=== PATIENT | male | born 1970 | race Caucasian/White ===

== ENCOUNTER 2016-08-18 16:14 | Emergency (ER) | payer OTHER ==
[~2016-08-18] VITALS: Ht 165.1 cm; Wt 107.0 kg
[~2016-08-18 16:14] MED LIST: HYDR-762 PO; ONDA4TAB35 PO
[2016-08-18 16:25] VITALS: Ht 165.1 cm; Wt 107.0 kg
[2016-08-18] MEDS ORDERED: KETOROLAC 30 MG INJ IV STA (16:53)
[2016-08-18] MEDS ORDERED: SOD CHLORIDE 0.9% 1,000 ML IV ONE (17:00)
[2016-08-18 17:02] LABS: URINE BLOOD (Dip) POC 1+ (NEGATIVE)
--- NOTE | 2016-08-18 17:35 | RADRPT ---
PROCEDURE: Renal US. CLINICAL INDICATION: Flank pain. TECHNIQUE: Multiple sonographic images of the kidneys and urinary bladder were obtained. The imag es were reviewed on a PACS workstation. COMPARISON: CT scan of the abdomen and pelvis dated 03/14/2015. FINDINGS: The right kidney measures 12.8 cm. The left kidney measures 13.0 cm. There is no renal mass. There is no hydronephrosis. There is a nonobstructing calculus in the left renal pelvis measuring 1.6 cm. There is no other laura al calculus. Renal parenchymal thickness is normal bilaterally. Echogenicity is normal bilaterally. The perirenal regions are normal with no fluid collection or mass. The urinary bladder is unremarkable. IMPRESSION: 1. Nonobstructing 1.6 cm calculus in the left renal pelvis. 2. Otherwise normal renal ultrasound. RPTAT: QQ .Pete Araujo MD, Date Time Electronically viewed and signed by .Pete Araujo MD, MD on 08/18/2016 17:35 .R/
[2016-08-18 17:40] LABS: ADD UMIC YES; UR ASCORBIC ACID NEGATIVE (NEGATIVE); UR BILIRUBIN (Dip) NEGATIVE (NEGATIVE); UR BLOOD (Dip) 2+ mg/dL (NEGATIVE); UR CLARITY CLEAR (CLEAR); UR COLOR STRAW (YELLOW); UR GLUCOSE (Dip) NEGATIVE (NEGATIVE); UR KETONES (Dip) NEGATIVE (NEGATIVE); UR LEUKOCYTE ESTERASE (Dip) NEGATIVE Leu/ul (NEGATIVE); UR NITRITE (Dip) NEGATIVE (NEGATIVE); UR RBC 0 /HPF (0-5); UR SPECIFIC GRAVITY (Dip) 1.011 (1.003-1.030); UR TOTAL PROTEIN (Dip) NEGATIVE (NEGATIVE); UR UROBILINOGEN (Dip) NEGATIVE (NEGATIVE)
[2016-08-18 17:53] LABS: ADD SCAN DIFF NO
[2016-08-18 17:56] LABS: ABNORMAL IP MESSAGE 1; BASOPHILS % 0.4 % (0.0-2.0); EOSINOPHILS # 0.1 10^3/ul (0.0-0.5); EOSINOPHILS % 1.4 % (0.0-7.0); HEMATOCRIT 41.8 % (42.0-52.0); HEMOGLOBIN 13.2 g/dl (14.0-18.0); LYMPHOCYTES # 1.8 10^3/ul (0.8-2.9); MEAN CORPUSCULAR HEMOGLOBIN 26.8 pg (29.0-33.0); MEAN CORPUSCULAR HGB CONC 31.6 g/dl (32.0-37.0); MEAN PLATELET VOLUME 13.4 fl (7.4-10.4); MONOCYTE # 0.8 10^3/ul (0.3-0.9); MONOCYTES % 7.9 % (0.0-11.0); NEUTROPHIL # 6.7 10^3/ul (1.6-7.5); NEUTROPHILS % 70.6 % (39.0-77.0); PLATELET COUNT 147 10^3/UL (140-415); RED BLOOD COUNT 4.92 10^6/ul (4.70-6.10); RED CELL DISTRIBUTION WIDTH 15.2 % (11.5-14.5); WHITE BLOOD COUNT 9.5 10^3/ul (4.8-10.8)
[2016-08-18 18:19] LABS: ALBUMIN 4.5 g/dl (3.3-4.9); ALBUMIN/GLOBULIN RATIO 1.55; BILIRUBIN,INDIRECT 0.3 mg/dl (0-1.1); BILIRUBIN,TOTAL 0.3 mg/dl (0.2-1.3); CALCIUM 9.6 mg/dl (8.4-10.2); CREATININE 1.12 mg/dl (0.61-1.24); POTASSIUM 3.8 mmol/L (3.5-5.1); TOTAL PROTEIN 7.4 g/dl (6.1-8.1)
[2016-08-18 19:44] LABS: PARTIAL THROMBOPLASTIN TIME 40.6 Sec (25.0-35.0)
[2016-08-18 20:54] LABS: INR 0.96; PROTIME 12.8 Sec (12.2-14.2)
[2016-08-18] MEDS ORDERED: NAPR-260 PO (21:01)
[2016-08-18] MEDS ORDERED: TAMS-14 PO (21:01)
[2016-08-18] MEDS ORDERED: HYDR-906 PO (21:03)
[2016-08-18] MEDS ORDERED: HYDR25SU23 PR (21:16)
[2016-08-18 21:26] VITALS: BP 118/78; PULSE 72; RESP 20; TEMP 98.7
--- NOTE | 2016-08-19 00:08 | ERD ---
ER Documentation Chief Complaint Date/Time DATE: 08/19/16 TIME: 00:05 Chief Complaint Complains of back pain x 4 -5 days HPI 46-year-old male patient with a past medical history of nephrolithiasis presents the ED complaining of left flank pain that started about 4-5 days ago. Patient reports that it is a sharp pain and rates it a 10 out of 10. States that the pain radiates from the left flank region to the left lower quadrant. States that he also may have a history of hemorrhoids and feels like he is having slight rectal bleeding upon wiping on the toilet paper. Patient reports that it is bright red in color. States that this is been going on intermittently for 1 year. Denies having any rectal intercourse. Denies any chest pain, shortness of breath, nausea, vomiting, diarrhea, constipation. Denies any melena or bloody stools. ROS All systems reviewed and are negative except as per history of present illness. Medications Home Meds Active Scripts Oxycodone HCl/Acetaminophen (Percocet 5-325 mg Tablet) 1 Each Tablet, 1 TAB PO Q4 for flank pain, #14 TAB Prov:KAITLINDEIRDRE 08/24/16 Hydrocortisone Acetate (Anusol-Hc) 25 Mg Supp.rect, 1 SUPP [place] BID Y for HEMORROID PAIN/ITCHING, #12 SUPP.RECT Prov:RUFINO RIZZO PA-C 08/18/16 Hydrocodone/Acetaminophen ([place] 5-325 Tablet) 1 Each Tablet, 1 TAB PO Q6H Y for PAIN, #14 TAB Prov:RUFINO RIZZO PA-C 08/18/16 Tamsulosin Hcl* (Flomax*) 0.4 Mg Cap.er.24h, 0.4 MG PO QPM, #20 CAP Prov:RUFINO RIZZO PA-C 08/18/16 Ondansetron Hcl* (Zofran* ODT) 4 mg -ODT Tab.disper, 4 MG PO Q6 Y for NAUSEA AND /OR VOMITING, #30 TAB Prov:TRISH GARCÍA MD 03/14/15 Hydrocodone Bit-Acetaminophen* ([place]*) 10-325 Mg Tablet, 1 TAB PO Q6 Y for PAIN , #7 TAB Prov:TRISH GARCÍA MD 03/14/15 Allergies Allergies: Coded Allergies: No Known Allergy (Unverified , 09/28/13) PMhx/Soc History of Surgery: No Hx Miscellaneous Medical Probl: No (NO MEDICAL OR SURGICAL HISTORY) Hx Alcohol Use: Yes Hx Substance Use: No Hx Tobacco Use: Yes (X1 PACK/DAY) Smoking Status: Never smoker Physical Exam Vitals Vital Signs Date Time Temp Pulse Resp B/P Pulse Ox O2 Delivery O2 Flow Rate FiO2 08/18/16 21:26 98.7 72 20 118/78 97 Room Air 08/18/16 16:25 99.1 113 20 126/84 97 Physical Exam Const: [id number], well-nourished. In no acute distress. Head: Atraumatic, normocephalic Eyes: Normal Conjunctiva without injection. No purulent discharge. ENT: Normal external ear, nose. Moist oropharynx without tonsillar exudates. Non -erythematous pharynx. Uvula midline. No drooling. No trismus. Neck: No cervical midline tenderness. Full range of motion. No meningismus. No cervical lymphadenopathy. No JVD. Resp: Clear to auscultation bilaterally. No wheezing, rhonchi, rales, or crackles. No accessory muscle use. No retractions. Cardio: Regular rate and rhythm. No murmurs, rubs or gallops. Abd: Soft, nontender, non distended. Normal bowel sounds. No palpable masses. No rebound tenderness. No guarding. Negative McBurney's point. Negative psoas sign. Negative obturator sign. Skin: No petechiae or rashes Back: No midline tenderness. No CVA tenderness. Ext: No cyanosis, or edema. Neur: Awake and alert. Normal gait. Normal coordination. Psych: Normal Mood and Affect Results 24 hrs Laboratory Tests Test 08/18/16 17:02 08/18/16 17:06 08/18/16 17:10 08/18/16 17:20 Urine Color STRAW Urine Clarity CLEAR Urine pH 5.0 Urine Specific Loyal 1.011 Urine Ketones NEGATIVEmg/dL Urine Nitrite NEGATIVEmg/dL Urine Bilirubin NEGATIVEmg/dL Urine Urobilinogen NEGATIVEmg/dL Urine Leukocyte Esterase NEGATIVELeu/ul Urine Microscopic RBC 0/HPF Urine Microscopic WBC 2/HPF Urine Hemoglobin 2+mg/dL Urine Glucose NEGATIVEmg/dL Urine Total Protein NEGATIVEmg/dl Bedside Urine pH (LAB) 5.5 Bedside Urine Protein (LAB) Negative Bedside Urine Glucose (UA) Negative Bedside Urine Ketones (LAB) Negative Bedside Urine Blood 1+ Bedside Urine Nitrite (LAB) Negative Bedside Urine Leukocyte Esterase (L Negative White Blood Count 9.510^3/ul Red Blood Count 4.9210^6/ul Hemoglobin 13.2g/dl Hematocrit 41.8% Mean Corpuscular Volume 85.0fl Mean Corpuscular Hemoglobin 26.8pg Mean Corpuscular Hemoglobin Concent 31.6g/dl Red Cell Distribution Width 15.2% Platelet Count 85624^3/UL Mean Platelet Volume 13.4fl Neutrophils % 70.6% Lymphocytes % 19.0% Monocytes % 7.9% Eosinophils % 1.4% Basophils % 0.4% Nucleated Red Blood Cells % 0.0/100WBC Neutrophils # 6.710^3/ul Lymphocytes # 1.810^3/ul Monocytes # 0.810^3/ul Eosinophils # 0.110^3/ul Basophils # 0.010^3/ul Nucleated Red Blood Cells # 0.010^3/ul Prothrombin Time 12.8Sec Prothrombin Time Ratio 1.0 INR International Normalized Ratio 0.96 Activated Partial Thromboplast Time 40.6Sec Sodium Level 145mmol/L Potassium Level 3.8mmol/L Chloride Level 109mmol/L Carbon Dioxide Level 25mmol/L Anion Gap 15 Blood Urea Nitrogen 19mg/dl Creatinine 1.12mg/dl Glucose Level 150mg/dl Calcium Level 9.6mg/dl Total Bilirubin 0.3mg/dl Direct Bilirubin 0.00mg/dl Indirect Bilirubin 0.3mg/dl Aspartate Amino Transf (AST/SGOT) 20IU/L Alanine Aminotransferase (ALT/SGPT) 35IU/L Alkaline Phosphatase 65IU/L Total Protein 7.4g/dl Albumin 4.5g/dl Globulin 2.90g/dl Albumin/Globulin Ratio 1.55 Lipase 61U/L Stool Occult Blood POSITIVE Current Medications Medications (Trade) Dose Ordered Sig/Jaison Route PRN Reason Start Time Stop Time Status Last Admin Dose Admin Ketorolac Tromethamine 30 mg 30 mg ONCE STAT IV 08/18/16 16:53 08/18/16 16:56 DC 08/18/16 17:13 Sodium Chloride (NS) 1,000 ml @ 1,000 mls/hr Q1H ONCE IV 08/18/16 17:00 08/18/16 17:59 DC 08/18/16 17:13 Procedures/MDM This is a 46-year-old male patient with no significant past medical history presents to the ED complaining of back pain that started 5 days ago. Patient is afebrile and nontoxic-appearing. Patient has normal vital signs. Patient was further worked up with CBC, CMP, lipase, UA, renal ultrasound. Positive Hemoccult. Could likely be due to hemorrhoids. However patient was strictly instructed to follow-up with his primary care physician for a referral to plan nurse obtain a colonoscopy. Patient's pain and symptoms have improved after treatment with 30 mg IV ketorolac, 1 L of normal saline. CBC: No leukocytosis. No e/o of systemic infection. No e/o anemia. CMP: No e/o severe acidosis, alkalosis, renal failure, diabetic ketoacidosis, liver disease Lipase within normal limits. Urine: No leukocyte esterase, no nitrites, no hematuria. Pending urine culture. PROCEDURE: Renal US. CLINICAL INDICATION: Flank pain. TECHNIQUE: Multiple sonographic images of the kidneys and urinary bladder were obtained. The images were reviewed on a PACS workstation. COMPARISON: CT scan of the abdomen and pelvis dated 03/14/2015. FINDINGS: The right kidney measures 12.8 cm. The left kidney measures 13.0 cm. There is no renal mass. There is no hydronephrosis. There is a nonobstructing calculus in the left renal pelvis measuring 1.6 cm. There is no other renal calculus. Renal parenchymal thickness is normal bilaterally. Echogenicity is normal bilaterally. The perirenal regions are normal with no fluid collection or mass. The urinary bladder is unremarkable. IMPRESSION: 1. Nonobstructing 1.6 cm calculus in the left renal pelvis. 2. Otherwise normal renal ultrasound. Patient has a nonobstructing 1.6 cm calculus in the left renal pelvis. There is no suspicion for any hydronephrosis or septic renal stone. Low suspicion for GI bleed, gastritis, GERD, peptic ulcer disease, cholecystitis, choledocholithiasis, cholangitis, pancreatitis, appendicitis, bowel obstruction , ileus, volvulus, nephrolithiasis, pyelonephritis, hepatitis, perforated viscus , diverticulitis, abdominal hernia, acute abdomen, mesenteric ischemia or other emergent conditions. Discharge medications: Horse [place], Tamsulosin Follow up with primary care physician in 1-2 days for referral to plan nurse for colonoscopy for urologist for rental stone. Instructed patient to return to the ED sooner for any worsening symptoms. Patient's questions were answered. Patient understood and agreed with discharge plan. Patient discharged stable. Departure Diagnosis: Primary Impression: Flank pain Condition: Stable Patient Instructions: Hemorrhoids, Kidney Stone W/ Colic Referrals: [facility] YOU HAVE RECEIVED A MEDICAL SCREENING EXAM AND THE RESULTS INDICATE THAT YOU DO NOT HAVE A CONDITION THAT REQUIRES URGENT TREATMENT IN THE EMERGENCY DEPARTMENT. FURTHER EVALUATION AND TREATMENT OF YOUR CONDITION CAN WAIT UNTIL YOU ARE SEEN IN YOUR DOCTORS OFFICE WITHIN THE NEXT 1-2 DAYS. IT IS YOUR RESPONSIBILITY TO MAKE AN APPOINTMENT FOR FOLOW-UP CARE. IF YOU HAVE A PRIMARY DOCTOR --you should call your primary doctor and schedule an appointment IF YOU DO NOT HAVE A PRIMARY DOCTOR YOU CAN CALL OUR PHYSICIAN REFERRAL HOTLINE AT IF YOU CAN NOT AFFORD TO SEE A PHYSICIAN YOU CAN CHOSE FROM THE FOLLOWING [facility] [email or web address] [facility]. [facility] [email or web address] [facility]. [facility] [address] [facility] [facility] [address] [facility] [address] [facility]. [facility]. [address] [facility]. [facility] YOU HAVE RECEIVED A MEDICAL SCREENING EXAM AND THE RESULTS INDICATE THAT YOU DO NOT HAVE A CONDITION THAT REQUIRES URGENT TREATMENT IN THE EMERGENCY DEPARTMENT. FURTHER EVALUATION AND TREATMENT OF YOUR CONDITION CAN WAIT UNTIL YOU ARE SEEN IN YOUR DOCTORS OFFICE WITHIN THE NEXT 1-2 DAYS. IT IS YOUR RESPONSIBILITY TO MAKE AN APPOINTMENT FOR FOLOW-UP CARE. IF YOU HAVE A PRIMARY DOCTOR --you should call your primary doctor and schedule and appointment IF YOU DO NOT HAVE A PRIMARY DOCTOR YOU CAN CALL OUR PHYSICIAN REFERRAL HOTLINE AT . IF YOU CAN NOT AFFORD TO SEE A PHYSICIAN YOU CAN CHOSE FROM THE FOLLOWING [facility] INSTITUTIONS: [facility] [address] [place] [address] [facility] [address] [place] [address] [facility] [address] [place] [address] [facility] URGENT CARE/SPECIALTIES Additional Instructions: Call your primary care doctor TOMORROW for an appointment during the next 2-3 days for a referral to see a plan nurse to obtain a colonscopy and also see a urologist for diagnosed kidney stone. See the doctor sooner or return here if your condition worsens before your appointment time. You have been given a medicine which may cause drowsiness.DO NOT DRIVE OR OPERATE DANGEROUS MACHINERY while taking this medicine! RUFINO RIZZO PA-C Aug 19, 2016 00:08 RUFINO RIZZO PA-C Aug 19, 2016 00:08
[2016-08-28] MEDS ORDERED: AMO500 PO (02:05)
[2016-08-28] MEDS ORDERED: IBUP400T22 PO (02:05)
[2016-08-28] MEDS ORDERED: METF500T4 PO (02:05)
[2016-08-28] MEDS ORDERED: CIPR500T4 PO (02:05)
[2016-08-28] MEDS ORDERED: CEPH500C PO (02:05)
[2016-08-28] MEDS ORDERED: OMEP40CA6 PO (02:05)
[2016-08-28] MEDS ORDERED: ACET-141 PO (02:05)
[2016-08-31] MEDS ORDERED: TAMS-14 PO ×2 (10:33→12:15)
== END 2016-08-18 21:29 | disposition home or self-care (01) ==
LOC: FTE 16:14
DX: R10.9 Unspecified abdominal pain (principal); F17.210 Nicotine dependence, cigarettes, uncomplicated
CPT/HCPCS: 36415; 76775; 80053; 81001; 82270; 83690; 85025; 85610; 85730; 87086; 96374; J1885; J7030; Z7502; 81003

== ENCOUNTER 2016-08-23 23:58 | Emergency (ER) | payer OTHER ==
[~2016-08-23] VITALS: Ht 172.7 cm; Wt 100.0 kg
[~2016-08-23 23:58] MED LIST changes: +HYDR-906 PO; +HYDR25SU23 PR; +TAMS-14 PO
[2016-08-24] VITALS: Ht 172.7 cm; Wt 100.0 kg
[2016-08-24] MEDS ORDERED: SOD CHLORIDE 0.9% 1,000 ML IV STA (01:03)
[2016-08-24] MEDS ORDERED: ONDANSETRON 4 MG INJ IV STA (01:03)
[2016-08-24] MEDS ORDERED: HYDROmorphONE 1 MG/ML SYG IV STA (01:03)
--- NOTE | 2016-08-24 01:32 | ERD ---
ER Documentation Chief Complaint Date/Time DATE: 08/24/16 TIME: 01:24 Chief Complaint RIGHT FLANK PAIN TONIGHT HX KIDNEY STONE HPI This 46-year-old male patient brought in by EMT for right flank pain. Patient has history of nephrolithiasis is seen here at [facility] August 20, 2015. Patient currently is taking Elkhorn and Flomax for pain reports that pain has not improved it is described as sharp and rates it at 25 on pain scale. Patient is in room with his family, patient's reports that he was called today by [facility] physician and told he had a urinary tract infection started on cephalexin 1 500 mg 1 tab p.o. twice daily 7 days. Patient's also reports he is being treated by his primary physician for H pylori with clarithromycin 500 mg 1 tab p.o. twice daily 10 days and amoxicillin 500 mg 2 tabs p.o. twice daily. Chart review shows that patient has an E. coli urinary tract infection resistant to ampicillin greater than 32. Tobramycin sensitivity less than 1. Patient will continue all medications as prescribed. Patient had a renal ultrasound on 08/19/2015 documenting a nonobstructing 1.6 cm calculi in the left renal pelvis, otherwise normal renal ultrasound documented. ROS All systems reviewed and are negative except as per history of present illness. Medications Home Meds Active Scripts Hydrocortisone Acetate (Anusol-Hc) 25 Mg Supp.rect, 1 SUPP [place] BID Y for HEMORROID PAIN/ITCHING, #12 SUPP.RECT Prov:RUFINO RIZZO PA-C 08/18/16 Hydrocodone/Acetaminophen (Elkhorn 5-325 Tablet) 1 Each Tablet, 1 TAB PO Q6H Y for PAIN, #14 TAB Prov:RUFINO RIZZO PA-C 08/18/16 Reported Medications Tamsulosin Hcl* (Flomax*) 0.4 Mg Cap.er.24h, 0.4 MG PO BID, CAP 08/31/16 Omeprazole* (Omeprazole*) 40 Mg Capsule.dr, 40 MG PO DAILY, #30 CAP 08/28/16 Metformin* (Glucophage*) 500 Mg Tab, 500 MG PO WITH BREAKFAST DINNE, #30 TAB 08/28/16 Acetaminophen* (Acetaminophen*) 500 MG Extra Strength Tablet, 500 MG PO Q4H Y for PAIN AND OR ELEVATED TEMP, TAB 08/28/16 Discontinued Reported Medications Ciprofloxacin Hcl* (Ciprofloxacin Hcl*) 500 Mg Tablet, 500 MG PO BID, #14 TAB 08/28/16 Cephalexin* (Cephalexin*) Unknown Strength Capsule, PO Q6, #28 CAP 08/28/16 Amoxicillin* (Amoxicillin*) 500 Mg Cap, 500 MG PO BID, #20 CAP 08/28/16 Ibuprofen* (Ibuprofen*) 400 Mg Tablet, 400 MG PO Q6H Y for PAIN, TAB 08/28/16 Discontinued Scripts Oxycodone HCl/Acetaminophen (Percocet 5-325 mg Tablet) 1 Each Tablet, 1 TAB PO Q4 for flank pain, #14 TAB Prov:KAITLINDEIRDRE 08/24/16 Tamsulosin Hcl* (Flomax*) 0.4 Mg Cap.er.24h, 0.4 MG PO QPM, #20 CAP Prov:RUFINO RIZZO PA-C 08/18/16 Allergies Allergies: Coded Allergies: No Known Allergy (Unverified , 08/30/16) PMhx/Soc Medical and Surgical Hx: pt denies Surgical Hx History of Surgery: No Hx Miscellaneous Medical Probl: Yes (DM) Hx Alcohol Use: Yes Hx Substance Use: No Hx Tobacco Use: Yes (X1 PACK/DAY) Smoking Status: Current every day smoker Physical Exam Vitals Vitals stable, triage notes reviewed Physical Exam Const: Obese, in obvious discomfort, no acute distress Head: Atraumatic Eyes: Normal Conjunctiva ENT: Normal External Ears, Nose and Mouth. Neck: Full range of motion..~ No meningismus. Resp: Clear to auscultation bilaterally, no respiratory distress Cardio: Regular rate and rhythm, no murmurs Abd: Soft, distended, right lower quadrant tenderness, right CVA tenderness Skin: No petechiae or rashes Back: Right flank tenderness Ext: Neur: Awake and alert Psych: Normal Mood and Affect Results 24 hrs Laboratory Tests Test 08/24/16 01:41 White Blood Count 11.210^3/ul Red Blood Count 5.0110^6/ul Hemoglobin 13.2g/dl Hematocrit 41.8% Mean Corpuscular Volume 83.4fl Mean Corpuscular Hemoglobin 26.3pg Mean Corpuscular Hemoglobin Concent 31.6g/dl Red Cell Distribution Width 14.9% Platelet Count 04076^3/UL Mean Platelet Volume 13.1fl Neutrophils % 68.4% Lymphocytes % 21.5% Monocytes % 7.7% Eosinophils % 1.2% Basophils % 0.4% Nucleated Red Blood Cells % 0.0/100WBC Neutrophils # 7.710^3/ul Lymphocytes # 2.410^3/ul Monocytes # 0.910^3/ul Eosinophils # 0.110^3/ul Basophils # 0.010^3/ul Nucleated Red Blood Cells # 0.010^3/ul Urine Color STRAW Urine Clarity CLEAR Urine pH 5.0 Urine Specific Roll[place] 1.012 Urine Ketones NEGATIVEmg/dL Urine Nitrite NEGATIVEmg/dL Urine Bilirubin NEGATIVEmg/dL Urine Urobilinogen NEGATIVEmg/dL Urine Leukocyte Esterase 1+Preeti/ul Urine Microscopic RBC 1/HPF Urine Microscopic WBC 4/HPF Urine Mucus FEW/HPF Urine Hemoglobin NEGATIVEmg/dL Urine Glucose NEGATIVEmg/dL Urine Total Protein NEGATIVEmg/dl Sodium Level 143mmol/L Potassium Level 4.0mmol/L Chloride Level 108mmol/L Carbon Dioxide Level 24mmol/L Anion Gap 15 Blood Urea Nitrogen 17mg/dl Creatinine 1.18mg/dl Glucose Level 114mg/dl Calcium Level 9.7mg/dl Total Bilirubin 0.0mg/dl Direct Bilirubin 0.00mg/dl Indirect Bilirubin 0.0mg/dl Aspartate Amino Transf (AST/SGOT) 19IU/L Alanine Aminotransferase (ALT/SGPT) 45IU/L Alkaline Phosphatase 58IU/L Total Protein 7.7g/dl Albumin 4.8g/dl Globulin 2.90g/dl Albumin/Globulin Ratio 1.65 Lipase 76U/L Current Medications Medications (Trade) Dose Ordered Sig/Jaison Route PRN Reason Start Time Stop Time Status Last Admin Dose Admin Sodium Chloride (NS) 1,000 ml @ 1,000 mls/hr Q1H STAT IV 08/24/16 01:03 08/24/16 02:02 DC 08/24/16 01:39 Hydromorphone HCl (Dilaudid) 1 mg ONCE STAT IV 08/24/16 01:03 08/24/16 01:08 DC 08/24/16 01:40 Ondansetron HCl (Zofran Inj) 4 mg ONCE STAT IV 08/24/16 01:03 08/24/16 01:08 DC 08/24/16 01:39 Urinalysis positive for leukocytosis which was not present on urinalysis done August 18, 2016, patient has started on Keflex today was called by emergency room physician has taken 1 dose. Procedures/MDM This 46-year-old with past medical history of nephrolithiasis last seen in emergency department August 18, 2016 treated for a nonobstructing kidney stone 1.6 cm left renal pelvis. Patient prescribed Flomax and Elkhorn. Patient reports pain not controlled with current medication. Patient also has a newly diagnosed urinary tract infection found on culture from urine on August 18, patient was called by emergency room physician today and started on Keflex. Patient is being treated for H pylori on Biaxin and amoxicillin. Patient to continue all medication as prescribed, culture and sensitivity for urine reviewed. Positive for E. coli resistant to ampicillin. Patient treated for pain with Dilaudid effectively will be sent home with Percocet, continue Flomax and follow-up with primary care physician for referral to gastroenterology as previously discussed. I have low suspicion for the GIB, gastritis, GERD, peptic ulcer disease, cholecystitis. I feel the patient is stable for discharge at this time. I have discussed results, examination findings, the treatment plan with the patient and family present prior to discharge. Indications for emergent reevaluation, side effects of medication were also discussed. All questions were answered. Patient verbalizes understanding and agrees with plan of care. Departure Diagnosis: Primary Impression: UTI (urinary tract infection) Urinary tract infection type: site unspecified Hematuria presence: without hematuria Qualified Code: N39.0 - Urinary tract infection without hematuria, site unspecified Additional Impression: Left nephrolithiasis Condition: Fair Patient Instructions: Kidney Stone (Urine), Understanding Urinary Tract Infections (UTIs) Additional Instructions: Thank you for for coming to [facility] for your care today. Please ask your nurse or provider if you have questions about your care today and do not leave until all your questions have been answered. Please use any medications given as directed and follow-up with your doctor (or the doctor you were referred to) in the next 2-3 days. If you do not have a primary care doctor you may follow up at the [facility] (listed below). You may also use motrin and tylenol as needed for fever and/or pain unless instructed otherwise by your provider or nurse. Indications for more urgent follow-up have been discussed, but you may return to the Emergency Department at ANY time for any worrisome or worsening symptoms. If you have abdominal pain, please know that no test or exam you received is perfect and you should follow up within 8 hours for continued pain. If you had any imaging studies today, such as an X-Ray or CT Scan, these studies will be reviewed later by a radiologist. You will be called if there are important findings that were not identified today, so make sure the contact information you provided at registration is correct. If you received any narcotic pain control medicine today, such as Vicodin, Morphine or Dilaudid, your coordination and judgment may be affected for a number of hours. Please do not drive or operate heavy machinery, and you may want someone to assist you at home. If you were given a prescription for narcotic medication, be aware that it is very addictive- use sparingly and only if necessary. DEIRDRE MADRIGAL Aug 24, 2016 01:32
[2016-08-24 02:07] LABS: ABNORMAL IP MESSAGE 1; BASOPHILS % 0.4 % (0.0-2.0); EOSINOPHILS # 0.1 10^3/ul (0.0-0.5); EOSINOPHILS % 1.2 % (0.0-7.0); HEMATOCRIT 41.8 % (42.0-52.0); HEMOGLOBIN 13.2 g/dl (14.0-18.0); LYMPHOCYTES # 2.4 10^3/ul (0.8-2.9); LYMPHOCYTES % 21.5 % (15.0-51.0); MEAN CORPUSCULAR HEMOGLOBIN 26.3 pg (29.0-33.0); MEAN CORPUSCULAR HGB CONC 31.6 g/dl (32.0-37.0); MEAN CORPUSCULAR VOLUME 83.4 fl (82.0-101.0); MEAN PLATELET VOLUME 13.1 fl (7.4-10.4); MONOCYTE # 0.9 10^3/ul (0.3-0.9); MONOCYTES % 7.7 % (0.0-11.0); NEUTROPHIL # 7.7 10^3/ul (1.6-7.5); NEUTROPHILS % 68.4 % (39.0-77.0); PLATELET COUNT 175 10^3/UL (140-415); RED BLOOD COUNT 5.01 10^6/ul (4.70-6.10); RED CELL DISTRIBUTION WIDTH 14.9 % (11.5-14.5); WHITE BLOOD COUNT 11.2 10^3/ul (4.8-10.8)
[2016-08-24 02:14] LABS: ADD UMIC YES; UR ASCORBIC ACID NEGATIVE (NEGATIVE); UR BILIRUBIN (Dip) NEGATIVE (NEGATIVE); UR BLOOD (Dip) NEGATIVE (NEGATIVE); UR CLARITY CLEAR (CLEAR); UR COLOR STRAW (YELLOW); UR GLUCOSE (Dip) NEGATIVE (NEGATIVE); UR KETONES (Dip) NEGATIVE (NEGATIVE); UR LEUKOCYTE ESTERASE (Dip) 1+ Leu/ul (NEGATIVE); UR MUCUS FEW /HPF (NONE SEEN); UR NITRITE (Dip) NEGATIVE (NEGATIVE); UR RBC 1 /HPF (0-5); UR SPECIFIC GRAVITY (Dip) 1.012 (1.003-1.030); UR TOTAL PROTEIN (Dip) NEGATIVE (NEGATIVE); UR UROBILINOGEN (Dip) NEGATIVE (NEGATIVE)
[2016-08-24 02:22] LABS: ALBUMIN 4.8 g/dl (3.3-4.9); ALBUMIN/GLOBULIN RATIO 1.65; CALCIUM 9.7 mg/dl (8.4-10.2); CREATININE 1.18 mg/dl (0.61-1.24); TOTAL PROTEIN 7.7 g/dl (6.1-8.1)
[2016-08-24] MEDS ORDERED: OXYC-279 PO (02:54)
[2016-08-24 03:39] VITALS: BP 121/81; PULSE 64; RESP 20
[2016-08-28] MEDS ORDERED: CIPR500T4 PO (02:05)
[2016-08-28] MEDS ORDERED: IBUP400T22 PO (02:05)
[2016-08-28] MEDS ORDERED: ACET-141 PO (02:05)
[2016-08-28] MEDS ORDERED: CEPH500C PO (02:05)
[2016-08-28] MEDS ORDERED: AMO500 PO (02:05)
[2016-08-28] MEDS ORDERED: OMEP40CA6 PO (02:05)
[2016-08-28] MEDS ORDERED: METF500T4 PO (02:05)
[2016-08-31] MEDS ORDERED: TAMS-14 PO ×2 (10:33→12:15)
== END 2016-08-24 03:40 | disposition home or self-care (01) ==
LOC: FTE 23:58
DX: N39.0 Urinary tract infection, site not specified (principal); N20.0 Calculus of kidney; E11.9 Type 2 diabetes mellitus without complications; F17.210 Nicotine dependence, cigarettes, uncomplicated; Z79.84 Long term (current) use of oral hypoglycemic drugs
CPT/HCPCS: 80053; 81001; 83690; 85025; J1170; J2405; J7030; 36415; 96374; 96375

== ENCOUNTER 2016-09-10 22:02 | Emergency (ER) | payer OTHER ==
[~2016-09-10] VITALS: Ht 182.9 cm; Wt 106.0 kg
[~2016-09-10 22:02] MED LIST changes: +ACET-141 PO; -HYDR-762 PO; +METF500T4 PO; +OMEP40CA6 PO; -ONDA4TAB35 PO
[2016-09-10 22:05] VITALS: Ht 182.9 cm; Wt 106.0 kg
[2016-09-11] MEDS ORDERED: SOD CHLORIDE 0.9% 1,000 ML IV STA (00:50)
[2016-09-11] MEDS ORDERED: ONDANSETRON 4 MG INJ IV STA (00:50)
[2016-09-11] MEDS ORDERED: morphine 4 MG/ML VIAL IV STA (00:50)
[2016-09-11 01:18] LABS: ADD SCAN DIFF NO
[2016-09-11 01:21] LABS: ABNORMAL IP MESSAGE 1; BASOPHIL # 0.1 10^3/ul (0.0-0.1); BASOPHILS % 0.7 % (0.0-2.0); EOSINOPHILS # 0.3 10^3/ul (0.0-0.5); EOSINOPHILS % 2.7 % (0.0-7.0); HEMATOCRIT 41.2 % (42.0-52.0); HEMOGLOBIN 13.3 g/dl (14.0-18.0); LYMPHOCYTES # 3.1 10^3/ul (0.8-2.9); LYMPHOCYTES % 30.3 % (15.0-51.0); MEAN CORPUSCULAR HEMOGLOBIN 26.5 pg (29.0-33.0); MEAN CORPUSCULAR HGB CONC 32.3 g/dl (32.0-37.0); MEAN CORPUSCULAR VOLUME 82.2 fl (82.0-101.0); MONOCYTE # 0.7 10^3/ul (0.3-0.9); MONOCYTES % 6.8 % (0.0-11.0); PLATELET COUNT 185 10^3/UL (140-415); RED BLOOD COUNT 5.01 10^6/ul (4.70-6.10); RED CELL DISTRIBUTION WIDTH 14.8 % (11.5-14.5); WHITE BLOOD COUNT 10.3 10^3/ul (4.8-10.8)
[2016-09-11 01:47] LABS: ADD UMIC YES; UR ASCORBIC ACID NEGATIVE (NEGATIVE); UR BILIRUBIN (Dip) NEGATIVE (NEGATIVE); UR BLOOD (Dip) 3+ mg/dL (NEGATIVE); UR CLARITY SLIGHTLY CLOUDY (CLEAR); UR COLOR YELLOW (YELLOW); UR GLUCOSE (Dip) NEGATIVE (NEGATIVE); UR KETONES (Dip) NEGATIVE (NEGATIVE); UR LEUKOCYTE ESTERASE (Dip) 2+ Leu/ul (NEGATIVE); UR NITRITE (Dip) NEGATIVE (NEGATIVE); UR RBC > 182 /HPF (0-5); UR SPECIFIC GRAVITY (Dip) 1.017 (1.003-1.030); UR TOTAL PROTEIN (Dip) 1+ mg/dl (NEGATIVE); UR UROBILINOGEN (Dip) NEGATIVE (NEGATIVE)
[2016-09-11 01:50] LABS: ALBUMIN 4.3 g/dl (3.3-4.9); ALBUMIN/GLOBULIN RATIO 1.19; BILIRUBIN,INDIRECT 0.1 mg/dl (0-1.1); BILIRUBIN,TOTAL 0.1 mg/dl (0.2-1.3); CALCIUM 10.2 mg/dl (8.4-10.2); CREATININE 1.03 mg/dl (0.61-1.24); POTASSIUM 4.2 mmol/L (3.5-5.1); TOTAL PROTEIN 7.9 g/dl (6.1-8.1)
--- NOTE | 2016-09-11 01:54 | ERD ---
ER Documentation Chief Complaint Date/Time DATE: 09/11/16 TIME: 01:53 Chief Complaint left flank pain, hx- kidney stones w/ stent HPI 46-year-old male presents to emergency department for complaints of left flank pain and dysuria that started today. Patient described the pain as sharp pain, 8 /10 scale, is worse upon urination. Patient denies any hematuria. Patient has history of kidney stones with stent from before. Patient denies any fever or chills. Patient denies any nausea or vomiting. Patient did not take any medications to help with symptoms. ROS All systems reviewed and are negative except as per history of present illness. Medications Home Meds Active Scripts Hydrocodone/Acetaminophen ([place] 5-325 Tablet) 1 Each Tablet, 1 EACH PO Q6 Y for PAIN, #20 TAB Prov:ARACELY SELLERS PA-C 09/18/16 Cephalexin* (Cephalexin*) 500 Mg Capsule, 500 MG PO TID, #42 CAP Prov:ARACELY SELLERS PA-C 09/18/16 Phenazopyridine Hcl* (Pyridium*) 200 Mg Tab, 200 MG PO TID Y for URINARY PAIN, # 6 TAB Prov:ESTEPHANIA WHEELER NP 09/11/16 Ciprofloxacin Hcl* (Ciprofloxacin Hcl*) 500 Mg Tablet, 500 MG PO BID for 10 Days , TAB Prov:ESTEPHANIA WHEELER NP 09/11/16 Hydrocortisone Acetate (Anusol-Hc) 25 Mg Supp.rect, 1 SUPP LA BID Y for HEMORROID PAIN/ITCHING, #12 SUPP.RECT Prov:RUFINO RIZZO PA-C 08/18/16 Hydrocodone/Acetaminophen ([place] 5-325 Tablet) 1 Each Tablet, 1 TAB PO Q6H Y for PAIN, #14 TAB Prov:RUFINO RIZZO PA-C 08/18/16 Reported Medications Tamsulosin Hcl* (Flomax*) 0.4 Mg Cap.er.24h, 0.4 MG PO BID, CAP 08/31/16 Omeprazole* (Omeprazole*) 40 Mg Capsule.dr, 40 MG PO DAILY, #30 CAP 08/28/16 Metformin* (Glucophage*) 500 Mg Tab, 500 MG PO WITH BREAKFAST DINNE, #30 TAB 08/28/16 Acetaminophen* (Acetaminophen*) 500 MG Extra Strength Tablet, 500 MG PO Q4H Y for PAIN AND OR ELEVATED TEMP, TAB 08/28/16 Allergies Allergies: Coded Allergies: No Known Allergy (Unverified , 09/18/16) PMhx/Soc History of Surgery: No Anesthesia Reaction: No Hx Neurological Disorder: No Hx Respiratory Disorders: No Hx Cardiac Disorders: No Hx Psychiatric Problems: No Hx Miscellaneous Medical Probl: Yes (DM, kidney stones) Hx Alcohol Use: Yes Hx Substance Use: No Hx Tobacco Use: Yes (X1 PACK/DAY) Smoking Status: Current every day smoker FmHx Family History: No coronary disease, No diabetes, No other Physical Exam Vitals Physical Exam GENERAL: The patient is well developed and appropriate for usual state of health, in no apparent distress. CHEST: Clear to auscultation bilaterally. There are no rales, wheezes or rhonchi. HEART: Regular rate and rhythm. No murmurs, clicks, rubs or gallops. No S3 or S4. ABDOMEN: Soft, nontender and nondistended. Good bowel sounds. No rebound or guarding. No gross peritonitis. No gross organomegaly or masses. No Mak sign or McBurney point tenderness. BACK: No midline or flank tenderness. EXTREMITIES: Equal pulses bilaterally. There is no peripheral clubbing, cyanosis or edema. No focal swelling or erythema. Full range of motion. Grossly neurovascularly intact. NEURO: Alert and oriented. Cranial nerves 2-12 intact. Motor strength in all 4 extremities with 5/5 strength. Sensation grossly intact. Normal speech and gait. SKIN: There is no apparent rash or petechia. The skin is warm and dry. HEMATOLOGIC AND LYMPHATIC: There is no evidence of excessive bruising or lymphedema. No gross cervical, axillary, or inguinal lymphadenopathy. : No scrotal tenderness, no scrotal redness noted, no penile discharge noted. Results 24 hrs Laboratory Tests Test 09/11/16 01:00 White Blood Count 10.310^3/ul Red Blood Count 5.0110^6/ul Hemoglobin 13.3g/dl Hematocrit 41.2% Mean Corpuscular Volume 82.2fl Mean Corpuscular Hemoglobin 26.5pg Mean Corpuscular Hemoglobin Concent 32.3g/dl Red Cell Distribution Width 14.8% Platelet Count 79347^3/UL Mean Platelet Volume 13.0fl Neutrophils % 58.0% Lymphocytes % 30.3% Monocytes % 6.8% Eosinophils % 2.7% Basophils % 0.7% Nucleated Red Blood Cells % 0.0/100WBC Neutrophils # 6.010^3/ul Lymphocytes # 3.110^3/ul Monocytes # 0.710^3/ul Eosinophils # 0.310^3/ul Basophils # 0.110^3/ul Nucleated Red Blood Cells # 0.010^3/ul Urine Color YELLOW Urine Clarity SLIGHTLY CLOUDY Urine pH 5.0 Urine Specific [place] 1.017 Urine Ketones NEGATIVEmg/dL Urine Nitrite NEGATIVEmg/dL Urine Bilirubin NEGATIVEmg/dL Urine Urobilinogen NEGATIVEmg/dL Urine Leukocyte Esterase 2+Preeti/ul Urine Microscopic RBC > 182/HPF Urine Microscopic WBC 23/HPF Urine Hemoglobin 3+mg/dL Urine Glucose NEGATIVEmg/dL Urine Total Protein 1+mg/dl Sodium Level 144mmol/L Potassium Level 4.2mmol/L Chloride Level 101mmol/L Carbon Dioxide Level 27mmol/L Anion Gap 20 Blood Urea Nitrogen 20mg/dl Creatinine 1.03mg/dl Glucose Level 124mg/dl Calcium Level 10.2mg/dl Total Bilirubin 0.1mg/dl Direct Bilirubin 0.00mg/dl Indirect Bilirubin 0.1mg/dl Aspartate Amino Transf (AST/SGOT) 22IU/L Alanine Aminotransferase (ALT/SGPT) 56IU/L Alkaline Phosphatase 61IU/L Total Protein 7.9g/dl Albumin 4.3g/dl Globulin 3.60g/dl Albumin/Globulin Ratio 1.19 Lipase 74U/L Current Medications Medications (Trade) Dose Ordered Sig/Jaison Route PRN Reason Start Time Stop Time Status Last Admin Dose Admin Sodium Chloride (NS) 1,000 ml @ 1,000 mls/hr Q1H STAT IV 09/11/16 00:50 09/11/16 01:49 DC 09/11/16 01:11 Morphine Sulfate (morphine) 4 mg ONCE STAT IV 09/11/16 00:50 09/11/16 00:52 DC 09/11/16 01:11 Ondansetron HCl 4 mg 4 mg ONCE STAT IV 09/11/16 00:50 09/11/16 00:52 DC 09/11/16 01:11 Ceftriaxone Sodium (Rocephin) 50 ml @ 100 mls/hr ONCE ONCE IVPB 09/11/16 03:00 09/11/16 03:28 DC 09/11/16 03:00 Phenazopyridine HCl (Pyridium) 200 mg ONCE ONCE PO 09/11/16 03:00 09/11/16 03:01 DC 09/11/16 03:00 Ketorolac Tromethamine (Toradol) 30 mg ONCE STAT IV 09/11/16 02:54 09/11/16 02:55 DC 09/11/16 03:01 Patient was given medication for pain here in emergency department, after treatment, patient verbalized feeling much better. Patient's pain is improved.Patient was given Zofran here in the emergency department. After treatment, patient was able to tolerate po fluids here in the emergency department without any vomiting. There is no signs and symptoms of dehydration. Normal saline IV bolus was given here in emergency department for rehydration, patient tolerated IV fluids. PROCEDURE: CT ABDOMEN/PELVIS WITHOUT CONTRAST CLINICAL INDICATION: 46-year-old male with abdominal pain. TECHNIQUE: The study was performed utilizing a [id number] 64-slice CT scanner. Direct axial sections were obtained through the abdomen and pelvis without the use of intravenous contrast material. Sagittal and coronal reformations were obtained. One or more of the following dose reduction techniques were utilized: automated exposure control, adjustment of the mA and/ or kV according to patient's size or use of iterative reconstruction technique. The images were reviewed on a PACS workstation. CTD/vol = 20.5 mGy; Total Exam DLP = 1427.1 mGy-cm. COMPARISON: CT abdomen/pelvis August 28, 2016. FINDINGS: There is minimal bibasilar subsegmental atelectasis.. There is no evidence for significant pleural effusion. The liver has a normal size and contour without focal areas of abnormal density. No intrahepatic nor extrahepatic biliary ductal dilatation is seen. The gallbladder demonstrates no wall thickening nor pericholecystic fluid. No biliary stones are evident. The pancreas is without areas of abnormal attenuation. The spleen is identified and has a normal size without abnormal density. The adrenal glands are unremarkable. There is scarring identified within the mid right kidney without evidence for abnormal density or obstructive uropathy. There is a left ureteral stent present with the upper portion of the stent in the right upper pole renal raymundo and the lower aspect in the bladder. There is a large calculus within the pelvis region measuring approximately 20 x 12 x 24 mm. There is a nonobstructing left lower pole renal calculus measuring approximately 5 x 9 x 7 mm. There is minimal prominence of the left renal collecting system without ken hydronephrosis. There is a left mid renal cyst measuring approximately 12 x 9 x 9 mm. There is a small umbilical hernia with an opening of 10 x 11 mm containing fat. There is mild retained stool throughout the colon without obstruction.. The appendix is visualized and is without abnormal thickening or surrounding inflammatory reaction. The aortoiliac vessels are without aneurysmal dilatation. Mild degenerative changes are seen within the spine. IMPRESSION: 1. Interval placement of left ureteral stent with minimal prominence of the left renal collecting system without ken obstructive uropathy. 2. Large left renal pelvis calculus with smaller left lower pole renal raymundo calculus. 3. Left renal cyst. 4. Retained stool within the colon without obstruction. 5. No CT evidence for appendicitis. .Jayjay Mccurdy MD, MD Date Time Electronically viewed and signed by .Jayjay Mccurdy MD, MD on 09/11/2016 02:14 .M/ CC: ESTEPHANIA WHEELER PROJECT MANAGER/DESIGN MANAGER Procedures/MDM Medical Decision Making: Patient symptoms consistent with urinary tract infection, possible early pyelonephritis. No Symptoms of any septic stone. There is low suspicion for abdominal emergencies at this time. Patients abdominal exam is normal at this time. Patients radiology exam does not show any abdominal emergencies at this time. There is low suspicion for appendicitis , cholecystitis, abdominal aortic aneurysms or peritonitis at this time. There is low suspicion for sepsis. Patient appears well and is hemodynamically stable. Disposition: Home. Condition: Stable Prescription ciprofloxacin, Pyridium Instructions: Patient is advised to take medications as prescribed. Patient is advised to rest, increase fluid intake and do it perineal hygiene. Patient is advised that if symptoms are worse, severe abdominal pain, uncontrolled vomiting , high fever, severe flank pain, worst signs and symptoms, to return to the emergency department immediately. Otherwise, patient can follow up with primary care doctor in 5-7 days. Disclaimer: Inadvertent spelling and grammatical errors are likely due to EHR/ dictation software use and do not reflect on the overall quality of patient care. Also, please note that the electronic time recorded on this note does not necessarily reflect the actual time of the patient encounter. Departure Diagnosis: Primary Impression: Pyelonephritis Condition: Stable Patient Instructions: Pyelonephritis, Male (Adult) Additional Instructions: Patient is advised to take medications as prescribed. Patient is advised to rest , increase fluid intake and do it perineal hygiene. Patient is advised that if symptoms are worse, severe abdominal pain, uncontrolled vomiting, high fever, severe flank pain, worst signs and symptoms, to return to the emergency department immediately. Otherwise, patient can follow up with primary care doctor in 5-7 days. ESTEPHANIA WHEELER NP Sep 11, 2016 01:54
--- NOTE | 2016-09-11 02:14 | RADRPT ---
PROCEDURE: CT ABDOMEN/PELVIS WITHOUT CONTRAST CLINICAL INDICATION: 46-year-old male with abdominal pain. TECHNIQUE: The study was performed utilizing a GE SideSteppeed VCT 64-slice CT scanner. Direct axia l sections were obtained through the abdomen and pelvis without the use of intravenous contrast mate rial. Sagittal and coronal reformations were obtained. One or more of the following dose reduction t echniques were utilized: automated exposure control, adjustment of the mA and/or kV according to pat ient's size or use of iterative reconstruction technique. The images were reviewed on a PACS workst atEncover. CTD/vol = 20.5 mGy; Total Exam DLP = 1427.1 mGy-cm. COMPARISON: CT abdomen/pelvis August 28, 2016. FINDINGS: There is minimal bibasilar subsegmental atelectasis.. There is no evidence for significant pleural effusion. The liver has a normal size and contour without focal areas of abnormal density. No intra hepatic nor extrahepatic biliary ductal dilatation is seen. The gallbladder demonstrates no wall thi ckening nor pericholecystic fluid. No biliary stones are evident. The pancreas is without areas of a bnormal attenuation. The spleen is identified and has a normal size without abnormal density. The a drenal glands are unremarkable. There is scarring identified within the mid right kidney without rodri dence for abnormal density or obstructive uropathy. There is a left ureteral stent present with the upper portion of the stent in the right upper pole renal raymundo and the lower aspect in the bladder. There is a large calculus within the pelvis region measuring approximately 20 x 12 x 24 mm. There is a nonobstructing left lower pole renal calculus measuring approximately 5 x 9 x 7 mm. There is minimal prominence of the left renal collecting system without ken hydronephrosis. There is a lef t mid renal cyst measuring approximately 12 x 9 x 9 mm. There is a small umbilical hernia with an op ening of 10 x 11 mm containing fat. There is mild retained stool throughout the colon without obstr uction.. The appendix is visualized and is without abnormal thickening or surrounding inflammatory reaction. The aortoiliac vessels are without aneurysmal dilatation. Mild degenerative changes are se en within the spine. IMPRESSION: 1. Interval placement of left ureteral stent with minimal prominence of the left renal collecting s ystem without ken obstructive uropathy. 2. Large left renal pelvis calculus with smaller left lower pole renal raymundo calculus. 3. Left renal cyst. 4. Retained stool within the colon without obstruction. 5. No CT evidence for appendicitis. .Jayjay Mccurdy MD, Date Time Electronically viewed and signed by .Jayjay Mccurdy MD, on 09/11/2016 02:14 .M/
[2016-09-11] MEDS ORDERED: PHEN-538 PO (02:50)
[2016-09-11] MEDS ORDERED: CIPR500T4 PO (02:50)
[2016-09-11] MEDS ORDERED: KETOROLAC 30 MG INJ IV STA (02:54)
[2016-09-11] MEDS ORDERED: PHENAZOPYRIDINE 100 MG TAB PO ONE (03:00)
[2016-09-11] MEDS ORDERED: CEFTRIAXONE 1 GM/50 ML (PMX) 50 ML IVPB ONE (03:00)
[2016-09-11 03:27] VITALS: BP 127/89; PULSE 82; RESP 16
== END 2016-09-11 03:28 | disposition home or self-care (01) ==
LOC: FTE 22:02
DX: N12 Tubulo-interstitial nephritis, not specified as acute or chronic (principal); E11.9 Type 2 diabetes mellitus without complications; F17.210 Nicotine dependence, cigarettes, uncomplicated; Z79.84 Long term (current) use of oral hypoglycemic drugs
CPT/HCPCS: 36415; 74176; 80053; 81001; 83690; 85025; 96374; 96375; J0696; J1885; J2270; J2405; J7030; Z7502; Z7610

== ENCOUNTER 2016-09-18 10:51 | Emergency (ER) | payer OTHER ==
[~2016-09-18] VITALS: Ht 177.8 cm; Wt 104.0 kg
[~2016-09-18 10:51] MED LIST changes: +CIPR500T4 PO; +PHEN-538 PO
[2016-09-18 10:54] VITALS: Ht 177.8 cm; Wt 104.0 kg
[2016-09-18] MEDS ORDERED: SOD CHLORIDE 0.9% 1,000 ML IV STA (11:19)
[2016-09-18] MEDS ORDERED: HYDROmorphONE 1 MG/ML SYG IV STA ×2 (11:19→14:20)
[2016-09-18] MEDS ORDERED: ONDANSETRON 4 MG INJ IV STA (11:19)
[2016-09-18] MEDS ORDERED: KETOROLAC 30 MG INJ IV STA (11:19)
[2016-09-18 11:56] LABS: ABNORMAL IP MESSAGE 1; BASOPHIL # 0.1 10^3/ul (0.0-0.1); BASOPHILS % 0.9 % (0.0-2.0); EOSINOPHILS # 0.2 10^3/ul (0.0-0.5); EOSINOPHILS % 2.6 % (0.0-7.0); HEMATOCRIT 40.5 % (42.0-52.0); HEMOGLOBIN 13.2 g/dl (14.0-18.0); LYMPHOCYTES % 25.3 % (15.0-51.0); MEAN CORPUSCULAR HEMOGLOBIN 26.5 pg (29.0-33.0); MEAN CORPUSCULAR HGB CONC 32.6 g/dl (32.0-37.0); MEAN CORPUSCULAR VOLUME 81.2 fl (82.0-101.0); MEAN PLATELET VOLUME 13.3 fl (7.4-10.4); MONOCYTE # 0.7 10^3/ul (0.3-0.9); MONOCYTES % 8.1 % (0.0-11.0); NEUTROPHILS % 61.9 % (39.0-77.0); PLATELET COUNT 168 10^3/UL (140-415); POSITIVE DIFF @See below; RED BLOOD COUNT 4.99 10^6/ul (4.70-6.10); RED CELL DISTRIBUTION WIDTH 14.8 % (11.5-14.5)
[2016-09-18 12:18] LABS: ALBUMIN 4.4 g/dl (3.3-4.9); ALBUMIN/GLOBULIN RATIO 1.33; BILIRUBIN,INDIRECT 0.3 mg/dl (0-1.1); BILIRUBIN,TOTAL 0.3 mg/dl (0.2-1.3); CALCIUM 9.5 mg/dl (8.4-10.2); CREATININE 1.15 mg/dl (0.61-1.24); POTASSIUM 4.3 mmol/L (3.5-5.1); TOTAL PROTEIN 7.7 g/dl (6.1-8.1)
--- NOTE | 2016-09-18 13:07 | ERD ---
ER Documentation Chief Complaint Date/Time DATE: 09/18/16 TIME: 13:07 Chief Complaint LT FLANK PAIN H/O KIDNEY STONE , WAITING ON SURGERY HPI 46 year old male with history of DMII presents with recurrent left flank pain starting this morning due to large renal calculi. Patient has been evaluated numerous times before at this facility and has surgery date set with on September 28. Patient denies fevers, hematuria. He took Pyridium for pain ROS All systems reviewed and are negative except as per history of present illness. Medications Home Meds Active Scripts Hydrocodone/Acetaminophen ([place] 5-325 Tablet) 1 Each Tablet, 1 EACH PO Q6 Y for PAIN, #20 TAB Prov:ARACELY SELLERS PA-C 09/18/16 Cephalexin* (Cephalexin*) 500 Mg Capsule, 500 MG PO TID, #42 CAP Prov:ARACELY SELLERS PA-C 09/18/16 Phenazopyridine Hcl* (Pyridium*) 200 Mg Tab, 200 MG PO TID Y for URINARY PAIN, # 6 TAB Prov:ESTEPHANIA WHEELER NP 09/11/16 Ciprofloxacin Hcl* (Ciprofloxacin Hcl*) 500 Mg Tablet, 500 MG PO BID for 10 Days , TAB Prov:ESTEPHANIA WHEELER NP 09/11/16 Hydrocortisone Acetate (Anusol-Hc) 25 Mg Supp.rect, 1 SUPP PA BID Y for HEMORROID PAIN/ITCHING, #12 SUPP.RECT Prov:RUFINO RIZZO PA-C 08/18/16 Hydrocodone/Acetaminophen ([place] 5-325 Tablet) 1 Each Tablet, 1 TAB PO Q6H Y for PAIN, #14 TAB Prov:RUFINO RIZZO PA-C 08/18/16 Reported Medications Tamsulosin Hcl* (Flomax*) 0.4 Mg Cap.er.24h, 0.4 MG PO BID, CAP 08/31/16 Omeprazole* (Omeprazole*) 40 Mg Capsule.dr, 40 MG PO DAILY, #30 CAP 08/28/16 Metformin* (Glucophage*) 500 Mg Tab, 500 MG PO WITH BREAKFAST DINNE, #30 TAB 08/28/16 Acetaminophen* (Acetaminophen*) 500 MG Extra Strength Tablet, 500 MG PO Q4H Y for PAIN AND OR ELEVATED TEMP, TAB 08/28/16 Allergies Allergies: Coded Allergies: No Known Allergy (Unverified , 09/18/16) PMhx/Soc History of Surgery: No Anesthesia Reaction: No Hx Neurological Disorder: No Hx Respiratory Disorders: No Hx Cardiac Disorders: No Hx Psychiatric Problems: No Hx Miscellaneous Medical Probl: Yes (DM, kidney stones) Hx Alcohol Use: Yes Hx Substance Use: No Hx Tobacco Use: Yes (X1 PACK/DAY) Smoking Status: Current every day smoker Physical Exam Vitals Vital Signs Date Time Temp Pulse Resp B/P Pulse Ox O2 Delivery O2 Flow Rate FiO2 09/18/16 15:37 84 18 113/71 100 Room Air 09/18/16 14:30 98.2 81 18 110/77 99 Room Air 09/18/16 10:54 98.2 100 18 140/100 99 Physical Exam GENERAL: well-developed/well-nourished, in no apparent distress, non-toxic appearing HENT: NC/AT, moist mucous membranes EYES: Conjunctiva normal NECK: Supple, no lymphadenopathy PULM: CTA bilaterally, no rales, rhonchi, or wheezing heard CV: Normal S1S2, RRR, good capillary refill GI: Soft, non-distended, tender to palpation to the pubic region Normal bowel sounds, no masses or organomegaly felt on exam No gross peritonitis, no bruits Negative Rovsing, negative Mak, negative McBurney's point, Tender palpation of the left flank, negative to severe tenderness BACK: No masses EXT: No clubbing, cyanosis, or edema NEURO: Alert and Orientated SKIN: Intact, normal turgor PSYCH: Normal mood and mentation Result Diagram: 09/18/16 1140 09/18/16 1140 Results 24 hrs Laboratory Tests Test 09/18/16 11:40 09/18/16 12:35 White Blood Count 8.010^3/ul Red Blood Count 4.9910^6/ul Hemoglobin 13.2g/dl Hematocrit 40.5% Mean Corpuscular Volume 81.2fl Mean Corpuscular Hemoglobin 26.5pg Mean Corpuscular Hemoglobin Concent 32.6g/dl Red Cell Distribution Width 14.8% Platelet Count 38367^3/UL Mean Platelet Volume 13.3fl Neutrophils % 61.9% Lymphocytes % 25.3% Monocytes % 8.1% Eosinophils % 2.6% Basophils % 0.9% Nucleated Red Blood Cells % 0.0/100WBC Neutrophils # 5.010^3/ul Lymphocytes # 2.010^3/ul Monocytes # 0.710^3/ul Eosinophils # 0.210^3/ul Basophils # 0.110^3/ul Nucleated Red Blood Cells # 0.010^3/ul Sodium Level 146mmol/L Potassium Level 4.3mmol/L Chloride Level 106mmol/L Carbon Dioxide Level 24mmol/L Anion Gap 20 Blood Urea Nitrogen 14mg/dl Creatinine 1.15mg/dl Glucose Level 138mg/dl Calcium Level 9.5mg/dl Total Bilirubin 0.3mg/dl Direct Bilirubin 0.00mg/dl Indirect Bilirubin 0.3mg/dl Aspartate Amino Transf (AST/SGOT) 21IU/L Alanine Aminotransferase (ALT/SGPT) 47IU/L Alkaline Phosphatase 60IU/L Total Protein 7.7g/dl Albumin 4.4g/dl Globulin 3.30g/dl Albumin/Globulin Ratio 1.33 Urine Color [place] Urine Clarity SLIGHTLY CLOUDY Urine pH 5.0 Urine Specific [place] 1.016 Urine Ketones NEGATIVEmg/dL Urine Nitrite POSITIVEmg/dL Urine Bilirubin NEGATIVEmg/dL Urine Urobilinogen 2+mg/dL Urine Leukocyte Esterase TRACELeu/ul Urine Microscopic RBC 103/HPF Urine Microscopic WBC 36/HPF Urine Mucus MANY/HPF Urine Hemoglobin 2+mg/dL Urine Glucose NEGATIVEmg/dL Urine Total Protein 2+mg/dl Current Medications Medications (Trade) Dose Ordered Sig/Jaison Route PRN Reason Start Time Stop Time Status Last Admin Dose Admin Sodium Chloride (NS) 1,000 ml @ 1,000 mls/hr Q1H STAT IV 09/18/16 11:19 09/18/16 12:18 DC 09/18/16 11:32 Hydromorphone HCl (Dilaudid) 1 mg ONCE STAT IV 09/18/16 11:19 09/18/16 11:22 DC 09/18/16 11:32 Ondansetron HCl (Zofran Inj) 4 mg ONCE STAT IV 09/18/16 11:19 09/18/16 11:22 DC 09/18/16 11:32 Ketorolac Tromethamine (Toradol) 30 mg ONCE STAT IV 09/18/16 11:19 09/18/16 11:22 DC 09/18/16 11:32 Hydromorphone HCl (Dilaudid) 1 mg ONCE STAT IV 09/18/16 14:20 09/18/16 14:21 DC 09/18/16 14:37 Procedures/MDM 46-year-old male presents to the emergency department with nephrolithiasis and consistent urinary tract infection presenting with acute persistent left flank pain since this morning. No evidence of sepsis, septic stone, obstruction. Patient has planned surgery with urologist on September 26. Patient was seen here on September 11 and was placed on Cipro, patient states that he is compliant with medications. Urinalysis today is still dirty. There was no urine culture from last visit. I have consulted Dr. Martin, he stated to change the antibiotic from Cipro to Keflex and to discharge the patient. He will see the patient on September 26. In the ED, IV access established. Patient was given 1 L of fluids. Patient pain was controlled with Dilaudid. There was no evidence of leukocytosis in the ED. Patient is afebrile and nontoxic appearing. Patient is appropriate to be discharged home with strict precautions to return to the ED for any worsening signs or symptoms. He understands and agrees plan Departure Diagnosis: Primary Impression: UTI (urinary tract infection) Additional Impression: Nephrolithiasis Condition: Stable ARACELY SELLERS PA-C Sep 18, 2016 13:07
[2016-09-18 13:22] LABS: ADD UMIC YES; UR ASCORBIC ACID NEGATIVE (NEGATIVE); UR BILIRUBIN (Dip) NEGATIVE (NEGATIVE); UR BLOOD (Dip) 2+ mg/dL (NEGATIVE); UR CLARITY SLIGHTLY CLOUDY (CLEAR); UR COLOR AMBER (YELLOW); UR GLUCOSE (Dip) NEGATIVE (NEGATIVE); UR KETONES (Dip) NEGATIVE (NEGATIVE); UR LEUKOCYTE ESTERASE (Dip) TRACE Leu/ul (NEGATIVE); UR MUCUS MANY /HPF (NONE SEEN); UR NITRITE (Dip) POSITIVE (NEGATIVE); UR RBC 103 /HPF (0-5); UR SPECIFIC GRAVITY (Dip) 1.016 (1.003-1.030); UR TOTAL PROTEIN (Dip) 2+ mg/dl (NEGATIVE); UR UROBILINOGEN (Dip) 2+ mg/dL (NEGATIVE)
[2016-09-18 14:30] VITALS: TEMP 98.2
[2016-09-18] MEDS ORDERED: HYDR-906 PO (15:16)
[2016-09-18] MEDS ORDERED: CEPH500C PO (15:16)
[2016-09-18 15:37] VITALS: BP 113/71; PULSE 84; RESP 18
== END 2016-09-18 15:39 | disposition home or self-care (01) ==
LOC: FTE 10:51
DX: N39.0 Urinary tract infection, site not specified (principal); N20.0 Calculus of kidney; E11.9 Type 2 diabetes mellitus without complications; F17.210 Nicotine dependence, cigarettes, uncomplicated
CPT/HCPCS: 36415; 80053; 81001; 85025; 87086; 96374; 96375; 96376; J1170; J1885; J2405; J7030; Z7502

== ENCOUNTER 2016-09-24 23:49 | Emergency (ER) | payer OTHER ==
[~2016-09-24] VITALS: Wt 106.0 kg
[~2016-09-24 23:49] MED LIST changes: +CEPH500C PO
[2016-09-25] MEDS ORDERED: KETOROLAC 60 MG INJ IM STA (01:56)
[2016-09-25 03:07] LABS: ADD UMIC YES; UR ASCORBIC ACID NEGATIVE (NEGATIVE); UR BILIRUBIN (Dip) NEGATIVE (NEGATIVE); UR BLOOD (Dip) 3+ mg/dL (NEGATIVE); UR CLARITY SLIGHTLY CLOUDY (CLEAR); UR COLOR YELLOW (YELLOW); UR GLUCOSE (Dip) NEGATIVE (NEGATIVE); UR KETONES (Dip) NEGATIVE (NEGATIVE); UR LEUKOCYTE ESTERASE (Dip) 1+ Leu/ul (NEGATIVE); UR MUCUS FEW /HPF (NONE SEEN); UR NITRITE (Dip) NEGATIVE (NEGATIVE); UR RBC 80 /HPF (0-5); UR SPECIFIC GRAVITY (Dip) 1.016 (1.003-1.030); UR TOTAL PROTEIN (Dip) 1+ mg/dl (NEGATIVE); UR UROBILINOGEN (Dip) NEGATIVE (NEGATIVE)
--- NOTE | 2016-09-25 03:39 | RADRPT ---
PROCEDURE: ULTRASOUND TESTICULAR CLINICAL INDICATION: 46-year-old male with testicular pain. TECHNIQUE: Multiple sonographic images of the scrotal region were obtained utilizing a linear arra y transducer with grayscale and color-flow and a Doppler imaging. The images were reviewed on a high -resolution PACS workstation. COMPARISON: None. FINDINGS: The right testicle is well visualized and has a normal echotexture. No focal areas of abnormal echog enicity are visualized. The right testicle measures 4.6 x 2.3 x 3.5 cm. There is normal color-flow. The right epididymis is visualized and measures approximately measures 9 x 8 mm. There is normal col or-flow. The left testicle is well visualized and has a normal echotexture. No focal areas abnormal echogenic ity are visualized. The left testicle measures 4.7 x 2.5 x 3.3 cm. There is normal color-flow. The l eft epididymis is visualized and measures approximately measures 12 x 9 mm. There is normal color-fl ow. IMPRESSION: Unremarkable testicular ultrasound. .Jayjay Mccurdy MD, MD Date Time Electronically viewed and signed by .Jayjay Mccurdy MD, on 09/25/2016 03:39 .M/
--- NOTE | 2016-09-25 03:41 | RADRPT ---
PROCEDURE: ULTRASOUND RETROPERITONEUM CLINICAL INDICATION: 46-year-old male with pelvic pain. TECHNIQUE: Multiple sonographic images of the retroperitoneum were obtained. The images were revi ewed on a PACS workstation. COMPARISON: None. FINDINGS: The kidneys are well visualized. The right kidney measures 11.1 cm in maximal length. The left kidne y measures 12.9 cm in maximal length. There are no focal areas of abnormal echogenicity. There is no evidence for obstructive uropathy. The bladder has a small volume of urine. There is a shadowing echogenic focus within the bladder suggestive of a bladder stone. IMPRESSION: 1. No sonographic evidence for obstructive uropathy. 2. Questionable bladder stone. .Jayjay Mccurdy MD, Date Time Electronically viewed and signed by .Jayjay Mccurdy MD, on 09/25/2016 03:41 .M/
[2016-09-25] MEDS ORDERED: IBUP800T25 PO (04:02)
[2016-09-25] MEDS ORDERED: CIPR500T4 PO (04:02)
[2016-09-25 04:12] VITALS: BP 127/78; PULSE 81; RESP 16; TEMP 98.3
--- NOTE | 2016-09-25 04:12 | ERD ---
ER Documentation Chief Complaint Date/Time DATE: 09/25/16 TIME: 04:11 Chief Complaint Left flank pain. Had surgery on Thursday. pain and burning in the palms HPI 46-year-old male with history of left kidney stone is complaining of suprapubic pain 1 day. Patient stated the pain is sharp, comes and goes, lasting about 2- 3 hours each. He is able to produce urine, last urination was several minutes ago. He had a stent placed on 09/01/2016, he has surgery scheduled in 2 days. Patient is given 10 day course of Keflex for prophylactic antibiotic before the surgery. He has been on Keflex for 7 days. He took Fabius at home for pain, had not helped. Denies fever or chills. Denies flank pain. ROS All systems reviewed and are negative except as per history of present illness. Medications Home Meds Active Scripts Ciprofloxacin Hcl* (Ciprofloxacin Hcl*) 500 Mg Tablet, 500 MG PO BID for 10 Days , TAB Prov:SUNITA YAN NP 09/25/16 Ibuprofen* (Motrin*) 800 Mg Tab, 800 MG PO Q6H Y for PAIN AND OR ELEVATED TEMP, #30 TAB Prov:SUNITA YAN NP 09/25/16 Hydrocodone/Acetaminophen (Fabius 5-325 Tablet) 1 Each Tablet, 1 EACH PO Q6 Y for PAIN, #20 TAB Prov:ARACELY SELLERS PA-C 09/18/16 Cephalexin* (Cephalexin*) 500 Mg Capsule, 500 MG PO TID, #42 CAP Prov:ARACELY SELLERS PA-C 09/18/16 Phenazopyridine Hcl* (Pyridium*) 200 Mg Tab, 200 MG PO TID Y for URINARY PAIN, # 6 TAB Prov:ESTEPHANIA WHEELER NP 09/11/16 Ciprofloxacin Hcl* (Ciprofloxacin Hcl*) 500 Mg Tablet, 500 MG PO BID for 10 Days , TAB Prov:ESTEPHANIA WHEELER NP 09/11/16 Hydrocortisone Acetate (Anusol-Hc) 25 Mg Supp.rect, 1 SUPP WI BID Y for HEMORROID PAIN/ITCHING, #12 SUPP.RECT Prov:RUFINO RIZZO PA-C 08/18/16 Hydrocodone/Acetaminophen ([place] 5-325 Tablet) 1 Each Tablet, 1 TAB PO Q6H Y for PAIN, #14 TAB Prov:RUFINO RIZZO Vy CRANDALL 08/18/16 Reported Medications Tamsulosin Hcl* (Flomax*) 0.4 Mg Cap.er.24h, 0.4 MG PO BID, CAP 08/31/16 Omeprazole* (Omeprazole*) 40 Mg Capsule.dr, 40 MG PO DAILY, #30 CAP 08/28/16 Metformin* (Glucophage*) 500 Mg Tab, 500 MG PO WITH BREAKFAST DINNE, #30 TAB 08/28/16 Acetaminophen* (Acetaminophen*) 500 MG Extra Strength Tablet, 500 MG PO Q4H Y for PAIN AND OR ELEVATED TEMP, TAB 08/28/16 Allergies Allergies: Coded Allergies: No Known Allergy (Unverified , 09/18/16) PMhx/Soc History of Surgery: No Anesthesia Reaction: No Hx Neurological Disorder: No Hx Respiratory Disorders: No Hx Cardiac Disorders: No Hx Psychiatric Problems: No Hx Miscellaneous Medical Probl: Yes (DM, kidney stones) Hx Alcohol Use: Yes Hx Substance Use: No Hx Tobacco Use: Yes (X1 PACK/DAY) Smoking Status: Current every day smoker Physical Exam Vitals Vital Signs Date Time Temp Pulse Resp B/P Pulse Ox O2 Delivery O2 Flow Rate FiO2 09/24/16 23:56 97.7 114 24 134/81 95 Physical Exam General: Well-developed, well-nourished, conscious and coherent, in no distress Skin: Warm and dry without rash, good texture and turgor Head: Normocephalic without evidence of trauma Eyes: Sclera and conjunctivae normal; pupils equal, round, and reactive to light; extraocular movements are intact Chest: Normal AP diameter. Good expansion without retractions. Nontender. Lungs are clear to auscultate bilaterally with good tidal volume Heart: Regular rate and rhythm. No murmur, rub, or gallops heard Abdomen: Soft and nontender without masses, guarding, or rebound. Bowel sounds are active. No hepatosplenomegaly Back: Without spinal or CVA tenderness Pelvis: Suprapubic tenderness. : Circumsized male. Penis normal, no penile discharge. Normal scrotum, no mass. Bilateral scrotal tenderness. No inguinal hernia. Extremities: Full range of motion. Good strength bilaterally. No clubbing, cyanosis, or edema. Peripheral pulses are intact. Sensation intact Neuro: Alert and oriented 4, GCS 15. Cranial nerves grossly intact. Motor and sensory exams nonfocal. Moves all extremities. Speech clear. Gait normal Results 24 hrs Laboratory Tests Test 09/25/16 02:00 Urine Color YELLOW Urine Clarity SLIGHTLY CLOUDY Urine pH 5.0 Urine Specific [place] 1.016 Urine Ketones NEGATIVEmg/dL Urine Nitrite NEGATIVEmg/dL Urine Bilirubin NEGATIVEmg/dL Urine Urobilinogen NEGATIVEmg/dL Urine Leukocyte Esterase 1+Preeti/ul Urine Microscopic RBC 80/HPF Urine Microscopic WBC 17/HPF Urine Mucus FEW/HPF Urine Hemoglobin 3+mg/dL Urine Glucose NEGATIVEmg/dL Urine Total Protein 1+mg/dl Current Medications Medications (Trade) Dose Ordered Sig/Jaison Route PRN Reason Start Time Stop Time Status Last Admin Dose Admin Ketorolac Tromethamine (Toradol) 60 mg ONCE STAT IM 09/25/16 01:56 09/25/16 01:58 DC 09/25/16 02:08 PROCEDURE: ULTRASOUND RETROPERITONEUM CLINICAL INDICATION: 46-year-old male with pelvic pain. TECHNIQUE: Multiple sonographic images of the retroperitoneum were obtained. The images were reviewed on a PACS workstation. COMPARISON: None. FINDINGS: The kidneys are well visualized. The right kidney measures 11.1 cm in maximal length. The left kidney measures 12.9 cm in maximal length. There are no focal areas of abnormal echogenicity. There is no evidence for obstructive uropathy. The bladder has a small volume of urine. There is a shadowing echogenic focus within the bladder suggestive of a bladder stone. IMPRESSION: 1. No sonographic evidence for obstructive uropathy. 2. Questionable bladder stone. .Jayjay Mccurdy MD, MD Date Time Electronically viewed and signed by .Jayjay Mccurdy MD, MD on 09/25/2016 03:41 .M/ CC: SUNITA YAN NP PROCEDURE: ULTRASOUND TESTICULAR CLINICAL INDICATION: 46-year-old male with testicular pain. TECHNIQUE: Multiple sonographic images of the scrotal region were obtained utilizing a linear array transducer with grayscale and color-flow and a Doppler imaging. The images were reviewed on a high-resolution PACS workstation. COMPARISON: None. FINDINGS: The right testicle is well visualized and has a normal echotexture. No focal areas of abnormal echogenicity are visualized. The right testicle measures 4.6 x 2.3 x 3.5 cm. There is normal color-flow. The right epididymis is visualized and measures approximately measures 9 x 8 mm. There is normal color-flow. The left testicle is well visualized and has a normal echotexture. No focal areas abnormal echogenicity are visualized. The left testicle measures 4.7 x 2.5 x 3.3 cm. There is normal color-flow. The left epididymis is visualized and measures approximately measures 12 x 9 mm. There is normal color-flow. IMPRESSION: Unremarkable testicular ultrasound. 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 Renal ultrasound showed no hydronephrosis, questionable stone in the bladder. Scrotal ultrasound is negative. I doubt epididymitis or orchitis. Patient had to CT scans in the past 30 days, I do not feel he needs another CT today. UA show 1+ leukocyte, negative nitrite, 3+ blood. Patient has a urinary tract infection in addition to possible stone in the bladder. Patient is given prescription of Cipro for UTI. He has surgery appointment scheduled in 2 days, advised patient to follow-up as scheduled. Patient appears well, stable for discharge and outpatient management. Medical decision making shared with patient and family. Education provided to patient and family. Patient and family expressed understanding of the plan. Medications on discharge: Cipro, ibuprofen. Follow-up: Primary care provider in 2-3 days or return to ED if worse. The case was reviewed and discussed with Dr. Matthews, who agrees with the plan of care including labs, treatment, and advanced imaging as appropriate. Disclaimer: Inadvertent spelling and grammatical errors are likely due to EHR/ dictation software use and do not reflect on the overall quality of patient care. Also, please note that the electronic time recorded on this note does not necessarily reflect the actual time of the patient encounter. Departure Diagnosis: Primary Impression: Urolithiasis Urinary calculus location: bladder Qualified Code: N21.0 - Calculus of urinary bladder Additional Impression: UTI (urinary tract infection) Urinary tract infection type: acute cystitis Hematuria presence: with hematuria Qualified Code: N30.01 - Acute cystitis with hematuria Condition: Stable Patient Instructions: Understanding Urinary Tract Infections (UTIs), Kidney Stone, Passed Referrals: [facility] YOU HAVE RECEIVED A MEDICAL SCREENING EXAM AND THE RESULTS INDICATE THAT YOU DO NOT HAVE A CONDITION THAT REQUIRES URGENT TREATMENT IN THE EMERGENCY DEPARTMENT. FURTHER EVALUATION AND TREATMENT OF YOUR CONDITION CAN WAIT UNTIL YOU ARE SEEN IN YOUR DOCTORS OFFICE WITHIN THE NEXT 1-2 DAYS. IT IS YOUR RESPONSIBILITY TO MAKE AN APPOINTMENT FOR FOLOW-UP CARE. IF YOU HAVE A PRIMARY DOCTOR --you should call your primary doctor and schedule an appointment IF YOU DO NOT HAVE A PRIMARY DOCTOR YOU CAN CALL OUR PHYSICIAN REFERRAL HOTLINE AT IF YOU CAN NOT AFFORD TO SEE A PHYSICIAN YOU CAN CHOSE FROM THE FOLLOWING [facility] [address] [facility]. [facility] [address] [facility]. [facility] [address] [facility] [facility] [address] [facility]. [facility] [address] [facility]. [facility]. [address] Additional Instructions: Call your primary care doctor TOMORROW for an appointment during the next 2-3 days.See the doctor sooner or return here if your condition worsens before your appointment time. SUNITA YAN NP Sep 25, 2016 04:12
== END 2016-09-25 04:15 | disposition home or self-care (01) ==
LOC: FTE 23:49
DX: N21.0 Calculus in bladder (principal); N30.01 Acute cystitis with hematuria; E11.9 Type 2 diabetes mellitus without complications; F17.210 Nicotine dependence, cigarettes, uncomplicated; Z79.84 Long term (current) use of oral hypoglycemic drugs
CPT/HCPCS: 76775; 76870; 81001; 87086; J1885; 96372

== ENCOUNTER 2016-10-15 03:33 | Emergency (ER) | payer OTHER ==
[~2016-10-15] VITALS: Ht 177.8 cm; Wt 105.0 kg
[~2016-10-15 03:33] MED LIST changes: +IBUP800T25 PO
[2016-10-15 03:36] VITALS: Ht 177.8 cm; Wt 105.0 kg
[2016-10-15] MEDS ORDERED: morphine 4 MG/ML VIAL IV ONE (04:28)
[2016-10-15] MEDS ORDERED: SOD CHLORIDE 0.9% 1,000 ML IV ONE (04:28)
[2016-10-15] MEDS ORDERED: ONDANSETRON 4 MG INJ IV ONE (04:29)
--- NOTE | 2016-10-15 05:02 | RADRPT ---
PROCEDURE: CT Abdomen and pelvis without contrast. CLINICAL INDICATION: Abdominal pain. TECHNIQUE: CT scan of the abdomen and pelvis was performed on a multi-detector high-resolution CT scanner. Contiguous axial images were obtained from the lung bases to the ischial tuberosities wit hout intravenous contrast. Coronal and sagittal reformatted images were also obtained. Images were reviewed on the PACS workstation. One or more of the following dose reduction techniques were used: - Automated exposure control. - Adjustment of the mA and/or kV according to patient size. - Use of iterative reconstruction technique. Exam CTD/vol = 19.07 mGy. Total exam DLP = 1313.31 mGy-cm. COMPARISON: 09/11/2016. FINDINGS: Evaluation of the lung bases demonstrates mild bibasilar atelectasis. Abdomen: The liver is normal in size and diffusely low in attenuation consistent with fatty infiltr ation. There is no focal mass or dilatation of the biliary tree. The gallbladder is not distended. The spleen, pancreas and bilateral adrenal glands are within normal limits. Bilateral kidneys are normal in size with no contour deforming mass identified. There are multiple calculi within the lo wer pole of the left kidney measuring up to 3 mm. There is a calculus within the left renal pelvis measuring 25 x 11 mm. There is mild left-sided hydronephrosis with mild perinephric stranding. The re is no retroperitoneal adenopathy. The abdominal aorta is of normal caliber. There is a tiny umbilical hernia containing fat. There is no bowel obstruction or free air. A norm al appendix is identified. There is no diverticulosis or diverticulitis. There is no ascites. Pelvis: The bladder is unremarkable. The prostate and seminal vesicles are within normal limits. There are prominent reactive inguinal lymph nodes bilaterally with the largest on the left measuring 3.8 x 2.0 cm. There is no significant pelvic free fluid. Evaluation of the osseous structures demonstrates no suspicious lytic or blastic lesion. IMPRESSION: Left renal pelvis 25 x 11 mm calculus with mild left-sided hydronephrosis, increased compared with t he prior study. Left renal calculi. Fatty infiltration of the liver. Tiny umbilical hernia containing fat. Mild bibasilar atelectasis. .Fermin Baron MD, MD Date Time Electronically viewed and signed by .Fermin Baron MD, MD on 10/15/2016 05:02 .T/
[2016-10-15 05:43] LABS: ADD UMIC YES; UR ASCORBIC ACID NEGATIVE (NEGATIVE); UR BILIRUBIN (Dip) NEGATIVE (NEGATIVE); UR BLOOD (Dip) 2+ mg/dL (NEGATIVE); UR CLARITY CLEAR (CLEAR); UR COLOR STRAW (YELLOW); UR GLUCOSE (Dip) NEGATIVE (NEGATIVE); UR KETONES (Dip) NEGATIVE (NEGATIVE); UR LEUKOCYTE ESTERASE (Dip) NEGATIVE Leu/ul (NEGATIVE); UR NITRITE (Dip) NEGATIVE (NEGATIVE); UR RBC 1 /HPF (0-5); UR SPECIFIC GRAVITY (Dip) 1.008 (1.003-1.030); UR TOTAL PROTEIN (Dip) NEGATIVE (NEGATIVE); UR UROBILINOGEN (Dip) NEGATIVE (NEGATIVE)
--- NOTE | 2016-10-15 05:47 | ERD ---
ER Documentation Chief Complaint Date/Time DATE: 10/15/16 TIME: 05:45 Chief Complaint left flank pain x 2 days HPI 46-year-old male with left flank pain for 2 days. History of multiple kidney stones. Pain started again yesterday. No fevers no chills. Mild nausea. Nonbilious vomiting. Pain is mild to moderate intensity. No other current complaints. ROS All systems reviewed and are negative except as per history of present illness. Medications Home Meds Active Scripts Ciprofloxacin Hcl* (Ciprofloxacin Hcl*) 500 Mg Tablet, 500 MG PO BID for 10 Days , TAB Prov:SUNITA YAN NP 09/25/16 Ibuprofen* (Motrin*) 800 Mg Tab, 800 MG PO Q6H Y for PAIN AND OR ELEVATED TEMP, #30 TAB Prov:SUNITA YAN NP 09/25/16 Hydrocodone/Acetaminophen ([place] 5-325 Tablet) 1 Each Tablet, 1 EACH PO Q6 Y for PAIN, #20 TAB Prov:ARACELY SELLERS PA-C 09/18/16 Cephalexin* (Cephalexin*) 500 Mg Capsule, 500 MG PO TID, #42 CAP Prov:ARACELY SELLERS PA-C 09/18/16 Phenazopyridine Hcl* (Pyridium*) 200 Mg Tab, 200 MG PO TID Y for URINARY PAIN, # 6 TAB Prov:ESTEPHANIA WHEELER NP 09/11/16 Ciprofloxacin Hcl* (Ciprofloxacin Hcl*) 500 Mg Tablet, 500 MG PO BID for 10 Days , TAB Prov:ESTEPHANIA WHEELER NP 09/11/16 Hydrocortisone Acetate (Anusol-Hc) 25 Mg Supp.rect, 1 SUPP VA BID Y for HEMORROID PAIN/ITCHING, #12 SUPP.RECT Prov:RUFINO RIZZO PA-C 08/18/16 Hydrocodone/Acetaminophen ([place] 5-325 Tablet) 1 Each Tablet, 1 TAB PO Q6H Y for PAIN, #14 TAB Prov:RUFINO RIZZO PA-C 08/18/16 Reported Medications Tamsulosin Hcl* (Flomax*) 0.4 Mg Cap.er.24h, 0.4 MG PO BID, CAP 08/31/16 Omeprazole* (Omeprazole*) 40 Mg Capsule.dr, 40 MG PO DAILY, #30 CAP 08/28/16 Metformin* (Glucophage*) 500 Mg Tab, 500 MG PO WITH BREAKFAST DINNE, #30 TAB 08/28/16 Acetaminophen* (Acetaminophen*) 500 MG Extra Strength Tablet, 500 MG PO Q4H Y for PAIN AND OR ELEVATED TEMP, TAB 08/28/16 Allergies Allergies: Coded Allergies: No Known Allergy (Unverified , 09/18/16) PMhx/Soc History of Surgery: Yes (kidney stents placed 09/19) Anesthesia Reaction: No Hx Neurological Disorder: No Hx Respiratory Disorders: No Hx Cardiac Disorders: No Hx Psychiatric Problems: No Hx Miscellaneous Medical Probl: Yes (DM, kidney stones) Hx Alcohol Use: Yes (occasionally) Hx Substance Use: No Hx Tobacco Use: Yes (X1 PACK/DAY) Physical Exam Vitals Vital Signs Date Time Temp Pulse Resp B/P Pulse Ox O2 Delivery O2 Flow Rate FiO2 10/15/16 03:36 97.8 105 20 151/98 98 Physical Exam Const: [] Head: Atraumatic Eyes: Normal Conjunctiva ENT: Normal External Ears, Nose and Mouth. Neck: Full range of motion..~ No meningismus. Resp: Clear to auscultation bilaterally Cardio: Regular rate and rhythm, no murmurs Abd: Soft, non tender, non distended. Normal bowel sounds Skin: No petechiae or rashes Back: No midline or flank tenderness Ext: No cyanosis, or edema Neur: Awake and alert Psych: Normal Mood and Affect Results 24 hrs Laboratory Tests Test 10/15/16 04:45 Urine Color STRAW Urine Clarity CLEAR Urine pH 5.0 Urine Specific [place] 1.008 Urine Ketones NEGATIVEmg/dL Urine Nitrite NEGATIVEmg/dL Urine Bilirubin NEGATIVEmg/dL Urine Urobilinogen NEGATIVEmg/dL Urine Leukocyte Esterase NEGATIVELeu/ul Urine Microscopic RBC 1/HPF Urine Microscopic WBC 1/HPF Urine Hemoglobin 2+mg/dL Urine Glucose NEGATIVEmg/dL Urine Total Protein NEGATIVEmg/dl Current Medications Medications (Trade) Dose Ordered Sig/Jaison Route PRN Reason Start Time Stop Time Status Last Admin Dose Admin Sodium Chloride (NS) 1,000 ml @ 1,000 mls/hr Q1H ONCE IV 10/15/16 04:28 10/15/16 05:27 DC 10/15/16 04:40 Morphine Sulfate (morphine) 4 mg ONCE ONCE IV 10/15/16 04:28 10/15/16 04:29 DC 10/15/16 04:40 Ondansetron HCl (Zofran Inj) 4 mg ONCE ONCE IV 10/15/16 04:29 10/15/16 04:30 DC 10/15/16 04:40 Procedures/MDM Medical decision-makin-year-old male here with reactivation of struvite stone kidney pain. At this point is stable for outpatient management. Patient given outpatient urology referral. Given [place] and Zofran for pain control. Started on ciprofloxacin Departure Diagnosis: Primary Impression: Flank pain Condition: Stable GREGORY SIMS Oct 15, 2016 05:46
[2016-10-15] MEDS ORDERED: HYDR-902 PO (05:48)
[2016-10-15] MEDS ORDERED: ONDA4TAB14 PO (05:48)
[2016-10-15 05:57] LABS: ABNORMAL IP MESSAGE 1; BASOPHIL # 0.1 10^3/ul (0.0-0.1); BASOPHILS % 0.6 % (0.0-2.0); EOSINOPHILS # 0.1 10^3/ul (0.0-0.5); EOSINOPHILS % 1.5 % (0.0-7.0); HEMATOCRIT 35.3 % (42.0-52.0); LYMPHOCYTES % 23.2 % (15.0-51.0); MEAN CORPUSCULAR HEMOGLOBIN 25.2 pg (29.0-33.0); MEAN CORPUSCULAR HGB CONC 31.2 g/dl (32.0-37.0); MEAN PLATELET VOLUME 13.6 fl (7.4-10.4); MONOCYTE # 0.7 10^3/ul (0.3-0.9); MONOCYTES % 8.2 % (0.0-11.0); NEUTROPHILS % 65.4 % (39.0-77.0); PLATELET COUNT 154 10^3/UL (140-415); POSITIVE DIFF @See below; RED BLOOD COUNT 4.36 10^6/ul (4.70-6.10); RED CELL DISTRIBUTION WIDTH 15.9 % (11.5-14.5); WHITE BLOOD COUNT 8.7 10^3/ul (4.8-10.8)
[2016-10-15 06:28] LABS: ALBUMIN 3.6 g/dl (3.3-4.9); ALBUMIN/GLOBULIN RATIO 1.12; BILIRUBIN,INDIRECT 0.1 mg/dl (0-1.1); BILIRUBIN,TOTAL 0.1 mg/dl (0.2-1.3); CREATININE 1.04 mg/dl (0.61-1.24); POTASSIUM 4.2 mmol/L (3.5-5.1); TOTAL PROTEIN 6.8 g/dl (6.1-8.1)
[2016-10-15 06:35] VITALS: BP 111/75; PULSE 88; RESP 18; TEMP 97.3
== END 2016-10-15 06:50 | disposition home or self-care (01) ==
LOC: E/R 03:33
DX: R10.9 Unspecified abdominal pain (principal); R11.2 Nausea with vomiting, unspecified; E11.9 Type 2 diabetes mellitus without complications; F17.210 Nicotine dependence, cigarettes, uncomplicated; Z79.84 Long term (current) use of oral hypoglycemic drugs
CPT/HCPCS: 36415; 74176; 80053; 81001; 83690; 85025; 96374; 96375; J2270; J2405; J7030; Z7502

== ENCOUNTER 2016-11-14 10:24 | Emergency (ER) | payer OTHER ==
[~2016-11-14] VITALS: Wt 107.0 kg
[~2016-11-14 10:24] MED LIST changes: -CIPR500T4 PO; +HYDR-902 PO; +ONDA4TAB14 PO; -PHEN-538 PO; -TAMS-14 PO
[2016-11-14] MEDS ORDERED: KETOROLAC 30 MG INJ IV STA (10:46)
[2016-11-14] MEDS ORDERED: ONDANSETRON 4 MG INJ IV STA (10:46)
[2016-11-14] MEDS ORDERED: SOD CHLORIDE 0.9% 1,000 ML IV STA (10:46)
[2016-11-14] MEDS ORDERED: HYDROmorphONE 2 MG/ML SYG IV STA (11:17)
[2016-11-14] MEDS ORDERED: HYDROmorphONE 1 MG/ML SYG IV STA (11:19)
[2016-11-14 11:26] LABS: BASOPHIL # 0.1 10^3/ul (0.0-0.1); BASOPHILS % 0.7 % (0.0-2.0); EOSINOPHILS # 0.1 10^3/ul (0.0-0.5); EOSINOPHILS % 1.7 % (0.0-7.0); HEMATOCRIT 37.9 % (42.0-52.0); HEMOGLOBIN 11.7 g/dl (14.0-18.0); LYMPHOCYTES # 1.7 10^3/ul (0.8-2.9); LYMPHOCYTES % 20.6 % (15.0-51.0); MEAN CORPUSCULAR HEMOGLOBIN 24.2 pg (29.0-33.0); MEAN CORPUSCULAR HGB CONC 30.9 g/dl (32.0-37.0); MEAN CORPUSCULAR VOLUME 78.3 fl (82.0-101.0); MEAN PLATELET VOLUME 12.7 fl (7.4-10.4); MONOCYTE # 0.7 10^3/ul (0.3-0.9); MONOCYTES % 8.2 % (0.0-11.0); NEUTROPHIL # 5.4 10^3/ul (1.6-7.5); NEUTROPHILS % 67.7 % (39.0-77.0); PLATELET COUNT 178 10^3/UL (140-415); RED BLOOD COUNT 4.84 10^6/ul (4.70-6.10); RED CELL DISTRIBUTION WIDTH 15.9 % (11.5-14.5)
[2016-11-14 11:31] LABS: ADD UMIC YES; UR ASCORBIC ACID NEGATIVE (NEGATIVE); UR BILIRUBIN (Dip) NEGATIVE (NEGATIVE); UR BLOOD (Dip) 2+ mg/dL (NEGATIVE); UR CLARITY CLEAR (CLEAR); UR COLOR YELLOW (YELLOW); UR GLUCOSE (Dip) NEGATIVE (NEGATIVE); UR KETONES (Dip) NEGATIVE (NEGATIVE); UR LEUKOCYTE ESTERASE (Dip) 1+ Leu/ul (NEGATIVE); UR NITRITE (Dip) NEGATIVE (NEGATIVE); UR RBC 1 /HPF (0-5); UR SPECIFIC GRAVITY (Dip) 1.014 (1.003-1.030); UR TOTAL PROTEIN (Dip) NEGATIVE (NEGATIVE); UR UROBILINOGEN (Dip) NEGATIVE (NEGATIVE)
[2016-11-14 11:52] LABS: ALBUMIN/GLOBULIN RATIO 1.29; BILIRUBIN,INDIRECT 0.1 mg/dl (0-1.1); BILIRUBIN,TOTAL 0.1 mg/dl (0.2-1.3); CALCIUM 9.4 mg/dl (8.4-10.2); CREATININE 1.13 mg/dl (0.61-1.24); POTASSIUM 4.2 mmol/L (3.5-5.1); TOTAL PROTEIN 7.1 g/dl (6.1-8.1)
[2016-11-14 13:06] VITALS: BP 111/80; PULSE 81; RESP 18; TEMP 98
[2016-11-14] MEDS ORDERED: CIPR500T4 PO (13:58)
[2016-11-14] MEDS ORDERED: OXYC-279 PO (13:58)
[2016-11-14] MEDS ORDERED: TAMS-14 PO (13:58)
--- NOTE | 2016-11-14 14:18 | ERD ---
ER Documentation Chief Complaint Date/Time DATE: 11/14/16 TIME: 14:13 Chief Complaint L FLANK PAIN X 1MONTH HPI 46-year-old male complaining of left flank pain. Patient states he has had a long history of kidney pain. He has been seen by Dr. Martin and had stent placement and lithotripsy on September 26. Patient states he is taking pain medication but pain has continued. He has been been unable to follow-up with Dr. Martin as there is a complication with insurance. Patient has continued pain. Denies fever. Denies vomiting. Normal bowel movements. Medical problems: Kidney stones, diabetes mellitus NKDA Surgical history: Denies ROS All systems reviewed and are negative except as per history of present illness. Medications Home Meds Active Scripts Tamsulosin Hcl* (Flomax*) 0.4 Mg Cap.er.24h, 0.4 MG PO BID, #30 CAP Prov:DOUGIE KATE PA-C 11/14/16 Oxycodone HCl/Acetaminophen (Percocet 5-325 mg Tablet) 1 Each Tablet, 1 EACH PO BID, #15 TAB Prov:DOUGIE KATE PA-C 11/14/16 Ciprofloxacin Hcl* (Ciprofloxacin Hcl*) 500 Mg Tablet, 500 MG PO BID for 7 Days , TAB Prov:DOUGIE KATE PA-C 11/14/16 Ondansetron (Ondansetron Odt) 4 Mg Tab.rapdis, 4 MG PO Q6H Y for NAUSEA AND/OR VOMITING, #10 TAB Prov:GREGORY SIMS 10/15/16 Hydrocodone/Acetaminophen ([place] 10-325 Tablet) 1 Each Tablet, 1 TAB PO Q6H Y for PAIN, #20 TAB Prov:GREGORY SIMS S. 10/15/16 Ibuprofen* (Motrin*) 800 Mg Tab, 800 MG PO Q6H Y for PAIN AND OR ELEVATED TEMP, #30 TAB Prov:SUNITA YAN NP 09/25/16 Hydrocodone/Acetaminophen ([place] 5-325 Tablet) 1 Each Tablet, 1 EACH PO Q6 Y for PAIN, #20 TAB Prov:ARACELY SELLERS PA-C 09/18/16 Cephalexin* (Cephalexin*) 500 Mg Capsule, 500 MG PO TID, #42 CAP Prov:ANUSHKAARACELY RANDOLPH Timbo CRANDALL 09/18/16 Hydrocortisone Acetate (Anusol-Hc) 25 Mg Supp.rect, 1 SUPP [place] BID Y for HEMORROID PAIN/ITCHING, #12 SUPP.RECT Prov:RUFINO RIZZO PA-C 08/18/16 Hydrocodone/Acetaminophen ([place] 5-325 Tablet) 1 Each Tablet, 1 TAB PO Q6H Y for PAIN, #14 TAB Prov:RUFINO RIZZO PA-C 08/18/16 Reported Medications Omeprazole* (Omeprazole*) 40 Mg Capsule.dr, 40 MG PO DAILY, #30 CAP 08/28/16 Metformin* (Glucophage*) 500 Mg Tab, 500 MG PO WITH BREAKFAST DINNE, #30 TAB 08/28/16 Acetaminophen* (Acetaminophen*) 500 MG Extra Strength Tablet, 500 MG PO Q4H Y for PAIN AND OR ELEVATED TEMP, TAB 08/28/16 Allergies Allergies: Coded Allergies: No Known Allergy (Unverified , 10/15/16) PMhx/Soc History of Surgery: Yes (Kidney Stents Placed/Removal) Anesthesia Reaction: No Hx Neurological Disorder: No Hx Respiratory Disorders: No Hx Cardiac Disorders: No Hx Psychiatric Problems: No Hx Miscellaneous Medical Probl: Yes (DM,Nephrolithiasis) Hx Alcohol Use: No Hx Substance Use: No Hx Tobacco Use: Yes (1 pack/day) Smoking Status: Current some day smoker Physical Exam Vitals Vital Signs Date Time Temp Pulse Resp B/P Pulse Ox O2 Delivery O2 Flow Rate FiO2 11/14/16 13:06 98.0 81 18 111/80 96 Room Air 11/14/16 10:29 99.0 108 18 141/70 99 Physical Exam GENERAL: The patient is well-appearing, well-nourished, in no acute distress CHEST: Clear to auscultation bilaterally. There are no rales, wheezes or rhonchi. HEART: Regular rate and rhythm. No murmurs, clicks, rubs or gallops. No S3 or S4. ABDOMEN: Soft nondistended. Normal bowel sounds. Tender to palpation over the left flank. No organomegaly. BACK: No midline or flank tenderness. Result Diagram: 11/14/16 1100 11/14/16 1100 Results 24 hrs Laboratory Tests Test 11/14/16 10:55 11/14/16 11:00 Urine Color YELLOW Urine Clarity CLEAR Urine pH 5.0 Urine Specific [place] 1.014 Urine Ketones NEGATIVEmg/dL Urine Nitrite NEGATIVEmg/dL Urine Bilirubin NEGATIVEmg/dL Urine Urobilinogen NEGATIVEmg/dL Urine Leukocyte Esterase 1+Preeti/ul Urine Microscopic RBC 1/HPF Urine Microscopic WBC 8/HPF Urine Hemoglobin 2+mg/dL Urine Glucose NEGATIVEmg/dL Urine Total Protein NEGATIVEmg/dl White Blood Count 8.010^3/ul Red Blood Count 4.8410^6/ul Hemoglobin 11.7g/dl Hematocrit 37.9% Mean Corpuscular Volume 78.3fl Mean Corpuscular Hemoglobin 24.2pg Mean Corpuscular Hemoglobin Concent 30.9g/dl Red Cell Distribution Width 15.9% Platelet Count 82212^3/UL Mean Platelet Volume 12.7fl Neutrophils % 67.7% Lymphocytes % 20.6% Monocytes % 8.2% Eosinophils % 1.7% Basophils % 0.7% Nucleated Red Blood Cells % 0.0/100WBC Neutrophils # 5.410^3/ul Lymphocytes # 1.710^3/ul Monocytes # 0.710^3/ul Eosinophils # 0.110^3/ul Basophils # 0.110^3/ul Nucleated Red Blood Cells # 0.010^3/ul Sodium Level 141mmol/L Potassium Level 4.2mmol/L Chloride Level 107mmol/L Carbon Dioxide Level 26mmol/L Anion Gap 12 Blood Urea Nitrogen 17mg/dl Creatinine 1.13mg/dl Glucose Level 139mg/dl Calcium Level 9.4mg/dl Total Bilirubin 0.1mg/dl Direct Bilirubin 0.00mg/dl Indirect Bilirubin 0.1mg/dl Aspartate Amino Transf (AST/SGOT) 19IU/L Alanine Aminotransferase (ALT/SGPT) 32IU/L Alkaline Phosphatase 61IU/L Total Protein 7.1g/dl Albumin 4.0g/dl Globulin 3.10g/dl Albumin/Globulin Ratio 1.29 Lipase 64U/L Current Medications Medications (Trade) Dose Ordered Sig/Jaison Route PRN Reason Start Time Stop Time Status Last Admin Dose Admin Sodium Chloride (NS) 1,000 ml @ 1,000 mls/hr Q1H STAT IV 11/14/16 10:46 11/14/16 11:45 DC 11/14/16 11:15 Ondansetron HCl (Zofran Inj) 4 mg ONCE STAT IV 11/14/16 10:46 11/14/16 10:47 DC 11/14/16 11:09 Ketorolac Tromethamine (Toradol) 30 mg ONCE STAT IV 11/14/16 10:46 11/14/16 10:47 DC 11/14/16 11:09 Hydromorphone HCl (Dilaudid) 2 mg ONCE STAT IV 11/14/16 11:17 11/14/16 11:20 DC Hydromorphone HCl (Dilaudid) 1 mg ONCE STAT IV 11/14/16 11:19 11/14/16 11:20 DC 11/14/16 11:23 Procedures/MDM PROCEDURE: Renal Ultrasound CLINICAL INDICATION: Left flank pain TECHNIQUE: Evaluation of the kidneys and bladder was performed as well with gaming scale and color and Doppler evaluation using a curved array transducer. The images were reviewed on a high-resolution PACS workstation. COMPARISON: No prior studies are available for comparison. FINDINGS: The kidneys are well visualized. There is persistent moderate to severe left hydronephrosis. There is hyperechoic shadowing in the proximal ureter / distal renal pelvis consistent with large stone seen on prior study. The right kidney measures 12.5 cm in length. The left kidney measures 12.9 cm in length. No perinephric fluid collection is seen. The bladder is within normal limits. IMPRESSION: 1. Large left proximal ureteral/distal pelvic stone with moderate to severe left hydronephrosis. Recommend correlation with CT abdomen pelvis 10/15/2016. ER Course: Dilaudid and Toradol given in ED. Pain controlled. Case was discussed with Dr. Walker based on the necessity for admission. Given patient does not have acute kidney failure or sepsis patient does not require admission at this time. Patient's pain is controlled in the emergency room. Patient will be discharged. MDM: I have low suspicion for acute kidney failure. I have low suspicion for septic nephrolithiasis or pyelonephritis. Patient does have 1+ leuk seen on urine dip I will treat for possible urinary tract infection. Patient is producing urine and BUN/creatinine are within normal limits. Patient is stable for outpatient management. Patient's pain is controlled in the emergency room. I will discharge with strong pain medication and recommended follow-up with urologist within 1-2 days for close evaluation. All questions answered at discharge. I have low suspicion for other abdominal emergency at this time. Patient is having normal bowel movements and vital signs are stable. I do not feel there is indication for an additional CT as patient has had 4 CTs within the last year. Departure Diagnosis: Primary Impression: Flank pain Condition: Stable Patient Instructions: Kidney Stone W/ Colic Referrals: JOSE DELA CRUZ MD Additional Instructions: FOLLOW UP WITH YOUR PRIMARY CARE PHYSICIAN TOMORROW.Return to this facility if you are not improving as expected. DOUGIE KATE PA-C Nov 14, 2016 14:18
[2016-11-14] MEDS ORDERED: OXYCODONE/ACETAMINOPHEN (10/325) TAB PO ONE (14:30)
--- NOTE | 2016-11-17 07:50 | RADRPT ---
PROCEDURE: Renal Ultrasound CLINICAL INDICATION: Left flank pain TECHNIQUE: Evaluation of the kidneys and bladder was performed as well with gaming scale and color and Doppler evaluation using a curved array transducer. The images were reviewed on a high-resoluti on PACS workstation. COMPARISON: No prior studies are available for comparison. FINDINGS: The kidneys are well visualized. There is persistent moderate to severe left hydronephrosis. There i s hyperechoic shadowing in the proximal ureter / distal renal pelvis consistent with large stone see n on prior study. The right kidney measures 12.5 cm in length. The left kidney measures 12.9 cm in length. No perinephric fluid collection is seen. The bladder is within normal limits. IMPRESSION: 1. Large left proximal ureteral/distal pelvic stone with moderate to severe left hydronephrosis. Re commend correlation with CT abdomen pelvis 10/15/2016. RPTAT: KK .Prashant Bradley MD, MD Date Time Electronically viewed and signed by .Prashant Bradley MD, MD on 11/14/2016 13:48 .B/
== END 2016-11-14 14:35 | disposition home or self-care (01) ==
LOC: FTE 10:24
DX: R10.9 Unspecified abdominal pain (principal); E11.9 Type 2 diabetes mellitus without complications; F17.210 Nicotine dependence, cigarettes, uncomplicated; Z79.84 Long term (current) use of oral hypoglycemic drugs
CPT/HCPCS: 36415; 76775; 80053; 81001; 83690; 85025; 96361; 96374; 96375; J1170; J1885; J2405; J7030; Z7502; Z7610

== ENCOUNTER 2016-11-17 21:45 | Emergency (ER) | payer OTHER ==
[~2016-11-17] VITALS: Ht 180.3 cm; Wt 109.0 kg
[~2016-11-17 21:45] MED LIST changes: +CIPR500T4 PO; +OXYC-279 PO; +TAMS-14 PO
[2016-11-17 21:52] VITALS: Ht 180.3 cm; Wt 109.0 kg
[2016-11-18] MEDS ORDERED: KETOROLAC 60 MG INJ IM STA (00:07)
[2016-11-18 01:40] LABS: ADD UMIC YES; UR ASCORBIC ACID NEGATIVE (NEGATIVE); UR BILIRUBIN (Dip) NEGATIVE (NEGATIVE); UR BLOOD (Dip) NEGATIVE (NEGATIVE); UR CLARITY CLEAR (CLEAR); UR COLOR STRAW (YELLOW); UR GLUCOSE (Dip) NEGATIVE (NEGATIVE); UR KETONES (Dip) NEGATIVE (NEGATIVE); UR LEUKOCYTE ESTERASE (Dip) TRACE Leu/ul (NEGATIVE); UR NITRITE (Dip) NEGATIVE (NEGATIVE); UR RBC 0 /HPF (0-5); UR SPECIFIC GRAVITY (Dip) 1.013 (1.003-1.030); UR TOTAL PROTEIN (Dip) NEGATIVE (NEGATIVE); UR UROBILINOGEN (Dip) NEGATIVE (NEGATIVE)
[2016-11-18 01:54] LABS: CALCIUM 9.4 mg/dl (8.4-10.2); CREATININE 1.51 mg/dl (0.61-1.24); POTASSIUM 3.7 mmol/L (3.5-5.1)
[2016-11-18] MEDS ORDERED: IBUP800T25 PO (02:22)
--- NOTE | 2016-11-18 02:32 | RADRPT ---
PROCEDURE: Renal US. CLINICAL INDICATION: flank pain, hx urolithiasis TECHNIQUE: Multiple sonographic images of the kidneys were obtained. The images were reviewed on a PACS workstation. COMPARISON: 11/14/2016 FINDINGS: The kidneys are normal in size, contour and echogenicity. The right kidney measures 13 cm in length. The left kidney measures 11.8 cm in length. There is moderate hydronephrosis. There are no focal ar eas of abnormal echogenicity. The bladder is partially distended. IMPRESSION: Moderate left hydronephrosis. No significant change Physician Maria Luisa Date Time Electronically viewed and signed by Physician Maria Luisa on 11/18/2016 02:32 CS/
--- NOTE | 2016-11-18 03:23 | ERD ---
ER Documentation Chief Complaint Date/Time DATE: 11/18/16 TIME: 03:04 Chief Complaint left flank pain,n/v x 4 mos has kidney stones HPI 46-year-old male with history of kidney stone is complaining of left flank pain for month. Patient stated the pain has gotten worse in the last few days. Pain is intermittent, radiates from the left flank down across the front towards his left groin. Patient stated that he was told that he has a large kidney stone in his left kidney. Patient has seen a urologist, and obtain a authorization from his insurance for lithotripsy. However his urologist was just will not proceed perform the procedure. 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 He came here today wanting us to call his PCP to be admitted. That is fever or chills. Denies dysuria. Denies vomiting or diarrhea. ROS All systems reviewed and are negative except as per history of present illness. Medications Home Meds Active Scripts Ibuprofen* (Motrin*) 800 Mg Tab, 800 MG PO Q6H Y for PAIN AND OR ELEVATED TEMP, #30 TAB Prov:SUNITA YAN [employer] 11/18/16 Tamsulosin Hcl* (Flomax*) 0.4 Mg Cap.er.24h, 0.4 MG PO BID, #30 CAP Prov:DOUGIE KATE PA-C 11/14/16 Oxycodone HCl/Acetaminophen (Percocet 5-325 mg Tablet) 1 Each Tablet, 1 EACH PO BID, #15 TAB Prov:DOUGIE KATE PA-C 11/14/16 Ciprofloxacin Hcl* (Ciprofloxacin Hcl*) 500 Mg Tablet, 500 MG PO BID for 7 Days , TAB Prov:DOUGIE KATE PA-C 11/14/16 Ondansetron (Ondansetron Odt) 4 Mg Tab.rapdis, 4 MG PO Q6H Y for NAUSEA AND/OR VOMITING, #10 TAB Prov:GREGORY SIMS 10/15/16 Hydrocodone/Acetaminophen ([place] 10-325 Tablet) 1 Each Tablet, 1 TAB PO Q6H Y for PAIN, #20 TAB Prov:GREGORY SIMS 10/15/16 Ibuprofen* (Motrin*) 800 Mg Tab, 800 MG PO Q6H Y for PAIN AND OR ELEVATED TEMP, #30 TAB Prov:SUNITA YAN [employer] 09/25/16 Hydrocodone/Acetaminophen ([place] 5-325 Tablet) 1 Each Tablet, 1 EACH PO Q6 Y for PAIN, #20 TAB Prov:ARACELY SELLERS PA-C 09/18/16 Cephalexin* (Cephalexin*) 500 Mg Capsule, 500 MG PO TID, #42 CAP Prov:ARACELY SELLERS PA-C 09/18/16 Hydrocortisone Acetate (Anusol-Hc) 25 Mg Supp.rect, 1 SUPP [place] BID Y for HEMORROID PAIN/ITCHING, #12 SUPP.RECT Prov:RUFINO RIZZO PA-C 08/18/16 Hydrocodone/Acetaminophen ([place] 5-325 Tablet) 1 Each Tablet, 1 TAB PO Q6H Y for PAIN, #14 TAB Prov:RUFINO RIZZO PA-C 08/18/16 Reported Medications Omeprazole* (Omeprazole*) 40 Mg Capsule.dr, 40 MG PO DAILY, #30 CAP 08/28/16 Metformin* (Glucophage*) 500 Mg Tab, 500 MG PO WITH BREAKFAST DINNE, #30 TAB 08/28/16 Acetaminophen* (Acetaminophen*) 500 MG Extra Strength Tablet, 500 MG PO Q4H Y for PAIN AND OR ELEVATED TEMP, TAB 08/28/16 Allergies Allergies: Coded Allergies: No Known Allergy (Unverified , 10/15/16) PMhx/Soc History of Surgery: Yes (Kidney Stents Placed/Removal) Anesthesia Reaction: No Hx Neurological Disorder: No Hx Respiratory Disorders: No Hx Cardiac Disorders: No Hx Psychiatric Problems: No Hx Miscellaneous Medical Probl: Yes (DM,Nephrolithiasis) Hx Alcohol Use: No Hx Substance Use: No Hx Tobacco Use: Yes (1 pack/day) Smoking Status: Current some day smoker Physical Exam Vitals Vital Signs Date Time Temp Pulse Resp B/P Pulse Ox O2 Delivery O2 Flow Rate FiO2 11/17/16 21:52 99.4 103 20 139/85 98 Physical Exam General: Well-developed, well-nourished, conscious and coherent, in no distress Skin: Warm and dry without rash, good texture and turgor Head: Normocephalic without evidence of trauma Eyes: Sclera and conjunctivae normal; pupils equal, round, and reactive to light; extraocular movements are intact Chest: Normal AP diameter. Good expansion without retractions. Nontender. Lungs are clear to auscultate bilaterally with good tidal volume Heart: Regular rate and rhythm. No murmur, rub, or gallops heard Abdomen: Soft, left lower quadrant tenderness without masses, guarding, or rebound. Bowel sounds are active. No hepatosplenomegaly Back: Left CVA tenderness without spinal tenderness Extremities: Full range of motion. Good strength bilaterally. No clubbing, cyanosis, or edema. Peripheral pulses are intact. Sensation intact Neuro: Alert and oriented 4, GCS 15. Cranial nerves grossly intact. Motor and sensory exams nonfocal. Moves all extremities. Speech clear. Gait normal Result Diagram: 11/18/16 0125 Results 24 hrs Laboratory Tests Test 11/18/16 01:25 Urine Color STRAW Urine Clarity CLEAR Urine pH 6.0 Urine Specific [place] 1.013 Urine Ketones NEGATIVEmg/dL Urine Nitrite NEGATIVEmg/dL Urine Bilirubin NEGATIVEmg/dL Urine Urobilinogen NEGATIVEmg/dL Urine Leukocyte Esterase TRACELeu/ul Urine Microscopic RBC 0/HPF Urine Microscopic WBC 5/HPF Urine Hemoglobin NEGATIVEmg/dL Urine Glucose NEGATIVEmg/dL Urine Total Protein NEGATIVEmg/dl Sodium Level 140mmol/L Potassium Level 3.7mmol/L Chloride Level 106mmol/L Carbon Dioxide Level 26mmol/L Anion Gap 12 Blood Urea Nitrogen 19mg/dl Creatinine 1.51mg/dl Glucose Level 175mg/dl Calcium Level 9.4mg/dl Current Medications Medications (Trade) Dose Ordered Sig/Jaison Route PRN Reason Start Time Stop Time Status Last Admin Dose Admin Ketorolac Tromethamine (Toradol) 60 mg ONCE STAT IM 11/18/16 00:07 11/18/16 00:09 DC 11/18/16 00:18 PROCEDURE: Renal US. CLINICAL INDICATION: flank pain, hx urolithiasis TECHNIQUE: Multiple sonographic images of the kidneys were obtained. The images were reviewed on a PACS workstation. COMPARISON: 11/14/2016 FINDINGS: The kidneys are normal in size, contour and echogenicity. The right kidney measures 13 cm in length. The left kidney measures 11.8 cm in length. There is moderate hydronephrosis. There are no focal areas of abnormal echogenicity. The bladder is partially distended. IMPRESSION: Moderate left hydronephrosis. No significant change Physician Maria Luisa Date Time Electronically viewed and signed by Khurram Driscoll Physician on 11/18/2016 02: 32 CS/ CC: SUNITA YAN [employer]ER Procedures/MDM 46-year-old male with history of renal urolithiasis presented to ED with left flank pain that radiates towards the left groin. Patient symptoms and exam findings are consistent with passing of the stone. Review of patient's medical records show the CT scan done about 2 months ago indicated a 2 cm x 1 cm stone in the left kidney. She was seen here 3 days ago for the same complaints. He received Flomax, Percocet, and Cipro at that time. Patient requests us to call his PCP and get him admitted. I advised patient that can only admit him if there is indication for acute kidney injury. Patient is given Toradol 60 mg IM in the ED for pain. Patient reports resolution of pain after Toradol. Renal ultrasound and BMP was obtained. Moderate hydronephrosis is seen the left kidney, no change from 3 days ago. His creatinine today is 1.5, slightly increased from 1.1 3 days ago. I consulted my supervising MD, Dr. Sims, who stated the patient can be discharged home with urology follow-up. Patient appears well, stable for discharge and outpatient management. Medical decision making shared with patient and family. Education provided to patient and family. Patient and family expressed understanding of the plan. Medications on discharge: Ibuprofen. Follow-up: Urologist Disclaimer: Inadvertent spelling and grammatical errors are likely due to EHR/ dictation software use and do not reflect on the overall quality of patient care. Also, please note that the electronic time recorded on this note does not necessarily reflect the actual time of the patient encounter. Departure Diagnosis: Primary Impression: Urolithiasis Condition: Stable Patient Instructions: Kidney Stone W/ Colic Referrals: [facility] YOU HAVE RECEIVED A MEDICAL SCREENING EXAM AND THE RESULTS INDICATE THAT YOU DO NOT HAVE A CONDITION THAT REQUIRES URGENT TREATMENT IN THE EMERGENCY DEPARTMENT. FURTHER EVALUATION AND TREATMENT OF YOUR CONDITION CAN WAIT UNTIL YOU ARE SEEN IN YOUR DOCTORS OFFICE WITHIN THE NEXT 1-2 DAYS. IT IS YOUR RESPONSIBILITY TO MAKE AN APPOINTMENT FOR FOLOW-UP CARE. IF YOU HAVE A PRIMARY DOCTOR --you should call your primary doctor and schedule an appointment IF YOU DO NOT HAVE A PRIMARY DOCTOR YOU CAN CALL OUR PHYSICIAN REFERRAL HOTLINE AT IF YOU CAN NOT AFFORD TO SEE A PHYSICIAN YOU CAN CHOSE FROM THE FOLLOWING [facility] [address] [facility] [facility] [address] [facility] [address] [facility] [address] [facility]. [facility] [address] [facility]. [facility]. [address] Additional Instructions: Follow up with your urologist for kidney stone management. SUNITA YAN NP Nov 18, 2016 03:21
== END 2016-11-18 02:32 | disposition home or self-care (01) ==
LOC: FTE 21:45
DX: N20.9 Urinary calculus, unspecified (principal); E11.9 Type 2 diabetes mellitus without complications; F17.210 Nicotine dependence, cigarettes, uncomplicated; Z79.84 Long term (current) use of oral hypoglycemic drugs
CPT/HCPCS: 76775; 80048; 81001; 96372; J1885; Z7502

== ENCOUNTER 2016-11-24 23:27 | Emergency (ER) | payer OTHER ==
[~2016-11-24] VITALS: Ht 165.1 cm; Wt 110.0 kg
[2016-11-24 23:35] VITALS: Ht 165.1 cm; Wt 110.0 kg
[2016-11-25] MEDS ORDERED: SOD CHLORIDE 0.9% 1,000 ML IV STA (02:17)
[2016-11-25] MEDS ORDERED: morphine 4 MG/ML VIAL IV STA (02:17)
[2016-11-25] MEDS ORDERED: ONDANSETRON 4 MG INJ IV STA (02:17)
[2016-11-25] MEDS ORDERED: KETOROLAC 30 MG INJ IV STA (02:17)
--- NOTE | 2016-11-25 02:42 | ERD ---
ER Documentation Chief Complaint Date/Time DATE: 11/25/16 TIME: 02:40 Chief Complaint flank pain ; hx of kidney stones sixe 22mm per pt HPI 46-year-old male presents to emergency department for complaints of left flank pain that been going on for a week now, patient was diagnosed to have kidney stones, patient started to have severe pain today. Patient describes the pain as sharp pain, 9/10 scale, not better or worse with anything. Patient denies any fever or chills. Patient denies any nausea or vomiting. ROS All systems reviewed and are negative except as per history of present illness. Medications Home Meds Active Scripts Ibuprofen* (Motrin*) 800 Mg Tab, 800 MG PO Q6H Y for PAIN AND OR ELEVATED TEMP, #30 TAB Prov:SUNITA YAN NP 11/18/16 Tamsulosin Hcl* (Flomax*) 0.4 Mg Cap.er.24h, 0.4 MG PO BID, #30 CAP Prov:DOUGIE KATE PA-C 11/14/16 Oxycodone HCl/Acetaminophen (Percocet 5-325 mg Tablet) 1 Each Tablet, 1 EACH PO BID, #15 TAB Prov:DOUGIE KATE PA-C 11/14/16 Ciprofloxacin Hcl* (Ciprofloxacin Hcl*) 500 Mg Tablet, 500 MG PO BID for 7 Days , TAB Prov:DOUGIE KATE PA-C 11/14/16 Ondansetron (Ondansetron Odt) 4 Mg Tab.rapdis, 4 MG PO Q6H Y for NAUSEA AND/OR VOMITING, #10 TAB Prov:GREGORY SIMS 10/15/16 Hydrocodone/Acetaminophen ([place] 10-325 Tablet) 1 Each Tablet, 1 TAB PO Q6H Y for PAIN, #20 TAB Prov:GREGORY SIMS S. 10/15/16 Ibuprofen* (Motrin*) 800 Mg Tab, 800 MG PO Q6H Y for PAIN AND OR ELEVATED TEMP, #30 TAB Prov:SUNITA YAN NP 09/25/16 Hydrocodone/Acetaminophen ([place] 5-325 Tablet) 1 Each Tablet, 1 EACH PO Q6 Y for PAIN, #20 TAB Prov:ARACELY SELLERS PA-C 09/18/16 Cephalexin* (Cephalexin*) 500 Mg Capsule, 500 MG PO TID, #42 CAP Prov:ARACELY SELLERS PA-C 09/18/16 Hydrocortisone Acetate (Anusol-Hc) 25 Mg Supp.rect, 1 SUPP SD BID Y for HEMORROID PAIN/ITCHING, #12 SUPP.RECT Prov:RUFINO RIZZO PA-C 08/18/16 Hydrocodone/Acetaminophen ([place] 5-325 Tablet) 1 Each Tablet, 1 TAB PO Q6H Y for PAIN, #14 TAB Prov:RUFINO RIZZO PA-C 08/18/16 Reported Medications Omeprazole* (Omeprazole*) 40 Mg Capsule.dr, 40 MG PO DAILY, #30 CAP 08/28/16 Metformin* (Glucophage*) 500 Mg Tab, 500 MG PO WITH BREAKFAST DINNE, #30 TAB 08/28/16 Acetaminophen* (Acetaminophen*) 500 MG Extra Strength Tablet, 500 MG PO Q4H Y for PAIN AND OR ELEVATED TEMP, TAB 08/28/16 Allergies Allergies: Coded Allergies: No Known Allergy (Unverified , 10/15/16) PMhx/Soc History of Surgery: Yes (Kidney Stents Placed/Removal) Anesthesia Reaction: No Hx Neurological Disorder: No Hx Respiratory Disorders: No Hx Cardiac Disorders: No Hx Psychiatric Problems: No Hx Miscellaneous Medical Probl: Yes (DM,Nephrolithiasis) Hx Alcohol Use: No Hx Substance Use: No Hx Tobacco Use: Yes (1 pack/day) Smoking Status: Heavy tobacco smoker FmHx Family History: No coronary disease, No diabetes, No other Physical Exam Vitals Vital Signs Date Time Temp Pulse Resp B/P Pulse Ox O2 Delivery O2 Flow Rate FiO2 11/24/16 23:35 98.5 95 20 138/89 99 Physical Exam GENERAL: The patient is well developed and appropriate for usual state of health, in no apparent distress. CHEST: Clear to auscultation bilaterally. There are no rales, wheezes or rhonchi. HEART: Regular rate and rhythm. No murmurs, clicks, rubs or gallops. No S3 or S4. ABDOMEN: Soft, nontender and nondistended. Good bowel sounds. No rebound or guarding. No gross peritonitis. No gross organomegaly or masses. No Mak sign or McBurney point tenderness. BACK: No midline or flank tenderness. EXTREMITIES: Equal pulses bilaterally. There is no peripheral clubbing, cyanosis or edema. No focal swelling or erythema. Full range of motion. Grossly neurovascularly intact. NEURO: Alert and oriented. Cranial nerves 2-12 intact. Motor strength in all 4 extremities with 5/5 strength. Sensation grossly intact. Normal speech and gait. SKIN: There is no apparent rash or petechia. The skin is warm and dry. HEMATOLOGIC AND LYMPHATIC: There is no evidence of excessive bruising or lymphedema. No gross cervical, axillary, or inguinal lymphadenopathy. Result Diagram: 11/25/16 0245 11/25/16 0245 Results 24 hrs Laboratory Tests Test 11/25/16 02:15 11/25/16 02:45 Urine Color YELLOW Urine Clarity CLOUDY Urine pH 5.0 Urine Specific [place] 1.024 Urine Ketones NEGATIVEmg/dL Urine Nitrite NEGATIVEmg/dL Urine Bilirubin NEGATIVEmg/dL Urine Urobilinogen NEGATIVEmg/dL Urine Leukocyte Esterase 1+Preeti/ul Urine Microscopic RBC 1/HPF Urine Microscopic WBC 13/HPF Urine Calcium Oxalate Crystals FEW/HPF Urine Bacteria FEW/HPF Urine Mucus FEW/HPF Urine Hemoglobin NEGATIVEmg/dL Urine Glucose NEGATIVEmg/dL Urine Total Protein NEGATIVEmg/dl White Blood Count 8.510^3/ul Red Blood Count 4.5610^6/ul Hemoglobin 10.7g/dl Hematocrit 35.3% Mean Corpuscular Volume 77.4fl Mean Corpuscular Hemoglobin 23.5pg Mean Corpuscular Hemoglobin Concent 30.3g/dl Red Cell Distribution Width 15.9% Platelet Count 13291^3/UL Mean Platelet Volume 12.3fl Neutrophils % 61.1% Lymphocytes % 27.7% Monocytes % 7.3% Eosinophils % 2.0% Basophils % 0.8% Nucleated Red Blood Cells % 0.0/100WBC Neutrophils # 5.210^3/ul Lymphocytes # 2.410^3/ul Monocytes # 0.610^3/ul Eosinophils # 0.210^3/ul Basophils # 0.110^3/ul Nucleated Red Blood Cells # 0.010^3/ul Sodium Level 144mmol/L Potassium Level 4.1mmol/L Chloride Level 111mmol/L Carbon Dioxide Level 25mmol/L Anion Gap 12 Blood Urea Nitrogen 20mg/dl Creatinine 1.60mg/dl Glucose Level 191mg/dl Calcium Level 8.7mg/dl Total Bilirubin 0.0mg/dl Direct Bilirubin 0.00mg/dl Indirect Bilirubin 0.0mg/dl Aspartate Amino Transf (AST/SGOT) 14IU/L Alanine Aminotransferase (ALT/SGPT) 34IU/L Alkaline Phosphatase 58IU/L Total Protein 7.2g/dl Albumin 3.9g/dl Globulin 3.30g/dl Albumin/Globulin Ratio 1.18 Lipase 111U/L Current Medications Medications (Trade) Dose Ordered Sig/Jaison Route PRN Reason Start Time Stop Time Status Last Admin Dose Admin Sodium Chloride (NS) 1,000 ml @ 1,000 mls/hr Q1H STAT IV 11/25/16 02:17 11/25/16 03:16 DC 11/25/16 02:38 Morphine Sulfate (morphine) 4 mg ONCE STAT IV 11/25/16 02:17 11/25/16 02:18 DC 11/25/16 02:39 Ondansetron HCl (Zofran Inj) 4 mg ONCE STAT IV 11/25/16 02:17 11/25/16 02:18 DC 11/25/16 02:38 Ketorolac Tromethamine (Toradol) 30 mg ONCE STAT IV 11/25/16 02:17 11/25/16 02:18 DC 11/25/16 02:38 Patient was given medication for pain here in emergency department, after treatment, patient verbalized feeling much better. Patient's pain is improved. Patient was given Zofran here in the emergency department. After treatment, patient was able to tolerate po fluids here in the emergency department without any vomiting. There is no signs and symptoms of dehydration. Normal saline IV bolus was given here in emergency department for rehydration, patient tolerated IV fluids. PROCEDURE: CT Abdomen and pelvis without contrast. CLINICAL INDICATION: Abdominal pain. TECHNIQUE: CT scan of the abdomen and pelvis was performed on a multi- detector high-resolution CT scanner. Contiguous axial images were obtained from the lung bases to the ischial tuberosities without intravenous contrast. Coronal and sagittal reformatted images were also obtained. Images were reviewed on the PACS workstation. One or more of the following dose reduction techniques were used: - Automated exposure control. - Adjustment of the mA and/or kV according to patient size. - Use of iterative reconstruction technique. Exam CTD/vol = 21.28 mGy. Total exam DLP = 1421.77 mGy-cm. COMPARISON: 10/15/2016. FINDINGS: Evaluation of the lung bases demonstrates mild bibasilar atelectasis. Abdomen: The liver is normal in size and diffusely low in attenuation consistent with fatty infiltration. There is no focal mass or dilatation of the biliary tree. The gallbladder is not distended. The spleen, pancreas and bilateral adrenal glands are within normal limits. Bilateral kidneys are normal in size with no contour deforming mass identified. There are multiple calculi within the lower pole of the left kidney measuring up to 3 mm. There is a calculus within the left renal pelvis measuring 25 x 11 mm. There is mild left- sided hydronephrosis with mild perinephric stranding. There is no retroperitoneal adenopathy. The abdominal aorta is of normal caliber. There is a tiny umbilical hernia containing fat. There is no bowel obstruction or free air. A normal appendix is identified. There is no diverticulosis or diverticulitis. There is no ascites. Pelvis: The bladder is unremarkable. The prostate and seminal vesicles are within normal limits. There are prominent reactive inguinal lymph nodes bilaterally with the largest on the left measuring 3.8 x 2.0 cm. There is no significant pelvic free fluid. Evaluation of the osseous structures demonstrates no suspicious lytic or blastic lesion. IMPRESSION: Left renal pelvis 25 x 11 mm calculus with mild left-sided hydronephrosis, unchanged compared with 10/15/2016. Left renal calculi. Fatty infiltration of the liver. Tiny umbilical hernia containing fat. Mild bibasilar atelectasis. .Fermin Baron MD, MD Date Time Electronically viewed and signed by .Fermin Baron MD, MD on 11/25/2016 03:22 .T/ CC: ESTEPH[employer]IA WHE[employer]ER [employer]ATOR Procedures/MDM Medical Decision Making: Patient's symptoms most likely is consistent with obstructed stone, elevated creatinine, also has some infection in the urine. Patient has been here 3 times in the last 2 weeks, pain is uncontrolled by outpatient management, I discussed this case with my attending physician, Dr. Mccormick, most likely patient needs urology evaluation, patient has history of stent placement before and has history of moderate hydronephrosis from the obstructed stone. Patient will be admitted to the hospital for further evaluation and treatment. Disclaimer: Inadvertent spelling and grammatical errors are likely due to EHR/ dictation software use and do not reflect on the overall quality of patient care. Also, please note that the electronic time recorded on this note does not necessarily reflect the actual time of the patient encounter. Departure Diagnosis: Primary Impression: Obstructive uropathy Condition: Stable ESTEPHANIA WHEELER NP Nov 25, 2016 02:42
[2016-11-25 02:56] LABS: ABNORMAL IP MESSAGE 1; BASOPHIL # 0.1 10^3/ul (0.0-0.1); BASOPHILS % 0.8 % (0.0-2.0); EOSINOPHILS # 0.2 10^3/ul (0.0-0.5); HEMATOCRIT 35.3 % (42.0-52.0); HEMOGLOBIN 10.7 g/dl (14.0-18.0); LYMPHOCYTES # 2.4 10^3/ul (0.8-2.9); LYMPHOCYTES % 27.7 % (15.0-51.0); MEAN CORPUSCULAR HEMOGLOBIN 23.5 pg (29.0-33.0); MEAN CORPUSCULAR HGB CONC 30.3 g/dl (32.0-37.0); MEAN CORPUSCULAR VOLUME 77.4 fl (82.0-101.0); MEAN PLATELET VOLUME 12.3 fl (7.4-10.4); MONOCYTE # 0.6 10^3/ul (0.3-0.9); MONOCYTES % 7.3 % (0.0-11.0); NEUTROPHIL # 5.2 10^3/ul (1.6-7.5); NEUTROPHILS % 61.1 % (39.0-77.0); PLATELET COUNT 166 10^3/UL (140-415); POSITIVE DIFF @See below; RED BLOOD COUNT 4.56 10^6/ul (4.70-6.10); RED CELL DISTRIBUTION WIDTH 15.9 % (11.5-14.5); WHITE BLOOD COUNT 8.5 10^3/ul (4.8-10.8)
[2016-11-25 03:21] LABS: ALBUMIN 3.9 g/dl (3.3-4.9); ALBUMIN/GLOBULIN RATIO 1.18; CALCIUM 8.7 mg/dl (8.4-10.2); CREATININE 1.6 mg/dl (0.61-1.24); POTASSIUM 4.1 mmol/L (3.5-5.1); TOTAL PROTEIN 7.2 g/dl (6.1-8.1)
--- NOTE | 2016-11-25 03:22 | RADRPT ---
PROCEDURE: CT Abdomen and pelvis without contrast. CLINICAL INDICATION: Abdominal pain. TECHNIQUE: CT scan of the abdomen and pelvis was performed on a multi-detector high-resolution CT scanner. Contiguous axial images were obtained from the lung bases to the ischial tuberosities wit hout intravenous contrast. Coronal and sagittal reformatted images were also obtained. Images were reviewed on the PACS workstation. One or more of the following dose reduction techniques were used: - Automated exposure control. - Adjustment of the mA and/or kV according to patient size. - Use of iterative reconstruction technique. Exam CTD/vol = 21.28 mGy. Total exam DLP = 1421.77 mGy-cm. COMPARISON: 10/15/2016. FINDINGS: Evaluation of the lung bases demonstrates mild bibasilar atelectasis. Abdomen: The liver is normal in size and diffusely low in attenuation consistent with fatty infiltra tion. There is no focal mass or dilatation of the biliary tree. The gallbladder is not distended. Th e spleen, pancreas and bilateral adrenal glands are within normal limits. Bilateral kidneys are norm al in size with no contour deforming mass identified. There are multiple calculi within the lower po le of the left kidney measuring up to 3 mm. There is a calculus within the left renal pelvis measuri ng 25 x 11 mm. There is mild left-sided hydronephrosis with mild perinephric stranding. There is no retroperitoneal adenopathy. The abdominal aorta is of normal caliber. There is a tiny umbilical hernia containing fat. There is no bowel obstruction or free air. A normal appendix is identified. There is no diverticulosis or diverticulitis. There is no ascites. Pelvis: The bladder is unremarkable. The prostate and seminal vesicles are within normal limits. The re are prominent reactive inguinal lymph nodes bilaterally with the largest on the left measuring 3. 8 x 2.0 cm. There is no significant pelvic free fluid. Evaluation of the osseous structures demonstrates no suspicious lytic or blastic lesion. IMPRESSION: Left renal pelvis 25 x 11 mm calculus with mild left-sided hydronephrosis, unchanged compared with 0 10/15/2016. Left renal calculi. Fatty infiltration of the liver. Tiny umbilical hernia containing fat. Mild bibasilar atelectasis. .Fermin Baron MD, MD Date Time Electronically viewed and signed by .Fermin Baron MD, MD on 11/25/2016 03:22 .T/
[2016-11-25 03:24] LABS: ADD UMIC YES; UR ASCORBIC ACID NEGATIVE (NEGATIVE); UR BACTERIA FEW /HPF (NONE SEEN); UR BILIRUBIN (Dip) NEGATIVE (NEGATIVE); UR BLOOD (Dip) NEGATIVE (NEGATIVE); UR CLARITY CLOUDY (CLEAR); UR COLOR YELLOW (YELLOW); UR GLUCOSE (Dip) NEGATIVE (NEGATIVE); UR KETONES (Dip) NEGATIVE (NEGATIVE); UR LEUKOCYTE ESTERASE (Dip) 1+ Leu/ul (NEGATIVE); UR MUCUS FEW /HPF (NONE SEEN); UR NITRITE (Dip) NEGATIVE (NEGATIVE); UR RBC 1 /HPF (0-5); UR SPECIFIC GRAVITY (Dip) 1.024 (1.003-1.030); UR TOTAL PROTEIN (Dip) NEGATIVE (NEGATIVE); UR UROBILINOGEN (Dip) NEGATIVE (NEGATIVE)
[2016-11-25 05:48] VITALS: BP 123/75; PULSE 69; RESP 16; TEMP 97.2
[2016-11-25] MEDS ORDERED: CEFTRIAXONE 1 GM/50 ML (PMX) 50 ML IVPB ONE (06:30)
[2016-11-25] MEDS ORDERED: IBUP-1542 PO (07:28)
[2016-11-25] MEDS ORDERED: HYDR-902 PO (07:28)
--- NOTE | 2016-11-25 07:29 | QN ---
Documentation Comment My independent concise history is left-sided flank pain. My pertinent physical exam findings are left-sided flank pain but no acute distress. The plan is I spoke with Dr. Rhodes for possible admission. Dr. Rhodes does not feel that inpatient admission is necessary at this time as the patient would benefit from lithotripsy which is not done in the hospital. Dr. Rhodes will arrange for outpatient urology follow-up and IV ceftriaxone as an outpatient. The patient will be given a prescription for ibuprofen and [place] for pain. His vital signs are normal and he is otherwise well-appearing. I doubt sepsis at this time. Urine culture is pending. TRISH GARCÍA MD Nov 25, 2016 07:29
[2016-11-25] MEDS ORDERED: HYDROmorphONE 1 MG/ML SYG IV STA (09:11)
== END 2016-11-25 07:26 | disposition home or self-care (01) ==
LOC: FTE 23:27
DX: N13.9 Obstructive and reflux uropathy, unspecified (principal); E11.9 Type 2 diabetes mellitus without complications; F17.210 Nicotine dependence, cigarettes, uncomplicated; Z79.84 Long term (current) use of oral hypoglycemic drugs
CPT/HCPCS: 36415; 74176; 80053; 81001; 83690; 85025; 87086; 96374; 96375; J0696; J1170; J1885; J2270; J2405; J7030; Z7502

== ENCOUNTER 2016-11-30 12:34 | Emergency (ER) | payer OTHER ==
[~2016-11-30] VITALS: Ht 157.5 cm; Wt 105.5 kg
[~2016-11-30 12:34] MED LIST changes: +IBUP-1542 PO
[2016-11-30 12:37] VITALS: Ht 157.5 cm; Wt 105.5 kg
[2016-11-30] MEDS ORDERED: HYDROmorphONE 1 MG/ML SYG IV STA (13:17)
[2016-11-30] MEDS ORDERED: ONDANSETRON 4 MG INJ IV STA (13:17)
--- NOTE | 2016-11-30 13:44 | ERD ---
ER Documentation Chief Complaint Date/Time DATE: 11/30/16 TIME: 13:43 Chief Complaint Problems with picc line needs a picc line replacement HPI Patient has a left upper extremity peripheral IV placed getting antibiotics for his kidney stone and stent. At home they are trying to flush it and the flushes is leaking out down the arms that into the vein. There is no swelling or pain or redness ROS All systems reviewed and are negative except as per history of present illness. Medications Home Meds Active Scripts Hydrocodone/Acetaminophen ([place] 10-325 Tablet) 1 Each Tablet, 1 TAB PO Q6H Y for PAIN, #12 TAB Prov:TRISH GARCÍA MD 11/25/16 Ibuprofen* (Motrin*) 600 Mg Tab, 600 MG PO Q6H Y for PAIN AND OR ELEVATED TEMP, #30 TAB Prov:TRISH GARCÍA MD 11/25/16 Ibuprofen* (Motrin*) 800 Mg Tab, 800 MG PO Q6H Y for PAIN AND OR ELEVATED TEMP, #30 TAB Prov:SUNITA YAN NP 11/18/16 Tamsulosin Hcl* (Flomax*) 0.4 Mg Cap.er.24h, 0.4 MG PO BID, #30 CAP Prov:DOUGIE KATE PA-C 11/14/16 Oxycodone HCl/Acetaminophen (Percocet 5-325 mg Tablet) 1 Each Tablet, 1 EACH PO BID, #15 TAB Prov:DOUGIE KATE PA-C 11/14/16 Ciprofloxacin Hcl* (Ciprofloxacin Hcl*) 500 Mg Tablet, 500 MG PO BID for 7 Days , TAB Prov:DOUGIE KATE PA-C 11/14/16 Ondansetron (Ondansetron Odt) 4 Mg Tab.rapdis, 4 MG PO Q6H Y for NAUSEA AND/OR VOMITING, #10 TAB Prov:GREGORY SIMS 10/15/16 Hydrocodone/Acetaminophen ([place] 10-325 Tablet) 1 Each Tablet, 1 TAB PO Q6H Y for PAIN, #20 TAB Prov:GREGORY SIMS 10/15/16 Ibuprofen* (Motrin*) 800 Mg Tab, 800 MG PO Q6H Y for PAIN AND OR ELEVATED TEMP, #30 TAB Prov:SUNITA YAN NP 09/25/16 Hydrocodone/Acetaminophen ([place] 5-325 Tablet) 1 Each Tablet, 1 EACH PO Q6 Y for PAIN, #20 TAB Prov:ARACELY SELLERS PA-C 09/18/16 Cephalexin* (Cephalexin*) 500 Mg Capsule, 500 MG PO TID, #42 CAP Prov:ARACELY SELLERS PA-C 09/18/16 Hydrocortisone Acetate (Anusol-Hc) 25 Mg Supp.rect, 1 SUPP NM BID Y for HEMORROID PAIN/ITCHING, #12 SUPP.RECT Prov:RUFINO RIZZO PA-C 08/18/16 Hydrocodone/Acetaminophen ([place] 5-325 Tablet) 1 Each Tablet, 1 TAB PO Q6H Y for PAIN, #14 TAB Prov:RUFINO RIZZO PA-C 08/18/16 Reported Medications Omeprazole* (Omeprazole*) 40 Mg Capsule.dr, 40 MG PO DAILY, #30 CAP 08/28/16 Metformin* (Glucophage*) 500 Mg Tab, 500 MG PO WITH BREAKFAST DINNE, #30 TAB 08/28/16 Acetaminophen* (Acetaminophen*) 500 MG Extra Strength Tablet, 500 MG PO Q4H Y for PAIN AND OR ELEVATED TEMP, TAB 08/28/16 Allergies Allergies: Coded Allergies: No Known Allergy (Unverified , 10/15/16) PMhx/Soc History of Surgery: Yes (Kidney Stents Placed/Removal) Anesthesia Reaction: No Hx Neurological Disorder: No Hx Respiratory Disorders: No Hx Cardiac Disorders: No Hx Psychiatric Problems: No Hx Miscellaneous Medical Probl: Yes (DM,Nephrolithiasis) Hx Alcohol Use: No Hx Substance Use: No Hx Tobacco Use: Yes (1 pack/day) FmHx Family History: No coronary disease Physical Exam Vitals Vital Signs Date Time Temp Pulse Resp B/P Pulse Ox O2 Delivery O2 Flow Rate FiO2 11/30/16 12:37 97.8 118 20 139/84 97 Physical Exam Const: Well-developed, well-nourished Head: Atraumatic, normocephalic Eyes: Normal Conjunctiva, PERRLA, EOMI, normal sclera, no nystagmus ENT: Normal External Ears, Nose and Mouth, moist mucus membranes. Neck: Full range of motion. No meningismus, no lymphadenopathy. Resp: Clear to auscultation bilaterally, no wheezing, rhonchi, rales Cardio: Regular rate and rhythm, no murmurs, S1 S2 present Abd: Soft, non tender x 4, non distended. Normal bowel sounds, no guarding or rebound, no pulsitile abdominal masses or bruits Skin: No petechiae or rashes, no ecchymosis , no maculopapular rash Back: No midline or flank tenderness Ext: [No cyanosis, or edema, FROM x 4, normal inspection, neurovascularly intact x 4, the left bicep has a what appears to be a peripheral IV and not a PICC line the IV Psych: Normal Mood and Affect Results 24 hrs Current Medications Medications (Trade) Dose Ordered Sig/Jaison Route PRN Reason Start Time Stop Time Status Last Admin Dose Admin Hydromorphone HCl (Dilaudid) 1 mg ONCE STAT IV 11/30/16 13:17 11/30/16 13:18 DC 11/30/16 13:26 Ondansetron HCl (Zofran Inj) 4 mg ONCE STAT IV 11/30/16 13:17 11/30/16 13:18 DC 11/30/16 13:26 Procedures/MDM IV was pulled out therefore flush was coming out. I repositioned the IV into its correct spot and the IV was easily flushable. A new Tegaderm was placed] Departure Diagnosis: Primary Impression: Poor intravenous access Additional Impression: Malfunction of peripheral inserted central catheter Encounter type: initial encounter Qualified Code: T82.598A - Malfunction of peripheral inserted central catheter, initial encounter Condition: Stable Patient Instructions: IV Catheter Site Care JEREMIAH BAILON DO Nov 30, 2016 13:44
== END 2016-11-30 17:25 | disposition home or self-care (01) ==
LOC: E/R 12:34
DX: T82.598A Other mechanical complication of other cardiac and vascular devices and implants, initial encounter (principal); E11.9 Type 2 diabetes mellitus without complications; F17.210 Nicotine dependence, cigarettes, uncomplicated; Y71.3 Surgical instruments, materials and cardiovascular devices (including sutures) associated with adverse incidents; Z79.84 Long term (current) use of oral hypoglycemic drugs
CPT/HCPCS: 96374; 96375; J1170; J2405; Z7502

== ENCOUNTER 2016-12-12 16:49 | Inpatient (IN) | payer OTHER ==
[~2016-12-12] VITALS: Ht 172.7 cm; Wt 91.0 kg
[2016-12-12] MEDS ORDERED: morphine 4 MG/ML VIAL IV STA (17:53)
[2016-12-12] MEDS ORDERED: ONDANSETRON 4 MG INJ IV STA (17:53)
[2016-12-12] MEDS ORDERED: KETOROLAC 30 MG INJ IV STA (17:53)
[2016-12-12] MEDS ORDERED: SOD CHLORIDE 0.9% 1,000 ML IV STA (17:53)
[2016-12-12 18:19] LABS: ABNORMAL IP MESSAGE 1; BASOPHIL # 0.1 10^3/ul (0.0-0.1); BASOPHILS % 0.8 % (0.0-2.0); EOSINOPHILS # 0.2 10^3/ul (0.0-0.5); EOSINOPHILS % 1.5 % (0.0-7.0); HEMATOCRIT 34.9 % (42.0-52.0); LYMPHOCYTES # 2.9 10^3/ul (0.8-2.9); LYMPHOCYTES % 24.1 % (15.0-51.0); MEAN CORPUSCULAR HEMOGLOBIN 23.1 pg (29.0-33.0); MEAN CORPUSCULAR HGB CONC 31.5 g/dl (32.0-37.0); MEAN CORPUSCULAR VOLUME 73.2 fl (82.0-101.0); MONOCYTES % 7.9 % (0.0-11.0); NEUTROPHIL # 7.8 10^3/ul (1.6-7.5); NEUTROPHILS % 64.4 % (39.0-77.0); PLATELET COUNT 182 10^3/UL (140-415); POSITIVE DIFF @See below; RED BLOOD COUNT 4.77 10^6/ul (4.70-6.10); RED CELL DISTRIBUTION WIDTH 16.6 % (11.5-14.5); WHITE BLOOD COUNT 12.2 10^3/ul (4.8-10.8)
[2016-12-12 18:33] LABS: ALBUMIN 3.7 g/dl (3.3-4.9); ALBUMIN/GLOBULIN RATIO 1.27; CALCIUM 8.7 mg/dl (8.4-10.2); CREATININE 1.14 mg/dl (0.61-1.24); POTASSIUM 3.4 mmol/L (3.5-5.1); TOTAL PROTEIN 6.6 g/dl (6.1-8.1)
--- NOTE | 2016-12-12 18:40 | RADRPT ---
PROCEDURE: Renal US. CLINICAL INDICATION: Flank pain. History of renal calculi. TECHNIQUE: Multiple sonographic images of the kidneys and urinary bladder were obtained. The imag es were reviewed on a PACS workstation. COMPARISON: Renal ultrasound dated 11/18/2016 which demonstrated moderate left hydronephrosis. FINDINGS: The right kidney measures 12.1 x 6.4 x 4.7 cm. The left kidney measures 11.0 x 5.3 x 5.5 cm. There is no renal mass. There is no hydronephrosis. Previously noted left hydronephrosis is no longer present. There is a nonobstructing calculus in the lower left kidney measuring 1.1 x 1.8 cm. Renal parenchymal thickness is normal bilaterally. Echogenicity is normal bilaterally. The perirenal regions are normal with no fluid collection or mass. There is a calculus posteriorly in the bladder measuring 2.0 cm. IMPRESSION: 1. No hydronephrosis. 2. Nonobstructing calculus in the lower left kidney measuring 1.1 x 1.8 cm. 3. Calculus posteriorly in the bladder measuring 2.0 cm. 4. Otherwise unremarkable renal ultrasound. RPTAT: QQ .Pete Araujo MD, Date Time Electronically viewed and signed by .Pete Araujo MD, on 12/12/2016 18:40 .R/
[2016-12-12 19:20] LABS: ADD UMIC YES; UR ASCORBIC ACID 20 mg/dL (NEGATIVE); UR BACTERIA FEW /HPF (NONE SEEN); UR BILIRUBIN (Dip) NEGATIVE (NEGATIVE); UR BLOOD (Dip) 2+ mg/dL (NEGATIVE); UR CLARITY SLIGHTLY CLOUDY (CLEAR); UR COLOR YELLOW (YELLOW); UR GLUCOSE (Dip) 1+ mg/dL (NEGATIVE); UR KETONES (Dip) NEGATIVE (NEGATIVE); UR LEUKOCYTE ESTERASE (Dip) 2+ Leu/ul (NEGATIVE); UR NITRITE (Dip) NEGATIVE (NEGATIVE); UR RBC 35 /HPF (0-5); UR SPECIFIC GRAVITY (Dip) 1.016 (1.003-1.030); UR TOTAL PROTEIN (Dip) 2+ mg/dl (NEGATIVE); UR UROBILINOGEN (Dip) NEGATIVE (NEGATIVE)
[2016-12-12] MEDS ORDERED: HYDR-906 PO (23:57)
[2016-12-12] MEDS ORDERED: ONDA4TAB11 PO (23:57)
[2016-12-12] MEDS ORDERED: LEVO500T72 PO (23:57)
[2016-12-12] MEDS ORDERED: NITR-58 PO (23:57)
[2016-12-12] MEDS ORDERED: NAPR-688 PO (23:57)
[2016-12-13] MEDS ORDERED: LEVOFLOXACIN 750MG/D5W (PMX) 150 ML IVPB ONE
--- NOTE | 2016-12-13 00:11 | ERD ---
ER Documentation Chief Complaint Chief Complaint R FLANK PAIN SUDDEN ONSET WITH N/V. 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 Approximately a few hours ago. He has had pain like this before. He has had multiple renal stones and visited the emergency room many times for them. He has seen a urologist for evaluations for lithotripsy. Denies any fevers or chills, is been on ciprofloxacin at home for 2 weeks. Family states this was IV of the patient did not come in with an IV line. Also stent was placed 2 weeks ago that was supposed to remove the large renal stone. bedside [place] atv mechanic was used. ROS All systems reviewed and are negative except as per history of present illness. Medications Home Meds Active Scripts Tamsulosin Hcl* (Flomax*) 0.4 Mg Cap.er.24h, 0.4 MG PO BID, #30 CAP Prov:DOUGIE KATE PA-C 11/14/16 Ondansetron (Ondansetron Odt) 4 Mg Tab.rapdis, 4 MG PO Q6H Y for NAUSEA AND/OR VOMITING, #10 TAB Prov:GREGORY SIMS 10/15/16 Hydrocortisone Acetate (Anusol-Hc) 25 Mg Supp.rect, 1 SUPP [place] BID Y for HEMORROID PAIN/ITCHING, #12 SUPP.RECT Prov:RUFINO RIZZO PA-C 08/18/16 Reported Medications Omeprazole* (Omeprazole*) 40 Mg Capsule.dr, 40 MG PO DAILY, #30 CAP 08/28/16 Metformin* (Glucophage*) 500 Mg Tab, 500 MG PO WITH BREAKFAST DINNE, #30 TAB 08/28/16 Acetaminophen* (Acetaminophen*) 500 MG Extra Strength Tablet, 500 MG PO Q4H Y for PAIN AND OR ELEVATED TEMP, TAB 08/28/16 Discontinued Scripts Ondansetron (Zofran Odt) 4 Mg Tab.rapdis, 4 MG PO Q6, #10 Prov:ONEL HECTOR DO 12/12/16 Naproxen* (Naproxen*) 500 Mg Tablet, 500 MG PO BID Y for PAIN, #14 TAB Prov:ONEL HECTOR DO 12/12/16 Hydrocodone/Acetaminophen ([place]run[place] 5-325 Tablet) 1 Each Tablet, 1 EACH PO Q6, #20 TAB Prov:ONEL HECTOR DO 12/12/16 Nitrofurantoin Monohyd Macrocr* (Macrobid*) 100 Mg Capsr, 100 MG PO HS for 7 Days, CAP Prov:ONEL HECTOR DO 12/12/16 Levofloxacin* (Levaquin*) 500 Mg Tablet, 500 MG PO DAILY for 7 Days, TAB Prov:ONEL HECTOR DO 12/12/16 Hydrocodone/Acetaminophen ([place] 10-325 Tablet) 1 Each Tablet, 1 TAB PO Q6H Y for PAIN, #12 TAB Prov:TRISH GARCÍA MD 11/25/16 Ibuprofen* (Motrin*) 600 Mg Tab, 600 MG PO Q6H Y for PAIN AND OR ELEVATED TEMP, #30 TAB Prov:TRISH GRACÍA MD 11/25/16 Ibuprofen* (Motrin*) 800 Mg Tab, 800 MG PO Q6H Y for PAIN AND OR ELEVATED TEMP, #30 TAB Prov:SUNITA YAN NP 11/18/16 Oxycodone HCl/Acetaminophen (Percocet 5-325 mg Tablet) 1 Each Tablet, 1 EACH PO BID, #15 TAB Prov:DOUGIE KATE PA-C 11/14/16 Ciprofloxacin Hcl* (Ciprofloxacin Hcl*) 500 Mg Tablet, 500 MG PO BID for 7 Days , TAB Prov:DOUGIE KATE PA-C 11/14/16 Hydrocodone/Acetaminophen ([place] 10-325 Tablet) 1 Each Tablet, 1 TAB PO Q6H Y for PAIN, #20 TAB Prov:GREGORY SIMS 10/15/16 Ibuprofen* (Motrin*) 800 Mg Tab, 800 MG PO Q6H Y for PAIN AND OR ELEVATED TEMP, #30 TAB Prov:SUNITA YAN NP 09/25/16 Hydrocodone/Acetaminophen ([place] 5-325 Tablet) 1 Each Tablet, 1 EACH PO Q6 Y for PAIN, #20 TAB Prov:ARACELY SELLERS PA-C 09/18/16 Cephalexin* (Cephalexin*) 500 Mg Capsule, 500 MG PO TID, #42 CAP Prov:ARACELY SELLERSC 09/18/16 Hydrocodone/Acetaminophen ([place] 5-325 Tablet) 1 Each Tablet, 1 TAB PO Q6H Y for PAIN, #14 TAB Prov:RUFINO RIZZO PA-C 08/18/16 Allergies Allergies: Coded Allergies: No Known Allergy (Unverified , 10/15/16) PMhx/Soc History of Surgery: Yes (Kidney Stents Placed/Removal) Anesthesia Reaction: No Hx Neurological Disorder: No Hx Respiratory Disorders: No Hx Cardiac Disorders: No Hx Psychiatric Problems: No Hx Miscellaneous Medical Probl: Yes (DM,Nephrolithiasis) Hx Alcohol Use: No Hx Substance Use: No Hx Tobacco Use: Yes (1 pack/day) Smoking Status: Current every day smoker Physical Exam Vitals Vital Signs Date Time Temp Pulse Resp B/P Pulse Ox O2 Delivery O2 Flow Rate FiO2 12/12/16 20:23 98.4 91 16 119/72 99 Room Air 12/12/16 16:57 98.9 96 21 136/84 98 Physical Exam Const: [] Distress, appears very uncomfortable., Head: Atraumatic Eyes: Normal Conjunctiva ENT: Normal External Ears, Nose and Mouth. Neck: Full range of motion..~ No meningismus. Resp: Clear to auscultation bilaterally Cardio: Regular rate and rhythm, no murmurs Abd: Soft, non tender, non distended. Normal bowel sounds Skin: No petechiae or rashes Back: No midline or flank tenderness Ext: No cyanosis, or edema Neur: Awake and alert and oriented 3, no focal deficits Psych: Normal Mood and Affect Result Diagram: 12/12/16 1750 12/12/16 1750 Results 24 hrs Laboratory Tests Test 12/12/16 17:50 12/12/16 18:20 White Blood Count 12.210^3/ul Red Blood Count 4.7710^6/ul Hemoglobin 11.0g/dl Hematocrit 34.9% Mean Corpuscular Volume 73.2fl Mean Corpuscular Hemoglobin 23.1pg Mean Corpuscular Hemoglobin Concent 31.5g/dl Red Cell Distribution Width 16.6% Platelet Count 67454^3/UL Mean Platelet Volume fl Neutrophils % 64.4% Lymphocytes % 24.1% Monocytes % 7.9% Eosinophils % 1.5% Basophils % 0.8% Nucleated Red Blood Cells % 0.0/100WBC Neutrophils # 7.810^3/ul Lymphocytes # 2.910^3/ul Monocytes # 1.010^3/ul Eosinophils # 0.210^3/ul Basophils # 0.110^3/ul Nucleated Red Blood Cells # 0.010^3/ul Sodium Level 146mmol/L Potassium Level 3.4mmol/L Chloride Level 112mmol/L Carbon Dioxide Level 20mmol/L Anion Gap 17 Blood Urea Nitrogen 16mg/dl Creatinine 1.14mg/dl Glucose Level 151mg/dl Calcium Level 8.7mg/dl Total Bilirubin 0.0mg/dl Direct Bilirubin 0.00mg/dl Indirect Bilirubin 0.0mg/dl Aspartate Amino Transf (AST/SGOT) 17IU/L Alanine Aminotransferase (ALT/SGPT) 37IU/L Alkaline Phosphatase 53IU/L Total Protein 6.6g/dl Albumin 3.7g/dl Globulin 2.90g/dl Albumin/Globulin Ratio 1.27 Lipase 81U/L Urine Color YELLOW Urine Clarity SLIGHTLY CLOUDY Urine pH 5.0 Urine Specific [place] 1.016 Urine Ketones NEGATIVEmg/dL Urine Nitrite NEGATIVEmg/dL Urine Bilirubin NEGATIVEmg/dL Urine Urobilinogen NEGATIVEmg/dL Urine Leukocyte Esterase 2+Preeti/ul Urine Microscopic RBC 35/HPF Urine Microscopic WBC 25/HPF Urine Bacteria FEW/HPF Urine Hemoglobin 2+mg/dL Urine Glucose 1+mg/dL Urine Total Protein 2+mg/dl Current Medications Medications (Trade) Dose Ordered Sig/Jaison Route PRN Reason Start Time Stop Time Status Last Admin Dose Admin Sodium Chloride (NS) 1,000 ml @ 1,000 mls/hr Q1H STAT IV 12/12/16 17:53 12/12/16 18:52 DC 12/12/16 17:59 Morphine Sulfate (morphine) 4 mg ONCE STAT IV 12/12/16 17:53 12/12/16 17:56 DC 12/12/16 17:59 Ondansetron HCl (Zofran Inj) 4 mg ONCE STAT IV 12/12/16 17:53 12/12/16 17:56 DC 12/12/16 17:59 Ketorolac Tromethamine 30 mg 30 mg ONCE STAT IV 12/12/16 17:53 12/12/16 17:56 DC 12/12/16 17:59 Levofloxacin/ Dextrose (Levaquin 750 Mg/ D5W 150 ml (Pmx)) 150 ml @ 100 mls/hr ONCE ONCE IVPB 12/13/16 00:00 12/13/16 01:29 12/13/16 00:24 Morphine Sulfate (morphine) 8 mg ONCE ONCE IV 12/13/16 00:30 12/13/16 00:31 DC 12/13/16 00:25 Procedures/MDM Pyelonephritis failed outpatient treatment with current large renal stone. Unknown if this stone is the source of infection however also has significant pain. He was given normal saline as well as multiple doses of morphine order to control his pain. Is also given Toradol. No signs of acute renal failure hydronephrosis. Patient does have leukocytosis. Vital signs stable. Spoke with Dr. Felix who will be admitting the patient. I gave him 150 mg of Levaquin. Cultures are pending. Spoke with Dr. Mcneal will be admitting to the medical surgical floor Renal ultrasound interpretation: Large renal calculus with no signs of hydronephrosis on either side. Departure Diagnosis: Primary Impression: Left flank pain Additional Impressions: Pyelonephritis Renal stone Condition: Stable Patient Instructions: Pyelonephritis, Male (Adult) Additional Instructions: Call your primary care doctor TOMORROW for an appointment during the next 1-2 days.See the doctor sooner or return here if your condition worsens before your appointment time. ONEL HECTOR DO Dec 13, 2016 00:10
[2016-12-13] MEDS ORDERED: morphine 10 MG INJ IV ONE (00:30)
[2016-12-13] MEDS ORDERED: DEXTROSE 5%-0.45% NACL 1,000 ML IV SCH (01:24)
[2016-12-13] MEDS ORDERED: NACL 0.9% 3 ML SYG IV SCH (01:30)
[2016-12-13] MEDS ORDERED: ACETAMINOPHEN 325 MG TAB PO PRN (01:30)
[2016-12-13] MEDS ORDERED: DOCUSATE SODIUM 100 MG CAP PO PRN (01:30)
[2016-12-13] MEDS ORDERED: ONDANSETRON (ODT) 4 MG TAB ODT PRN (01:30)
[2016-12-13] MEDS ORDERED: ONDANSETRON 4 MG INJ IV PRN (01:30)
[2016-12-13] MEDS ORDERED: HYDROCORTISONE 25 MG SUPP PR PRN (01:30)
[2016-12-13] MEDS ORDERED: FAMOTIDINE 20 MG TAB PO ONE (01:30)
[2016-12-13] MEDS ORDERED: ACETAMINOPHEN 500 MG TAB PO PRN (01:30)
[2016-12-13 01:51] VITALS: PULSE 72; TEMP 97.8
[2016-12-13 02:15] VITALS: Ht 172.7 cm; Wt 91.0 kg
[2016-12-13] MEDS ORDERED: morphine 10 MG INJ IV PRN (03:00)
[2016-12-13] MEDS ORDERED: morphine 2 MG INJ IV PRN (03:00)
[2016-12-13] MEDS ORDERED: morphine 4 MG/ML VIAL IV PRN (03:00)
[2016-12-13] MEDS: NS + KCL 20 MEQ 1,000 ML IV SCH ×2 (03:18→14:44)
[2016-12-13 07:23] VITALS: BP 119/72; RESP 18
[2016-12-13] MEDS: metFORMIN 500 MG TAB PO SCH ×2 (08:03→17:50)
[2016-12-13] MEDS ORDERED: FAMOTIDINE 20 MG TAB PO SCH (09:00)
[2016-12-13] MEDS ORDERED: ENOXAPARIN 40 MG/0.4 ML SYG SC SCH (09:00)
[2016-12-13] MEDS ORDERED: TAMSULOSIN (SR) 0.4 MG CAP PO SCH (09:00)
--- NOTE | 2016-12-13 10:29 | HP ---
Date/Time of Note Date/Time of Note DATE: 12/13/16 TIME: 10:27 Assessment/Plan VTE Prophylaxis VTE Prophylaxis Intervention: LMWH Lines/Catheters IV Catheter Type (from [facility]): Peripheral IV Urinary Cath still in place: No Assessment/Plan Assessment/Plan [facility] 46yo man treated as an outpatient with ciprofloxacin for urinary tract infection , now presenting with possible pyelonephritis. Borderline WBC elevation, with no fever here. Feeling great today. CT scan has repeatedly shown a 2.5cm stone in the left renal pelvis. But the current symptoms are emanating from the right kidney and ureter. No residual hydronephrosis on ultrasound last night. * Place under med/surg observation * Continue levofloxacin * Full-Code * Lovenox for DVT prophylaxis * Famotidine PO for GI protection. John Tejeda MD PhD [phone] HPI/ROS Admit Date/Time Admit Date/Time Dec 13, 2016 at 01:14 Hx of Present Illness 46-year-old patient of Dr. Haim Pearce with a history of 2.5cm left renal stone treated unsuccessfully with lithotripsy. He is Tajik-speaking, and his assisted with translation at his bedside. He developed severe right-sided flank pain last night, with nausea and emesis. The pain progressed to the right lower abdomen and supra-pubic area, and he complained about mild discomfort with urination. His called 911, and he was transported by ambulance last night to the [facility] ER. He has had numerous ER visits over a four-month period. He was admitted to [facility] in early August and underwent JJ stent placement to help relieve obstruction and mild to moderate hydronephrosis. Followed by Dr. Shah as an outpatient, with unsuccessful lithotripsy. He was evaluated in the [facility] ER on 11/25/16, and then in the [facility] ER on 11/26/16. He also underwent stent placement and laser stone pulverization procedure earlier this month at [facility], according to the patient. He was receiving daily IV antibiotics at home for the past week to treat possible pyelonephritis. ROS Feeling well now, with no pain. No headache, chest discomfort, dyspnea, or nausea now. PMH/Family/Social Past Medical History Medical History: diabetes (Diagnosed 18 months ago, according to his .), renal disease Past Surgical History Past Surgical Hx: no surgical history (other than the current kidney stone- related procedures) Social History Moved here from [facility], with his and four children four years ago. 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 Smoking Status: Current every day smoker Exam/Review of Systems Vital Signs Vitals Vital Signs Date Time Temp Pulse Resp B/P Pulse Ox O2 Delivery O2 Flow Rate FiO2 12/13/16 07:23 98.1 85 18 119/72 95 12/13/16 01:51 Room Air Intake and Output 12/12/16 12/12/16 12/13/16 15:00 23:00 07:00 Intake Total 170 ml Balance 170 ml Exam Constitutional: alert, oriented, well developed Psych: nl mood/affect, no complaints, No anxiety, No confusion, No depression Head: atraumatic, normocephalic Eyes: EOMI, PERRL, nl conjunctiva, nl sclera ENMT: mucosa pink and moist Neck: non-tender, supple, No bruits, No jvd, No masses, No nuchal rigidity, No thyromegaly Respiratory: clear to auscultation, normal air movement, No congested cough, No crackles/rales, No diminished breath sounds, No intercostal retraction, No labored breathing, No respirations, No wheezing Cardiovascular: nl pulses, regular rate and rhythm, No bruits, No diastolic murmur, No edema, No gallop, No irregular rhythm, No jugular venous distention (JVD), No murmurs/extra sounds, No rub, No systolic murmur Gastrointestinal: bowel sounds, nl liver, spleen, non-tender, soft, No ascites, No distended, No firm, No hepatomegaly, No mass, No rebound or guarding, No splenomegaly, No surgical scars, No tender Genitourinary - Male: No CVA tenderness Musculoskeletal: nl extremities to inspection, nl gait and stance, No joint tenderness, No muscle tone, No muscle weakness, No range of motion, No spine non-tender, No swelling Extremities: calf tenderness (mild left proximal calf tenderness, but no nodularity), normal pulses, No clubbing, No cyanosis, No edema, No palpable cord, No pitting pedal edema 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, nl mental status, nl speech, nl strength, reflexes (normal, with downgoing toes) Lymph: nl lymph nodes Labs Result Diagram: 12/12/16174912/12/161749 Medications Medications Current Medications Acetaminophen (Tylenol Tab) 500 mg Q4H PRN PO PAIN AND OR ELEVATED TEMP; Start 12/13/16 at 01:30 Hydrocortisone (Anusol-Hc Supp) 10 mg BID PRN KY HEMORROID PAIN/ITCHING; Start 12/13/16 at 01:30 Ondansetron HCl (Zofran Odt) 4 mg Q6H PRN ODT NAUSEA AND/OR VOMITING; Start at 01:30 Tamsulosin HCl 0.4 mg 0.4 mg BID PO Last administered on 12/13/16 08:03; Admin Dose 0.4 MG; Start 12/13/16 at 09:00 Potassium Chloride/Sodium Chloride (NS-KCl 20 Meq) 1,000 ml @ 75 mls/hr [id number] IV Last administered on 12/13/16 03:18; Admin Dose 75 MLS/HR; Start 12/13/16 at 01:24 Docusate Sodium (Colace) 100 mg Q12H PRN PO CONSTIPATION; Start 12/13/16 at 01 :30 Famotidine (Pepcid) 20 mg Q12 PO Last administered on 12/13/16 08:03; Admin Dose 20 MG; Start 12/13/16 at 09:00 Enoxaparin Sodium (Lovenox) 40 mg DAILY SC Last administered on 12/13/16 08: 19; Admin Dose 40 MG; Start 12/13/16 at 09:00 Morphine Sulfate (morphine) 2 mg Q6H PRN IV pain level 1-3; Start 12/13/16 at 03:00 Morphine Sulfate (morphine) 4 mg Q6H PRN IV pain level 4-6; Start 12/13/16 at 03:00 Morphine Sulfate (morphine) 6 mg Q6H PRN IV pain level 7-10; Start 12/13/16 at 03:00 NAI TEJEDA M.D. Dec 13, 2016 10:28
[2016-12-13 14:15] VITALS: BP 125/72; RESP 18
--- NOTE | 2016-12-13 16:56 | PDOCDIS ---
Discharge Instructions DIAGNOSIS Discharge Diagnosis Nephrolithiasis (right) CONDITION Patient Condition: Good HOME CARE INSTRUCTIONS: Diet Instructions: RegularSpecial Diet: REGULAR ACTIVITY: Activity Restrictions: Slowly Increase Activity FOLLOW UP/APPOINTMENTS Follow-up Plan With Krystal Duong MD (urology); appointment on 12/15/16 NAI SELLERS M.D. Dec 13, 2016 16:56
[2016-12-13] MEDS ORDERED: LEVO500S PO (16:58)
[2016-12-13] MEDS ORDERED: BACI1TAB3 PO (16:58)
--- NOTE | 2016-12-13 17:03 | DS ---
Date/Time of Note Date/Time of Note DATE: 12/13/16 TIME: 16:59 Discharge Summary Admission/Discharge Info Admit Date/Time Dec 13, 2016 at 01:14 Discharge Date/Time Dec 13, 2016 Discharge Diagnosis Nephrolithiasis (right) Patient Condition: Good Procedures Abdominal ultrasound Hx of Present Illness 46-year-old patient of Dr. Haim Pearce with a history of 2.5cm left renal stone treated unsuccessfully with lithotripsy. He is Croatian-speaking, and his assisted with translation at his bedside. He developed severe right-sided flank pain last night, with nausea and emesis. The pain progressed to the right lower abdomen and supra-pubic area, and he complained about mild discomfort with urination. His called 911, and he was transported by ambulance last night to the [facility] ER. He has had numerous ER visits over a four-month period. He was admitted to [facility] in early August and underwent JJ stent placement to help relieve obstruction and mild to moderate hydronephrosis. Followed by Dr. Shah as an outpatient, with unsuccessful lithotripsy. He was evaluated in the [facility] ER on 11/25/16, and then in the [facility] ER on 11/26/16. He also underwent stent placement and laser stone pulverization procedure earlier this month at [facility], according to the patient. He was receiving daily IV antibiotics at home for the past week to treat possible pyelonephritis. Hospital Course He received IV hydration, and felt dramatically better today. He was afebrile while in the hospital, and eating well with no nausea. He had a borderline hypochromic microcytic anemia, and borderline elevated sodium (146). But his labs were otherwise normal, with normal renal function. He was being treated as an outpatient with IV antibiotics for refractory urinary tract infection. I suggested taking seven days of levofloxacin and stopping the IV cipro, with a twice daily probiotic supplement. He has an appointment Thursday (12/15/16) with a new urologist. Home Meds Active Scripts Bacillus Coagulans (Probiotic) 1 Each Tab.chew, 1 EACH PO BID for 30 Days, TAB.CHEW Prov:NAI SELLERS M.D. 12/13/16 Levofloxacin (Levofloxacin) 500 Mg/20 Ml Solution, 500 MG PO DAILY for 7 Days, ML Prov:NAI SELLERS M.D. 12/13/16 Tamsulosin Hcl* (Flomax*) 0.4 Mg Cap.er.24h, 0.4 MG PO BID, #30 CAP Prov:DOUGIE KATE PA-C 11/14/16 Ondansetron (Ondansetron Odt) 4 Mg Tab.rapdis, 4 MG PO Q6H Y for NAUSEA AND/OR VOMITING, #10 TAB Prov:GREGORY SIMS 10/15/16 Hydrocortisone Acetate (Anusol-Hc) 25 Mg Supp.rect, 1 SUPP [place] BID Y for HEMORROID PAIN/ITCHING, #12 SUPP.RECT Prov:RUFINO RIZZO PA-C 08/18/16 Reported Medications Omeprazole* (Omeprazole*) 40 Mg Capsule.dr, 40 MG PO DAILY, #30 CAP 08/28/16 Metformin* (Glucophage*) 500 Mg Tab, 500 MG PO WITH BREAKFAST DINNE, #30 TAB 08/28/16 Acetaminophen* (Acetaminophen*) 500 MG Extra Strength Tablet, 500 MG PO Q4H Y for PAIN AND OR ELEVATED TEMP, TAB 08/28/16 Discontinued Scripts Ondansetron (Zofran Odt) 4 Mg Tab.rapdis, 4 MG PO Q6, #10 Prov:ONEL HECTOR DO 12/12/16 Naproxen* (Naproxen*) 500 Mg Tablet, 500 MG PO BID Y for PAIN, #14 TAB Prov:ONEL HECTOR DO 12/12/16 Hydrocodone/Acetaminophen ([place] 5-325 Tablet) 1 Each Tablet, 1 EACH PO Q6, #20 TAB Prov:ONEL HECTOR DO 12/12/16 Nitrofurantoin Monohyd Macrocr* (Macrobid*) 100 Mg Capsr, 100 MG PO HS for 7 Days, CAP Prov:ONEL HECTOR DO 12/12/16 Levofloxacin* (Levaquin*) 500 Mg Tablet, 500 MG PO DAILY for 7 Days, TAB Prov:ONEL HECTOR DO 12/12/16 Hydrocodone/Acetaminophen ([place] 10-325 Tablet) 1 Each Tablet, 1 TAB PO Q6H Y for PAIN, #12 TAB Prov:TRISH GARCÍA MD 11/25/16 Ibuprofen* (Motrin*) 600 Mg Tab, 600 MG PO Q6H Y for PAIN AND OR ELEVATED TEMP, #30 TAB Prov:TRISH GARCÍA MD 11/25/16 Ibuprofen* (Motrin*) 800 Mg Tab, 800 MG PO Q6H Y for PAIN AND OR ELEVATED TEMP, #30 TAB Prov:SUNITA YAN NP 11/18/16 Oxycodone HCl/Acetaminophen (Percocet 5-325 mg Tablet) 1 Each Tablet, 1 EACH PO BID, #15 TAB Prov:DOUGIE KATE PA-C 11/14/16 Ciprofloxacin Hcl* (Ciprofloxacin Hcl*) 500 Mg Tablet, 500 MG PO BID for 7 Days , TAB Prov:DOUGIE KATE PA-C 11/14/16 Hydrocodone/Acetaminophen ([place] 10-325 Tablet) 1 Each Tablet, 1 TAB PO Q6H Y for PAIN, #20 TAB Prov:GREGORY SIMS 10/15/16 Ibuprofen* (Motrin*) 800 Mg Tab, 800 MG PO Q6H Y for PAIN AND OR ELEVATED TEMP, #30 TAB Prov:SUNITA YAN NP 09/25/16 Hydrocodone/Acetaminophen ([place] 5-325 Tablet) 1 Each Tablet, 1 EACH PO Q6 Y for PAIN, #20 TAB Prov:ARACELY SELLERS PA-C 09/18/16 Cephalexin* (Cephalexin*) 500 Mg Capsule, 500 MG PO TID, #42 CAP Prov:ARACELY SELLERS PA-C 09/18/16 Hydrocodone/Acetaminophen ([place] 5-325 Tablet) 1 Each Tablet, 1 TAB PO Q6H Y for PAIN, #14 TAB Prov:RUFINO RIZZO PA-C 08/18/16 Follow-up Plan With Krystal Duong MD (urology); appointment on 12/15/16 Primary Care Provider Yessi Pearce Time spent on discharge: > 30 minutes Pending Labs Laboratory Tests Test 12/12/16 17:50 12/12/16 18:20 12/13/16 07:54 12/13/16 11:52 White Blood Count 12.210^3/ul (4.8-10.8) Red Blood Count 4.7710^6/ul (4.70-6.10) Hemoglobin 11.0g/dl (14.0-18.0) Hematocrit 34.9% (42.0-52.0) Mean Corpuscular Volume 73.2fl (82.0-101.0) Mean Corpuscular Hemoglobin 23.1pg (29.0-33.0) Mean Corpuscular Hemoglobin Concent 31.5g/dl (32.0-37.0) Red Cell Distribution Width 16.6% (11.5-14.5) Platelet Count 70507^3/UL (140-415) Mean Platelet Volume fl (7.4-10.4) Neutrophils % 64.4% (39.0-77.0) Lymphocytes % 24.1% (15.0-51.0) Monocytes % 7.9% (0.0-11.0) Eosinophils % 1.5% (0.0-7.0) Basophils % 0.8% (0.0-2.0) Nucleated Red Blood Cells % 0.0/100WBC (0.0-0.0) Neutrophils # 7.810^3/ul (1.6-7.5) Lymphocytes # 2.910^3/ul (0.8-2.9) Monocytes # 1.010^3/ul (0.3-0.9) Eosinophils # 0.210^3/ul (0.0-0.5) Basophils # 0.110^3/ul (0.0-0.1) Nucleated Red Blood Cells # 0.010^3/ul (0.0-0.0) Sodium Level 146mmol/L (135-144) Potassium Level 3.4mmol/L (3.5-5.1) Chloride Level 112mmol/L (97-110) Carbon Dioxide Level 20mmol/L (21-31) Anion Gap 17 (8-16) Blood Urea Nitrogen 16mg/dl (7-20) Creatinine 1.14mg/dl (0.61-1.24) Glucose Level 151mg/dl (70-220) Calcium Level 8.7mg/dl (8.4-10.2) Total Bilirubin 0.0mg/dl (0.2-1.3) Direct Bilirubin 0.00mg/dl (0.00-0.20) Indirect Bilirubin 0.0mg/dl (0-1.1) Aspartate Amino Transf (AST/SGOT) 17IU/L (15-46) Alanine Aminotransferase (ALT/SGPT) 37IU/L (13-69) Alkaline Phosphatase 53IU/L (42-121) Total Protein 6.6g/dl (6.1-8.1) Albumin 3.7g/dl (3.3-4.9) Globulin 2.90g/dl (1.3-3.2) Albumin/Globulin Ratio 1.27 Lipase 81U/L (23-300) Urine Color YELLOW (YELLOW) Urine Clarity SLIGHTLY CLOUDY (CLEAR) Urine pH 5.0 (5.0-9.0) Urine Specific [place] 1.016 (1.003-1.030) Urine Ketones NEGATIVEmg/dL (NEGATIVE) Urine Nitrite NEGATIVEmg/dL (NEGATIVE) Urine Bilirubin NEGATIVEmg/dL (NEGATIVE) Urine Urobilinogen NEGATIVEmg/dL (NEGATIVE) Urine Leukocyte Esterase 2+Preeti/ul (NEGATIVE) Urine Microscopic RBC 35/HPF (0-5) Urine Microscopic WBC 25/HPF (0-5) Urine Bacteria FEW/HPF (NONE SEEN) Urine Hemoglobin 2+mg/dL (NEGATIVE) Urine Glucose 1+mg/dL (NEGATIVE) Urine Total Protein 2+mg/dl (NEGATIVE) Bedside Glucose 210mg/dL (70-220) 163mg/dL (70-220) NAI SELLERS M.D. Dec 13, 2016 17:03
== END 2016-12-13 19:05 | disposition home or self-care (01) | DRG 694 ==
LOC: E/R 16:49 → MS2 12-13 01:14
PROVIDERS: ADMIT Internal Medicine; ATTEND Internal Medicine
DX: N20.0 Calculus of kidney (principal); E11.9 Type 2 diabetes mellitus without complications; D64.9 Anemia, unspecified; F17.210 Nicotine dependence, cigarettes, uncomplicated; Z79.84 Long term (current) use of oral hypoglycemic drugs
CPT/HCPCS: 36415; 76775; 80053; 81001; 82962; 83690; 85025; 87086; 96365; 96375; 96376; J1650; J3480; J7030; J7042

== ENCOUNTER → 2017-02-19 | Emergency (ER) | END | disposition home or self-care (01) ==

== ENCOUNTER 2017-10-05 01:10 | Emergency (ER) | END 2017-10-05 02:28 | disposition home or self-care (01) ==

== ENCOUNTER 2018-04-09 23:27 | Emergency (ER) | payer OTHER ==
[~2018-04-09] VITALS: Ht 172.7 cm; Wt 110.3 kg
[~2018-04-09 23:27] MED LIST changes: +ACET500C5 PO; +BACI1TAB3 PO; -CEPH500C PO; -CIPR500T4 PO; +HYDR-4011 PO; -HYDR-902 PO; -HYDR-906 PO; -IBUP-1542 PO; -IBUP800T25 PO; +LEVO500S PO; +METF-849 PO; -METF500T4 PO; -OXYC-279 PO
[2018-04-09 23:36] VITALS: Ht 172.7 cm; Wt 110.3 kg
[2018-04-10] MEDS ORDERED: morphine 4 MG/ML VIAL IV STA (01:31)
[2018-04-10] MEDS ORDERED: ONDANSETRON 4 MG INJ IV STA (01:31)
--- NOTE | 2018-04-10 01:31 | ERD ---
ER Documentation Chief Complaint Chief Complaint low back/sera knee pains since this AM,no injury HPI This is a 48-year-old male who presents here in emergency department with complaints of lower back pain that started today. Pain was described as sharp and nonradiating. Stated that he has history of left-sided kidney stone with s tent placement and lithotripsy history. Also complains of left knee pain that is on and off for about a month but got worse today and his swelling has increased today. Denies injury. Past medical history: Diabetes, left-sided kidney stone. Surgical history: Lithotripsy and stent placement. Medication: Metformin. ROS All systems reviewed and are negative except as per history of present illness. Medications Home Meds Active Scripts Metaxalone* (Skelaxin*) 800 Mg Tablet, 800 MG PO TID PRN for MUSCLE SPASMS, #20 TAB Prov:PASILABANSORAYAAR F 04/10/18 Ibuprofen* (Motrin*) 800 Mg Tab, 800 MG PO Q6H PRN for PAIN AND OR ELEVATED TEMP, #30 TAB Prov:SORAYA MARTINEZAR F 04/10/18 Acetaminophen* (Tylophen*) 500 Mg Capsule, 1 CAP PO Q6H PRN for PAIN AND OR ELEVATED TEMP, #20 CAP Prov:ESTEPHANIA WHEELER NP 10/05/17 Hydrocodone/Acetaminophen ([place] 5-325 Tablet) 1 Each Tablet, 1 EACH PO Q8 for 5 Days, #15 TAB Prov:POLY TRIVEDI DO 02/19/17 Bacillus Coagulans (Probiotic) 1 Each Tab.chew, 1 EACH PO BID for 30 Days, TAB.CHEW Prov:NAI SELLERS M.D. 12/13/16 Levofloxacin (Levofloxacin) 500 Mg/20 Ml Solution, 500 MG PO DAILY for 7 Days, ML Prov:NAI SELLERS M.D. 12/13/16 Tamsulosin Hcl* (Flomax*) 0.4 Mg Cap.er.24h, 0.4 MG PO BID, #30 CAP Prov:DOUGIE KATE PA-C 11/14/16 Ondansetron (Ondansetron Odt) 4 Mg Tab.rapdis, 4 MG PO Q6H PRN for NAUSEA AND/OR VOMITING, #10 TAB Prov:GREGORY SIMS 10/15/16 Hydrocortisone Acetate (Anusol-Hc) 25 Mg Supp.rect, 1 SUPP WI BID PRN for HEMORROID PAIN/ITCHING, #12 SUPP.RECT Prov:RUFINO RIZZO PA-C 08/18/16 Reported Medications Omeprazole* (Omeprazole*) 40 Mg Capsule.dr, 40 MG PO DAILY, #30 CAP 08/28/16 Metformin* (Glucophage*) 500 Mg Tab, 500 MG PO WITH BREAKFAST DINNE, #30 TAB 08/28/16 Acetaminophen* (Acetaminophen*) 500 MG Extra Strength Tablet, 500 MG PO Q4H PRN for PAIN AND OR ELEVATED TEMP, TAB 08/28/16 Allergies Allergies: Coded Allergies: No Known Allergy (Unverified , 10/15/16) PMhx/Soc History of Surgery: Yes (kidney stone removal) Anesthesia Reaction: No Hx Neurological Disorder: No Hx Respiratory Disorders: No Hx Cardiac Disorders: No Hx Psychiatric Problems: No Hx Miscellaneous Medical Probl: Yes (kidney stones) Hx Alcohol Use: Yes (SOMETIMES) Hx Substance Use: No Hx Tobacco Use: Yes Physical Exam Vitals Vital Signs Date Temp Pulse Resp B/P (MAP) Pulse Ox O2 O2 Flow FiO2 Time Delivery Rate 04/10/18 97.7 79 18 110/64 100 Room Air 05:50 (79) 04/09/18 98.9 110 18 147/77 96 23:36 (100) Physical Exam Const: No acute distress Head: Atraumatic Eyes: Normal Conjunctiva ENT: Normal External Ears, Nose and Mouth. Neck: Full range of motion. No meningismus. Resp: Clear to auscultation bilaterally Cardio: Regular rate and rhythm, no murmurs Abd: Soft, non tender, non distended. Normal bowel sounds Skin: No petechiae or rashes Back: No midline or flank tenderness. Bilateral CVA tenderness. Ext: No cyanosis. Left knee has swelling and tenderness to palpation with no obvious deformity. Left calf tenderness noted. Left pedal pulses within normal limits. Neur: Awake and alert. No neurological deficits.. Psych: Normal Mood and Affect Result Diagram: 04/10/18 0250 04/10/18 0240 Results 24 hrs Laboratory Tests Test 04/10/18 02:40 04/10/18 02:50 04/10/18 03:38 Prothrombin Time 12.4 Sec Prothrombin Time Ratio 1.0 INR International 0.91 Normalized Ratio Activated Partial Thromboplast 30.4 Sec Time Sodium Level 137 mmol/L Potassium Level 4.3 mmol/L Chloride Level 105 mmol/L Carbon Dioxide Level 20 mmol/L Anion Gap 12 Blood Urea Nitrogen 19 mg/dl Creatinine 1.00 mg/dl Est Glomerular Filtrat > 60 mL/min Rate mL/min Glucose Level 164 mg/dl Calcium Level 9.5 mg/dl Total Bilirubin 0.1 mg/dl Direct Bilirubin 0.00 mg/dl Indirect Bilirubin 0.1 mg/dl Aspartate Amino 32 IU/L Transf (AST/SGOT) Alanine 32 IU/L Aminotransferase (ALT/SGPT) Alkaline Phosphatase 53 IU/L Troponin I < 0.012 ng/ml Total Protein 7.7 g/dl Albumin 4.0 g/dl Globulin 3.70 g/dl Albumin/Globulin Ratio 1.08 Amylase Level 88 U/L Lipase 101 U/L White Blood Count 8.3 10^3/ul Red Blood Count 5.59 10^6/ul Hemoglobin 13.0 g/dl Hematocrit 42.4 % Mean Corpuscular Volume 75.8 fl Mean Corpuscular Hemoglobin 23.3 pg Mean Corpuscular 30.7 g/dl Hemoglobin Concent Red Cell Distribution Width 20.0 % Platelet Count 147 10^3/UL Mean Platelet Volume fl Immature Granulocytes % 1.200 % Neutrophils % 53.8 % Lymphocytes % 33.6 % Monocytes % 8.9 % Eosinophils % 1.8 % Basophils % 0.7 % Nucleated Red Blood Cells % 0.0 /100WBC Immature Granulocytes # 0.100 10^3/ul Neutrophils # 4.5 10^3/ul Lymphocytes # 2.8 10^3/ul Monocytes # 0.7 10^3/ul Eosinophils # 0.2 10^3/ul Basophils # 0.1 10^3/ul Nucleated Red Blood Cells # 0.0 10^3/ul Urine Color YELLOW Urine Clarity CLEAR Urine pH 5.0 Urine Specific [place] 1.024 Urine Ketones NEGATIVE mg/dL Urine Nitrite NEGATIVE mg/dL Urine Bilirubin NEGATIVE mg/dL Urine Urobilinogen NEGATIVE mg/dL Urine Leukocyte Esterase NEGATIVE Preeti/ul Urine Hemoglobin NEGATIVE mg/dL Urine Glucose 1+ mg/dL Urine Total Protein NEGATIVE mg/dl Current Medications Medications Dose Sig/Jaison Start Time Status Last (Trade) Ordered Route PRN Stop Time Admin Dose Reason Admin Morphine 4 mg ONCE STAT 04/10/18 DC 04/10/18 Sulfate IV 01:31 03:00 (morphine) 04/10/18 01:41 Ondansetron 4 mg ONCE STAT 04/10/18 DC 04/10/18 HCl (Zofran IV 01:31 03:00 Inj) 04/10/18 01:41 Ketorolac 30 mg ONCE STAT 04/10/18 DC 04/10/18 Tromethamine IV 02:42 03:02 (Toradol) 04/10/18 02:43 Procedures/MDM Diagnostic tests: EKG: Normal sinus rhythm with a ventricular rate of 82 bpm. No STEMI. Read by supervising physician. CT of the abdomen and pelvis without contrast: 1. No obstructive uropathy. 2. Interval resolution of previously seen left obstructive uropathy. 3. Fatty infiltration of the liver is again seen, without significant acid changer interval. 4. No mass, lymphadenopathy, or focal acute inflammatory process is i dentified. X-ray of the left knee: No definite acute or aggressive appearing osseous abnormality. There appears to be a small left knee joint effusion that is nonspecific, the differential for which could include the possibility of infection in the appropriate clinical setting, which clinical correlation is recommended to guide further workup. Treatment: Toradol. Morphine. Zofran. Re-evaluation: Denies pain. Differential diagnosis I have low suspicion for AMI, AAA, obstructing kidney stone, DVT, septic stone, appendicitis, pancreatitis, cholecystitis. Final diagnosis: Back pain. Arthritis. Prescription: Motrin. Skelaxin. Follow-up with PCP in the next 24-48 hours. Come back here in the emergency department for any new symptoms or any worsening symptoms. All questions and concerns were answered. Patient and family members verbalized understanding and agreed with plan of care. Hemodynamically stable on discharge. Departure Diagnosis: Primary Impression: Back pain Additional Impressions: Injury of back Chest wall pain Arthritis Condition: Stable Additional Instructions: Follow-up with PCP in the next 24-48 hours. Come back here in the emergency department for any new symptoms or any worsening symptoms. CHAITANYA MARTINEZ Apr 10, 2018 01:31
[2018-04-10] MEDS ORDERED: KETOROLAC 30 MG INJ IV STA (02:42)
[2018-04-10] MEDS ORDERED: IBUP800T48 PO (05:38)
[2018-04-10] MEDS ORDERED: META-121 PO (05:39)
[2018-04-10 05:50] VITALS: BP 110/64; PULSE 79; RESP 18
== END 2018-04-10 05:50 | disposition home or self-care (01) ==
LOC: FTE 23:27
DX: S39.92XA Unspecified injury of lower back, initial encounter (principal); S29.001A Unspecified injury of muscle and tendon of front wall of thorax, initial encounter; M19.90 Unspecified osteoarthritis, unspecified site; E11.9 Type 2 diabetes mellitus without complications; R07.9 Chest pain, unspecified; X58.XXXA Exposure to other specified factors, initial encounter; Y92.9 Unspecified place or not applicable; Z79.84 Long term (current) use of oral hypoglycemic drugs; Z87.891 Personal history of nicotine dependence
CPT/HCPCS: 71046; 73562; 74176; 80053; 81003; 82150; 83690; 84484; 85025; 85610; 85730; 93005; 93971; 96374; 96375; J1885; J2270; J2405; Z7502

== ENCOUNTER 2018-06-08 23:57 | Emergency (ER) | payer OTHER ==
[~2018-06-08] VITALS: Ht 172.7 cm; Wt 108.2 kg
[~2018-06-08 23:57] MED LIST changes: +IBUP800T48 PO; +META-121 PO
[2018-06-09 00:05] VITALS: Ht 172.7 cm; Wt 108.2 kg
[2018-06-09] MEDS ORDERED: ONDANSETRON 4 MG INJ IV STA (00:08)
[2018-06-09] MEDS ORDERED: SOD CHLORIDE 0.9% 1,000 ML IV STA (00:08)
[2018-06-09] MEDS ORDERED: morphine 4 MG/ML VIAL IV STA (00:08)
[2018-06-09] MEDS ORDERED: ONDA4TAB14 PO (02:01)
[2018-06-09] MEDS ORDERED: TRAM50TA2 PO (02:01)
[2018-06-09 02:07] VITALS: BP 105/73; PULSE 77; RESP 18
--- NOTE | 2018-07-05 21:01 | ERD ---
ER Documentation Chief Complaint Chief Complaint RUQ sharp pain started this morning,nausea HPI This a 48-year-old comes in with right upper quadrant abdominal pain started this morning. Associated mild nausea. No fevers no chills. Pain is mild to moderate intensity no exacerbating relieving factors. No other current complaints. ROS All systems reviewed and are negative except as per history of present illness. Medications Home Meds Active Scripts Ondansetron (Ondansetron Odt) 4 Mg Tab.rapdis, 4 MG PO Q6H PRN for NAUSEA AND/OR VOMITING, #10 TAB Prov:GREGORY SIMS 06/09/18 Tramadol HCl (Tramadol HCl) 50 Mg Tablet, 50 MG PO Q4 PRN for PAIN, #20 TAB Prov:GREGORY SIMS. 06/09/18 Ibuprofen* (Motrin*) 800 Mg Tab, 800 MG PO Q6H PRN for PAIN AND OR ELEVATED TEMP, #30 TAB Prov:CHAITANYA MARTINEZ 04/10/18 Acetaminophen* (Tylophen*) 500 Mg Capsule, 1 CAP PO Q6H PRN for PAIN AND OR ELEVATED TEMP, #20 CAP Prov:ESTEPHANIA WHEELER NP 10/05/17 Reported Medications Omeprazole* (Omeprazole*) 40 Mg Capsule.dr, 40 MG PO DAILY, #30 CAP 08/28/16 Metformin* (Glucophage*) 500 Mg Tab, 500 MG PO WITH BREAKFAST DINNE, #30 TAB 08/28/16 Allergies Allergies: Coded Allergies: No Known Allergy (Unverified , 06/09/18) PMhx/Soc History of Surgery: Yes (Lithotripsy) Anesthesia Reaction: No Hx Neurological Disorder: No Hx Respiratory Disorders: No Hx Cardiac Disorders: No Hx Psychiatric Problems: No Hx Miscellaneous Medical Probl: Yes (Nephrolithiasis,DM) Hx Alcohol Use: Yes (Occasional) Hx Substance Use: No Hx Tobacco Use: Yes (1 pack/day) Smoking Status: Current every day smoker Physical Exam Physical Exam Const: No acute distress Head: Atraumatic Eyes: Normal Conjunctiva ENT: Normal External Ears, Nose and Mouth. Neck: Full range of motion. No meningismus. Resp: Clear to auscultation bilaterally Cardio: Regular rate and rhythm, no murmurs Abd: Soft, non tender, non distended. Normal bowel sounds Skin: No petechiae or rashes Back: No midline or flank tenderness Ext: No cyanosis, or edema Neur: Awake and alert Psych: Normal Mood and Affect Results 24 hrs Laboratory Tests Test 06/09/18 00:18 White Blood Count 8.9 10^3/ul Red Blood Count 5.68 10^6/ul Hemoglobin 14.0 g/dl Hematocrit 44.8 % Mean Corpuscular Volume 78.9 fl Mean Corpuscular Hemoglobin 24.6 pg Mean Corpuscular Hemoglobin Concent 31.3 g/dl Red Cell Distribution Width 19.1 % Platelet Count 156 10^3/UL Mean Platelet Volume fl Immature Granulocytes % 1.000 % Neutrophils % 62.8 % Lymphocytes % 26.3 % Monocytes % 8.0 % Eosinophils % 1.1 % Basophils % 0.8 % Nucleated Red Blood Cells % 0.0 /100WBC Immature Granulocytes # 0.090 10^3/ul Neutrophils # 5.6 10^3/ul Lymphocytes # 2.4 10^3/ul Monocytes # 0.7 10^3/ul Eosinophils # 0.1 10^3/ul Basophils # 0.1 10^3/ul Nucleated Red Blood Cells # 0.0 10^3/ul Urine Color YELLOW Urine Clarity CLEAR Urine pH 6.0 Urine Specific [place] 1.019 Urine Ketones NEGATIVE mg/dL Urine Nitrite NEGATIVE mg/dL Urine Bilirubin NEGATIVE mg/dL Urine Urobilinogen 1+ mg/dL Urine Leukocyte Esterase NEGATIVE Preeti/ul Urine Hemoglobin NEGATIVE mg/dL Urine Glucose NEGATIVE mg/dL Urine Total Protein NEGATIVE mg/dl Sodium Level 142 mmol/L Potassium Level 4.2 mmol/L Chloride Level 105 mmol/L Carbon Dioxide Level 24 mmol/L Anion Gap 13 Blood Urea Nitrogen 15 mg/dl Creatinine 1.01 mg/dl Est Glomerular Filtrat Rate mL/min > 60 mL/min Glucose Level 159 mg/dl Calcium Level 9.9 mg/dl Total Bilirubin 0.3 mg/dl Direct Bilirubin 0.00 mg/dl Indirect Bilirubin 0.3 mg/dl Aspartate Amino Transf (AST/SGOT) 21 IU/L Alanine Aminotransferase (ALT/SGPT) 27 IU/L Alkaline Phosphatase 58 IU/L Total Protein 7.6 g/dl Albumin 4.2 g/dl Globulin 3.40 g/dl Albumin/Globulin Ratio 1.23 Lipase 87 U/L Current Medications Medications Dose Sig/Jaison Start Time Status Last (Trade) Ordered Route PRN Stop Time Admin Dose Reason Admin Sodium 1,000 ml @ Q1H STAT 06/09/18 DC 06/09/18 Chloride 1,000 mls/hr IV 00:08 00:24 06/09/18 01:07 Morphine 4 mg ONCE STAT 06/09/18 DC 06/09/18 Sulfate IV 00:08 00:22 (morphine) 06/09/18 00:09 Ondansetron 4 mg ONCE STAT 06/09/18 DC 06/09/18 HCl (Zofran IV 00:08 00:22 Inj) 06/09/18 00:09 Procedures/MDM Medical decision making: Patient's gastrointestinal symptoms have stabilized while in the department. No evidence of severe dehydration, sepsis, or surgical abdomen. Extensive discussion with family and patient that occult disease cannot be ruled out. 8 hour recheck for repeat abdominal exam is planned. Departure Diagnosis: Primary Impression: Abdominal pain Abdominal location: unspecified location Qualified Codes: R10.9 - Unspecified abdominal pain Condition: Stable Patient Instructions: Abdominal Pain GREGORY SIMS July 05, 2018 21:01
== END 2018-06-09 02:08 | disposition home or self-care (01) ==
LOC: E/R 23:57
DX: R10.11 Right upper quadrant pain (principal); E11.9 Type 2 diabetes mellitus without complications; F17.210 Nicotine dependence, cigarettes, uncomplicated; R11.0 Nausea; Z79.84 Long term (current) use of oral hypoglycemic drugs
CPT/HCPCS: 76705; 80053; 81003; 83690; 85025; J2270; J2405; J7030; 36415; 96374; 96375

== ENCOUNTER 2018-09-04 22:13 | Emergency (ER) | payer OTHER ==
[~2018-09-04] VITALS: Ht 180.3 cm; Wt 108.9 kg
[~2018-09-04 22:13] MED LIST changes: -ACET-141 PO; -BACI1TAB3 PO; -HYDR-4011 PO; -HYDR25SU23 PR; -LEVO500S PO; -META-121 PO; -TAMS-14 PO; +TRAM50TA2 PO
[2018-09-04 22:15] VITALS: BP 122/81; PULSE 118; RESP 20; Ht 180.3 cm; Wt 108.9 kg
[2018-09-04] MEDS ORDERED: PSEUDOEPHEDRINE 30 MG TAB PO ONE (23:00)
[2018-09-04] MEDS ORDERED: HYDROCODONE/APAP (10/325) TAB PO ONE (23:00)
[2018-09-04] MEDS ORDERED: LORA1TAB54 PO (23:01)
[2018-09-04] MEDS ORDERED: IBUP-1542 PO (23:01)
[2018-09-04] MEDS ORDERED: HYDR-3980 PO (23:01)
[2018-09-04] MEDS ORDERED: AZIT250T PO (23:01)
--- NOTE | 2018-09-04 23:04 | ERD ---
ER Documentation Chief Complaint Chief Complaint R SIDE EAR PAIN FROM ALTITUDE HPI This is a 48-year-old male who has pressure in his right ear [place] he was getting some pressure buildup in his right ear. This is been several hours now started and is getting worse. No loss of hearing or jaw pain or chest pain shortness of breath or blood or discharge from the ear ROS All systems reviewed and are negative except as per history of present illness. Medications Home Meds Active Scripts Ibuprofen* (Motrin*) 600 Mg Tab, 600 MG PO Q8, #30 TAB Prov:JEREMIAH BAILON DO 09/04/18 Hydrocodone/Acetaminophen ([place] 10-325 Tablet) 1 Each Tablet, 1 TAB PO Q6H PRN for PAIN, #8 TAB Prov:JEREMIAH BAILON DO 09/04/18 Azithromycin* (Zithromax*) 250 Mg Tablet, 250 MG PO .ZPACK DIRECTED, #6 TAB TAKE 500 MG (2 TABS) THE FIRST DAY THEN 250 MG (1 TAB) DAYS 2-5 Prov:JEREMIAH BAILON DO 09/04/18 Loratadine/Pseudoephedrine* (Claritin-D* 12 Hr) 5-120 Mg Tab.er.12h, 1 TAB PO Q12, #8 TAB.SA Prov:JEREMIAH BAILON DO 09/04/18 Ondansetron (Ondansetron Odt) 4 Mg Tab.rapdis, 4 MG PO Q6H PRN for NAUSEA AND/OR VOMITING, #10 TAB Prov:GREGORY SIMS 06/09/18 Tramadol HCl (Tramadol HCl) 50 Mg Tablet, 50 MG PO Q4 PRN for PAIN, #20 TAB Prov:GREGORY SIMS 06/09/18 Ibuprofen* (Motrin*) 800 Mg Tab, 800 MG PO Q6H PRN for PAIN AND OR ELEVATED TEMP, #30 TAB Prov:CHAITANYA MARTINEZ 04/10/18 Acetaminophen* (Tylophen*) 500 Mg Capsule, 1 CAP PO Q6H PRN for PAIN AND OR ELEVATED TEMP, #20 CAP Prov:ESTEPHANIA WHEELER NP 10/05/17 Reported Medications Omeprazole* (Omeprazole*) 40 Mg Capsule.dr, 40 MG PO DAILY, #30 CAP 08/28/16 Metformin* (Glucophage*) 500 Mg Tab, 500 MG PO WITH BREAKFAST DINNE, #30 TAB 08/28/16 Allergies Allergies: Coded Allergies: No Known Allergy (Unverified , 06/09/18) PMhx/Soc History of Surgery: Yes (kidney stone) Anesthesia Reaction: No Hx Neurological Disorder: No Hx Respiratory Disorders: No Hx Cardiac Disorders: No Hx Psychiatric Problems: No Hx Miscellaneous Medical Probl: Yes (Nephrolithiasis,DM) Hx Alcohol Use: Yes Hx Substance Use: No Hx Tobacco Use: No FmHx Family History: No coronary disease Physical Exam Vitals Vital Signs Date Temp Pulse Resp B/P (MAP) Pulse Ox O2 O2 Flow FiO2 Time Delivery Rate 09/04/18 98.4 118 20 122/81 97 22:15 (95) Physical Exam Const: No acute distress Head: Atraumatic Eyes: Normal Conjunctiva ENT: Normal External Ears, Nose and Mouth., The right ear has some mild eryt rickey in the distal canal of the EAC the tympanic membrane has a lot of serous fluid behind it is bulging with some mild erythema Neck: Full range of motion. No meningismus. Resp: Clear to auscultation bilaterally Cardio: Regular rate and rhythm, no murmurs Abd: Soft, non tender, non distended. Normal bowel sounds Skin: No petechiae or rashes Back: No midline or flank tenderness Ext: No cyanosis, or edema Neur: Awake and alert Psych: Normal Mood and Affect Results 24 hrs Current Medications Medications Dose Sig/Jaison Start Time Status Last (Trade) Ordered Route PRN Stop Time Admin Dose Reason Admin 60 mg ONCE ONCE 09/04/18 DC Pseudoephedri PO 23:00 ne HCl 09/04/18 23:01 (Sudogest) 1 tab ONCE ONCE 09/04/18 DC Acetaminophen PO 23:00 / 09/04/18 23:01 Hydrocodone Bitart ([place] ()) Procedures/MDM We will give him some [place] and Sudafed here to promote some drainage Departure Diagnosis: Primary Impression: Serous otitis media Chronicity: acute Laterality: left Recurrence: not specified as recurrent Qualified Codes: H65.02 - Acute serous otitis media, left ear Condition: Stable Patient Instructions: Serous Otitis Media Without Infection [Child] JEREMIAH BAILON DO Sep 04, 2018 23:04
== END 2018-09-04 23:40 | disposition home or self-care (01) ==
LOC: E/R 22:13
DX: H65.02 Acute serous otitis media, left ear (principal); E11.9 Type 2 diabetes mellitus without complications; Z79.84 Long term (current) use of oral hypoglycemic drugs
CPT/HCPCS: Z7502; Z7610; 99283

== ENCOUNTER 2018-09-26 08:04 | Emergency (ER) | payer OTHER ==
[~2018-09-26] VITALS: Ht 172.7 cm; Wt 107.8 kg
[~2018-09-26 08:04] MED LIST changes: +AZIT250T PO; +CIPR500T4 PO; +HYDR-3980 PO; +IBUP-1542 PO; +LORA1TAB54 PO; +OXYC-279 PO; +TAMS-14 PO
[2018-09-26 08:05] VITALS: Ht 172.7 cm; Wt 107.8 kg
[2018-09-26] MEDS ORDERED: LACTATED RINGER'S 1,000 ML IV STA (08:39)
[2018-09-26] MEDS ORDERED: KETOROLAC 15 MG INJ IV STA (08:39)
[2018-09-26] MEDS ORDERED: ONDANSETRON 4 MG INJ IV STA (08:39)
--- NOTE | 2018-09-26 09:29 | ERD ---
ER Documentation Chief Complaint Chief Complaint flank pain started last night; hx of kidney stones HPI This is a 48-year-old man complaining of flank and groin pain after passing 2 small sand grain sized stones 2 days ago. Patient has a long history of recurrent urinary tract calculi and has had at least 10 CT scans of abdomen and pelvis. Patient denies hematuria, no fevers or chills, no chest pain or shortness of breath, no dizziness, no loss of consciousness. ROS All systems reviewed and are negative except as per history of present illness. Medications Home Meds Active Scripts Tamsulosin Hcl* (Flomax*) 0.4 Mg Cap.er.24h, 0.4 MG PO QPM, #7 CAP Prov:NADIA AVILA MD 09/26/18 Ciprofloxacin Hcl* (Ciprofloxacin Hcl*) 500 Mg Tablet, 500 MG PO BID for 5 Days, TAB Prov:NADIA AVILA MD 09/26/18 Ibuprofen* (Motrin*) 600 Mg Tab, 600 MG PO Q8 PRN for PAIN AND/OR INFLAMMATION, #30 TAB Prov:NADIA AVILA MD 09/26/18 Oxycodone HCl/Acetaminophen (Percocet 5-325 mg Tablet) 1 Each Tablet, 1 EACH PO TID PRN for PAIN LEVEL 6-10, #15 TAB Prov:NADIA AVILA MD 09/26/18 Ibuprofen* (Motrin*) 600 Mg Tab, 600 MG PO Q8, #30 TAB Prov:JEREMIAH BAILON DO 09/04/18 Hydrocodone/Acetaminophen ([place] 10-325 Tablet) 1 Each Tablet, 1 TAB PO Q6H PRN for PAIN, #8 TAB Prov:JEREMIAH BAILON DO 09/04/18 Azithromycin* (Zithromax*) 250 Mg Tablet, 250 MG PO .CoreyPACK DIRECTED, #6 TAB TAKE 500 MG (2 TABS) THE FIRST DAY THEN 250 MG (1 TAB) DAYS 2-5 Prov:JEREMIAH BAILON DO 09/04/18 Loratadine/Pseudoephedrine* (Claritin-D* 12 Hr) 5-120 Mg Tab.er.12h, 1 TAB PO Q12, #8 TAB.SA Prov:JEREMIAH BAILON DO 09/04/18 Ondansetron (Ondansetron Odt) 4 Mg Tab.rapdis, 4 MG PO Q6H PRN for NAUSEA AND/OR VOMITING, #10 TAB Prov:GREGORY SIMS S. 06/09/18 Tramadol HCl (Tramadol HCl) 50 Mg Tablet, 50 MG PO Q4 PRN for PAIN, #20 TAB Prov:GREGORY SIMS S. 06/09/18 Ibuprofen* (Motrin*) 800 Mg Tab, 800 MG PO Q6H PRN for PAIN AND OR ELEVATED TEMP, #30 TAB Prov:CHAITANYA MARTINEZ 04/10/18 Acetaminophen* (Tylophen*) 500 Mg Capsule, 1 CAP PO Q6H PRN for PAIN AND OR ELEVATED TEMP, #20 CAP Prov:ESTEPHNAIA WHEELER NP 10/05/17 Reported Medications Omeprazole* (Omeprazole*) 40 Mg Capsule.dr, 40 MG PO DAILY, #30 CAP 08/28/16 Metformin* (Glucophage*) 500 Mg Tab, 500 MG PO WITH BREAKFAST DINNE, #30 TAB 08/28/16 Allergies Allergies: Coded Allergies: No Known Allergy (Unverified , 06/09/18) PMhx/Soc Obesity, hypertension, diabetes mellitus, history of kidney and ureter stones History of Surgery: Yes (kidney stone SX) Anesthesia Reaction: No Hx Neurological Disorder: No Hx Respiratory Disorders: No Hx Cardiac Disorders: No Hx Psychiatric Problems: No Hx Miscellaneous Medical Probl: Yes (KIDNEY STONES) Hx Alcohol Use: Yes (OCCASIONAL) Hx Substance Use: No Hx Tobacco Use: Yes Smoking Status: Former smoker FmHx Family History: No diabetes Physical Exam Vitals Vital Signs Date Temp Pulse Resp B/P (MAP) Pulse Ox O2 O2 Flow FiO2 Time Delivery Rate 09/26/18 68 16 135/95 99 Room Air 10:45 (108) 09/26/18 97.9 68 20 188/115 98 08:05 (139) Physical Exam GENERAL: Well-developed, well-nourished, mild discomfort, afebrile CARDIAC: Regular rate and rhythm, no murmurs rubs or gallops LUNGS: Clear bilaterally no wheezing crackles or stridor ABDOMEN: Soft nontender, no guarding, no rigidity, no rebound, no psoas sign no obturator sign. Normoactive bowel sounds SKIN: Warm and dry to touch, no abrasions, contusions, or hematomas, no lacerations, no ecchymosis, no target lesions, and without ulcers EXTREMITIES: No clubbing cyanosis or edema, calves are bilaterally symmetrical, no Homans sign, no popliteal cord sign. Distal pulses equal and bilateral PSYCH: Normal affect without agitation or irritability Result Diagram: 09/26/18 0855 09/26/18 0855 Results 24 hrs Laboratory Tests Test 09/26/18 08:55 White Blood Count 9.8 10^3/ul Red Blood Count 5.71 10^6/ul Hemoglobin 15.3 g/dl Hematocrit 47.0 % Mean Corpuscular Volume 82.3 fl Mean Corpuscular Hemoglobin 26.8 pg Mean Corpuscular Hemoglobin Concent 32.6 g/dl Red Cell Distribution Width 15.7 % Platelet Count 138 10^3/UL Mean Platelet Volume 12.7 fl Immature Granulocytes % 1.800 % Neutrophils % 65.1 % Lymphocytes % 23.5 % Monocytes % 7.6 % Eosinophils % 1.2 % Basophils % 0.8 % Nucleated Red Blood Cells % 0.0 /100WBC Immature Granulocytes # 0.180 10^3/ul Neutrophils # 6.4 10^3/ul Lymphocytes # 2.3 10^3/ul Monocytes # 0.7 10^3/ul Eosinophils # 0.1 10^3/ul Basophils # 0.1 10^3/ul Nucleated Red Blood Cells # 0.0 10^3/ul Urine Color YELLOW Urine Clarity CLEAR Urine pH 5.0 Urine Specific [place] 1.018 Urine Ketones NEGATIVE mg/dL Urine Nitrite NEGATIVE mg/dL Urine Bilirubin NEGATIVE mg/dL Urine Urobilinogen NEGATIVE mg/dL Urine Leukocyte Esterase NEGATIVE Preeti/ul Urine Microscopic RBC 15 /HPF Urine Microscopic WBC 2 /HPF Urine Mucus FEW /HPF Urine Hemoglobin 2+ mg/dL Urine Glucose 1+ mg/dL Urine Total Protein NEGATIVE mg/dl Sodium Level 143 mmol/L Potassium Level 4.5 mmol/L Chloride Level 107 mmol/L Carbon Dioxide Level 23 mmol/L Anion Gap 13 Blood Urea Nitrogen 17 mg/dl Creatinine 1.12 mg/dl Est Glomerular Filtrat Rate mL/min > 60 mL/min Glucose Level 226 mg/dl Calcium Level 10.0 mg/dl Total Bilirubin 0.4 mg/dl Direct Bilirubin 0.00 mg/dl Indirect Bilirubin 0.4 mg/dl Aspartate Amino Transf (AST/SGOT) 22 IU/L Alanine Aminotransferase (ALT/SGPT) 30 IU/L Alkaline Phosphatase 67 IU/L Total Protein 7.8 g/dl Albumin 4.4 g/dl Globulin 3.40 g/dl Albumin/Globulin Ratio 1.29 Lipase 79 U/L Current Medications Medications Dose Sig/Jaison Start Time Status Last (Trade) Ordered Route PRN Stop Time Admin Dose Reason Admin Lactated 1,000 ml @ Q1H STAT 09/26/18 DC 09/26/18 Ringer's 1,000 mls/hr IV 08:39 09/26/18 08:46 09:38 Ondansetron 4 mg ONCE STAT 09/26/18 DC 09/26/18 HCl (Zofran IV 08:39 09/26/18 08:46 Inj) 08:40 Ketorolac 15 mg ONCE STAT 09/26/18 DC 09/26/18 Tromethamine IV 08:39 09/26/18 08:46 (Toradol) 08:40 Oxycodone/ 1 tab ONCE ONCE 09/26/18 DC 09/26/18 Acetaminophen PO 10:30 09/26/18 10:29 (Percocet 10:31 (5/ 325)) Procedures/MDM IV line was established patient was placed on electronic device monitor rhythm strip revealed a sinus rhythm at about 80 bpm with upright P and T waves. Patient was afebrile I administered 1 L LR IV, Toradol 15 mg IV, Zofran 4 mg IV, then Percocet 1 tablet p.o. Patient's pain completely resolved CBC and electrolytes are normal, liver function tests were normal, urinalysis revealed urine RBCs consistent with urinary tract calculus Patient agreed to forego CT imaging at this time, he is able to make urine and his labs are normal and he most likely has either nephro or ureterolithiasis similar to previous episodes. He will be discharged with a prescription for ant ibiotics and analgesics and recommendation was to follow-up with PMD for urology referral Differential diagnoses considered, included but not limited to acute coronary syndrome, pulmonary embolism, aortic dissection, abdominal aortic aneurysm, sepsis, stroke, meningitis, encephalitis, pneumonia, appendicitis, cholecystitis, bowel obstruction, pyelonephritis, nephrolithiasis, cystitis, as well as metabolic, hematologic, and electrolyte abnormalities. As well as abscess, cellulitis, fractures, and dislocations. Patient feels much better at this time, and vital signs are normal, symptoms have improved. I did give strict instructions to return to the ED if symptoms continue or worsen, patient will otherwise follow-up with primary care physician. Patient understood instructions and agreed to plan. Disclaimer: Inadvertent spelling and grammatical errors are likely due to EHR/dictation software use and do not reflect on the overall quality of patient care. Also, please note that the electronic time recorded on this note does not necessarily reflect the actual time of the patient encounter. Departure Diagnosis: Primary Impression: Urolithiasis Urinary calculus location: lower urinary tract Qualified Codes: N21.9 - Calculus of lower urinary tract, unspecified Condition: NADIA Flores MD Sep 26, 2018 09:29
[2018-09-26] MEDS ORDERED: OXYCODONE/ACETAMINOPHEN (5/325) TAB PO ONE (10:30)
[2018-09-26 10:45] VITALS: BP 135/95; PULSE 68; RESP 16
== END 2018-09-26 10:45 | disposition home or self-care (01) ==
LOC: E/R 08:04
DX: N21.9 Calculus of lower urinary tract, unspecified (principal); I10 Essential (primary) hypertension; E11.9 Type 2 diabetes mellitus without complications; E66.9 Obesity, unspecified; Z68.36 Body mass index [BMI] 36.0-36.9, adult; Z79.84 Long term (current) use of oral hypoglycemic drugs; Z87.891 Personal history of nicotine dependence
CPT/HCPCS: 36415; 80053; 81001; 83690; 85025; 87086; 96361; 96374; 96375; J1885; J2405; J7120; Z7502; Z7610